=== PATIENT | male | born 1935 | race Caucasian/White ===

== ENCOUNTER 2024-01-20 13:09 | Emergency (ER) | payer MEDICARE, SELFPAY ==
--- NOTE | ~2024-01-20 | XR_ITS ---
EXAMINATION: XR chest 2V DATE: 01/20/2024 13:52 INDICATION: Cold symptoms. Fatigue. TECHNIQUE: Frontal and lateral views of the chest were obtained. COMPARISON: None. FINDINGS: There is no pneumonia, pleural effusion, or pneumothorax. The heart size is normal. There a re changes of vertebroplasty in lower thoracic spine. IMPRESSION: 1. No acute cardiopulmonary disease. Reviewed, dictated and finalized at location B.
--- NOTE | 2024-01-20 13:21 | ED_ITS ---
HPI - URI/Sore Throat General Chief Complaint: Upper Respiratory Infection Stated Complaint: Cold Symptoms Time Seen by Provider: 01/20/24 13:21 Source: patient, RN notes reviewed and old records reviewed Mode of arrival: ambulatory Limitations: no limitations History of Present Illness HPI Narrative: 88-year-old male to [facility] with complaint runny nose for several days followed by nonproductive started yesterday. Patient reports taking NyQuil before bed last night which allowed him to rest well. However, patient reports that it symptoms persist today. Patient denies shortness of breath, difficulty swallowing, chest pain, pertinent medical history. Patient resting comfortably in exam room in no acute distress. Respirations even and nonlabored. Related Data Allergies Allergy/AdvReac Type Severity Reaction Status Date / Time No Known Allergies Allergy Verified 01/20/24 13:40 Review of Systems Review of Systems: All systems reviewed & are unremarkable except as noted in HPI and below Constitutional: Constitutional: Reports no additional constitutional complaints Eyes: Eyes: Reports no additional eye complaints ENT: Reports as per HPI and Reports nasal discharge Cardiovascular: Cardiovascular: Reports no additional cardiovascular complaints, Denies chest pain and Denies dyspnea Respiratory: Respiratory: Reports no additional respiratory complaints, Reports cough and Denies dyspnea Musculoskeletal: Musculoskeletal: Reports no additional musculoskeletal complaints Neurologic: Reports system reviewed and no additional complaints, except as documented Psychiatric: Psychiatric: Reports no additional psychiatric complaints PMFSH Comments At the time of my signature, I reviewed and agree with the nursing past medical, surgical, social, and family history. There is no relevant family history pertinent to the patient complaint. Exam Const: General: cooperative, no acute distress, well developed, alert, tired appearing, well groomed and well nourished Nutritional Appearance: well nourished Orientation/consciousness: patient oriented x3 Limitations: no limitations HENMT: Head: normal to inspection Ears: external ears normal Face/Nose/Sinus: Normal external nose present, Normal nares present, normal facial exam, No erythema and No edema Face and sinus: normal facial exam, no erythema and no edema Mouth: Yes Normal oral and palatal mucosa present Eyes: General: appearance normal, both eyes and all related structures Neck: Neck: normal visual inspection, full ROM and no meningeal signs Lymphatic: no lymphadenopathy noted and no lymphedema noted Chest: Chest palpation & inspection: normal inspection of the chest Resp: Effort & Inspection: normal respiratory effort and able to speak in complete sentences Auscultation: crackles on the right in the mid lung wiley and on the left throughout and diminished lung sounds on the right throughout Cardio: Jugular venous distension: no JVD Rate: regular rate Rhythm: regular rhythm Back/Spine/Pelvis: Cervical Spine: cervical ROM normal Skin: General skin exam: normal color, no rashes or lesions noted and turgor normal Neuro: General: patient oriented x3, gait normal, moves all extremities and no meningeal signs Speech: normal speech Gait exam (Neuro): Normal gait present Extrem: General: normal to inspection, full ROM and capillary refill normal Psych: Appearance: grossly normal and well kempt Course Course Emergency Course: Some parts of this dictation were generated by voice recognition software and may contain typographical and/or grammatical inaccuracies. Level of Care: Express Care Visit Vital Signs Vital signs: Vital Signs Temperature 36.6 C 01/20/24 13:43 Pulse Rate 80 01/20/24 13:43 Respiratory Rate 16 01/20/24 13:43 Blood Pressure 136/56 L 01/20/24 13:43 Pulse Oximetry 96 01/20/24 13:43 Temperature 36.6 C 01/20/24 13:43 Pulse Rate 80 01/20/24 13:43 Respiratory Rate 16 01/20/24 13:43 Blood Pressure 136/56 L 01/20/24 13:43 Pulse Oximetry 96 01/20/24 13:43 reviewed MDM - URI/Sore Throat MDM Narrative Medical decision making narrative: 88-year-old male to [facility] with complaint runny nose for several days followed by nonproductive started yesterday. Patient reports taking NyQuil before bed last night which allowed him to rest well. However, patient reports that it symptoms persist today. Patient denies shortness of breath, difficulty swallowing, chest pain, pertinent medical history. Patient resting comfortably in exam room in no acute distress. Respirations even and nonlabored. On auscultation, crackles heard throughout left lung wiley; crackles heard in right mid lung; diminished right lower lung sounds. Patient appears tired. Respirations shallow. cough present during exam. Radiology report negative in clinic. Patient negative for COVID in clinic. Patient is sitting in exam room nontoxic in appearance. Patient appropriate for outpatient treatment and follow-up. Discharge instructions reviewed with patient, as well as provided in writing per nursing staff. The instructions also include specific and strict return/GO TO THE ER as well as f/u information. All questions have been answered, and the patient deny any further questions with discharge and discharge plan. Some parts of this dictation were generated by voice recognition software and may contain typographical and/or grammatical inaccuracies. Differential Diagnosis Differential diagnosis: Likely upper respiratory infection, croup, otitis media, sinusitis, viral infection, bronchitis, influenza and pharyngitis Lab Data Labs: Lab Results 01/20/24 Range/Units 13:58 POC SARS CoV-2 Ag Negative (Negative) Imaging Data Radiologist's impression: EXAMINATION: XR chest 2V DATE: 01/20/2024 13:52 INDICATION: Cold symptoms. Fatigue. TECHNIQUE: Frontal and lateral views of the chest were obtained. COMPARISON: None. FINDINGS: There is no pneumonia, pleural effusion, or pneumothorax. The heart size is normal. 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 IMPRESSION: 1. No acute cardiopulmonary disease. Discharge Plan Discharge Clinical Impression: Pneumonia Patient Disposition: Home, Self-Care Condition: Stable Instructions: Cold Symptoms (ED) Additional Instructions: Your rapid strep swab was negative today at [facility]. A throat culture will be sent to the laboratory for further testing. If the test is positive, you will receive a phone call within 48 hours and an appropriate antibiotic will be i nitiated at that time. Your Covid test is also pending can take up to 72 hours. Your symptoms are likely due to a viral illness, which is not treated with antibiotics. Viral symptoms can be present for up to a few weeks. -Alternate Tylenol and Motrin per package directions for fever or pain. -Antihistamine medication such as Benadryl at night and Zyrtec/Claritin/Namrata during the day can help improve symptoms. -Use Flonase twice a day for 5 days then daily to help reduce the inflammation and dry up your sinuses. -You can also use Sudafed or Mucinex. Be sure to drink plenty of water with these medications at least 8 ounces with every dose and it is important to drink 8 to 10 glasses of water per day. Water is a natural decongestant -Eat and drink things that are easy to swallow, like tea or soup, or popsicles. -Oral rinses such as: Salt water gargles and/or may use topical anesthetic (eg. Chloraseptic spray) or lozenges to relieve dryness or throat pain). -Frequent hand washing or hand vitreo retinal surgeon is one of the best ways to prevent spread of infection. -Using a vaporizer or humidifier at night will also help thin secretions and help with coughing up phlegm. -Follow up with primary care provider in 2-3 days if condition is not improving; or seek ER visit if you have trouble breathing, cannot drink enough fluids, have muffled voice, difficulty opening your mouth, or severe swelling. Prescriptions: New azithromycin 250 mg tablet 250 mg PO DAILY Qty: 6 0RF Rx Instructions: 250 mg orally. Take TWO tablets today, then one tablet daily for 4 days. prednisone 20 mg tablet 40 mg PO DAILY Qty: 5 0RF Rx Instructions: take in morning Follow-up/Referrals: Krishna Conti MD [Primary Care Provider] -
[2024-01-20 13:43] VITALS: BP 136/56; PULSE 80; RESP 16; TEMP 36.6; O2SAT 96
[2024-01-20 14:00] LABS: EDCOVIDSCREEN Negative (Negative)
== END 2024-01-20 14:29 | disposition home or self-care (01) ==
PROVIDERS: Emergency Provider Nurse Practitioner Family; PCP Emergency Medicine
DX: J18.9 Pneumonia, unspecified organism (principal); Z20.822 Contact with and (suspected) exposure to COVID-19; Z95.828 Presence of other vascular implants and grafts
CPT/HCPCS: 71046; 87426; 99203; G0463

== ENCOUNTER 2024-01-24 08:56 | Inpatient (IN) | payer MEDICARE, SELFPAY ==
[2024-01-24] VITALS (15 sets, daily range): BP systolic 138–182; BP diastolic 63–97; PULSE 88–110; RESP 17–24; TEMP 36.4–37; O2SAT 88–99; BMI 29.2
--- NOTE | ~2024-01-24 | XR_ITS ---
EXAMINATION: XR chest 2V DATE: 01/24/2024 10:13 INDICATION: Shortness of breath and cough. TECHNIQUE: Frontal and lateral views of the chest were obtained. COMPARISON: Chest 2 views 01/20/2024 FINDINGS: There is mild atelectasis at the lung bases. No pleural effusion or pneumothorax. The heart size is normal. There are changes of vertebroplasty at one level. IMPRESSION: 1. Mild atelectasis at the lung bases. Reviewed, dictated and finalized at location A. ERCIAL PORTFOLIO MANAGER
--- NOTE | ~2024-01-24 | US_ITS ---
EXAM: RENAL ULTRASOUND HISTORY: EUGENE COMPARISON: None FINDINGS: RIGHT KIDNEY: 9.5 x 4.9 x 5.1 cm. The parenchyma of the right kidney is increased in echogenicity. No hydronephrosis or bulky renal calculi. LEFT KIDNEY: 8.4 x 4.8 x 5.0 cm No hydronephrosis or renal calculi. The parenchyma of the left kidney is increased in echogenicity. BLADDER: Sonographically unremarkable. IMPRESSION: No hydronephrosis or renal calculi. Findings suggesting medical renal disease. Reviewed, dictated and finalized at location A. ERMAN HELPER
--- NOTE | ~2024-01-24 | CT_ITS ---
EXAMINATION: CTA chest PE protocol DATE: 01/24/2024 11:32 INDICATION: Shortness of breath. TECHNIQUE: Computed tomography angiography (CTA) of the chest was performed with 100 mL Omnipaque-350 intravenous contrast timed to evaluate the pulmonary arteries. Coronal maximum intensity projection 3D-reconstructions were created by the technologist. Automated exposure control and iterative reconst ruction technique were employed. The dose-length product was 512.24 mGy-cm. COMPARISON: None. FINDINGS: Motion artifact is noted. There is mild scarring at the lung apices. There is mild atelecta sis bilaterally. Calcified left lung nodules and calcified left hilar and mediastinal lymph nodes are consistent with old granulomatous disease. There are trace right and small left pleural effusions. T here is left atrial enlargement of the heart. 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 No pericardial effusion. The central pulmonary arteries are enlarged, consistent with pulmonary art erial hypertension. There is no pulmonary embolus. Calcifications in the spleen are consistent with o ld granulomatous disease. There are gallstones in the gallbladder, which is normal in size. There is severe cervical spondylosis and mild thoracic spondylosis. There is chronic height loss of T2, T3, T4 , T8, T11, and T12 vertebral bodies with changes of vertebroplasty at T11. IMPRESSION: 1. No pulmonary embolus. Sensitivity is mildly decreased by motion artifact. 2. Trace right and small left pleural effusions. Reviewed, dictated and finalized at location A. MASTER ASSISTANT
--- NOTE | 2024-01-24 09:04 | ECG_ITS ---
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
--- NOTE | 2024-01-24 09:05 | ED.SOB ---
HPI - SOB/Dyspnea General Chief Complaint: Shortness of Breath/Dyspnea <CARLOS Fraga Last Filed: 01/24/24 14:28> Stated Complaint: SOB <CARLOS Fraga Last Filed: 01/24/24 14:28> Time Seen by Provider: 01/24/24 09:00 <CARLOS Fraga Last Filed: 01/24/24 14:28> Source: patient <CARLOS Fraga Last Filed: 01/24/24 14:28> Mode of arrival: EMS <CARLOS Fraga Last Filed: 01/24/24 14:28> Limitations: no limitations <CARLOS Fraga Last Filed: 01/24/24 14:28> History of Present Illness HPI Narrative: Patient is an 88 y/o male who presents to the ED via EMS with report of SOB. Patient reports having increased shortness breath over the last few days. Worse with exertion. Also reports having a dry persistent cough over the last couple of days. Patient was seen at an urgent care on 01/19 and tested negative for COVID, had a negative CXR, was Rx'd zithromax and steroid pack. Denies improvement of symptoms. Denies previous lung issues. Denies fevers, chest pain, swelling in his lower extremities. <CARLOS Fraga Last Filed: 01/24/24 14:28> Related Data Home Medications: Home Medications Medication Instructions Recorded Confirmed No Home Medications 01/24/24 01/24/24 <CARLOS Fraga Last Filed: 01/24/24 14:28> Allergies/Adverse Reactions: Allergies Allergy/AdvReac Type Severity Reaction Status Date / Time Penicillins Allergy Hives Verified 01/24/24 09:07 <CARLOS Fraga Last Filed: 01/24/24 14:28> Review of Systems Review of Systems: All systems reviewed & are unremarkable except as noted in HPI. <CARLOS Fraga Last Filed: 01/24/24 14:28> All systems reviewed & are unremarkable except as noted in HPI and below <Renate Garcia PA-C - Last Filed: 01/24/24 14:28> PENDING SALE TO [facility] Social History Social History: Social History Smoking packs per day: 1.5 Smoking cigarettes per day: 30.0 Years smoked: 60 Smoking pack-years: 90.00 Smoking status: Former smoker Tobacco type: cigarettes Additional smoking assessment comments: quit 2021 Alcohol intake: never Substance use: never Do You Feel Safe in your Home?: Yes Lack of Transportation: No Lack of Food: Never True Current Housing: I Have Housing Concerned About Future Housing: No Difficulty Paying Gas/Electric Bills: No Difficulty Paying for Meds: No Currently Unemployed: No Education: Master's Degree or Higher Difficulty w/ Childcare or Family Care: No Spiritual care concerns: No <Renate Garcia PA-C - Last Filed: 01/24/24 14:28> Exam Narrative: GENERAL: Ill-appearing, elderly, obese with BMI of 30.1, non-toxic, in mild acute respiratory distress. HEAD: Normocephalic, atraumatic. RESPIRATORY: Airway patent, respirations labored with accessory muscle use. Diminished lung sounds in bases bilaterally, diffuse rhonchi, scattered expiatory wheezing - worse throughout right lung wiley. Conversational dyspnea. CARDIOVASCULAR: Tachycardic with regular rhythm without murmurs, rubs, or gallops. MUSCULOSKELETAL: Moves all extremities. No gross deformities. No peripheral edema. SKIN: Warm, dry, normal color. NEURO: A&O X3. Speech clear. PSYCHIATRIC: Appropriate mood and affect. Normal interaction. <Renate Garcia PA-C - Last Filed: 01/24/24 14:28> Course ELECTRIC BATH ATTENDANT/PA Physician Supervision Physician life enrichment assistant discussed with patient with known that he would be admitted for NSTEMI, concern possible new onset heart failure, and mildly doing 2 L nasal cannula. I was available for consultation in the Emergency Department but did not personally evaluate this patient and was otherwise not involved in their care. <Xuan Mayers MD - Last Filed: 01/25/24 11:38> Vital Signs Vital signs: Vital Signs Pulse Rate 110 H 01/24/24 08:59 Respiratory Rate 24 H 01/24/24 08:59 Blood Pressure 182/97 H 01/24/24 08:59 Pulse Oximetry 88 L 01/24/24 08:59 Oxygen Delivery Room Air 01/24/24 08:59 Temperature 98.2 F 01/25/24 08:00 Pulse Rate 97 01/25/24 10:00 Respiratory Rate 16 01/25/24 08:00 Blood Pressure 127/61 01/25/24 08:00 Pulse Oximetry 93 01/25/24 08:00 Oxygen Delivery Room Air 01/25/24 08:00 Oxygen Flow Rate 2 01/24/24 16:00 <Renate Garcia PA-C - Last Filed: 01/24/24 14:28> Vital Signs Pulse Rate 110 H 01/24/24 08:59 Respiratory Rate 24 H 01/24/24 08:59 Blood Pressure 182/97 H 01/24/24 08:59 Pulse Oximetry 88 L 01/24/24 08:59 Oxygen Delivery Room Air 01/24/24 08:59 Temperature 98.2 F 01/25/24 08:00 Pulse Rate 97 01/25/24 10:00 Respiratory Rate 16 01/25/24 08:00 Blood Pressure 127/61 01/25/24 08:00 Pulse Oximetry 93 01/25/24 08:00 Oxygen Delivery Room Air 01/25/24 08:00 Oxygen Flow Rate 2 01/24/24 16:00 <Xuan Mayers MD - Last Filed: 01/25/24 11:38> MDM - SOB/Dyspnea MDM Narrative Medical decision making narrative: Patient presented to ED with several day history of increased shortness of breath, cough. Patient hypoxic upon arrival to ED down to 88% on room air, tachycardic, tachypneic, accessory muscle use, some wheezing/rhonchi. Afebrile. Placed on 2L NC with stabilization of O2 sats. Continuous nebulizer Tx ordered. ABG fairly unremarkable. Normal pH. No CO2 retention. CBC with white blood cell count of 12.3. CMP with creatinine of 1.9. No records to compare to. Minimal lactic acidosis of 2.1. Otherwise stable electrolytes. Viral swabs are negative. EKG with sinus tachycardia, first-degree AV block, right bundle-branch block. Nonspecific ST changes. No acute ST elevation or depression. Baseline troponin resulted markedly elevated to 2.27. Patient denies any chest pain at this time or over the last couple of days. BNP is also moderately elevated to 12,000. patient denies previous congestive heart failure. No echo on file. He does not appear to have any peripheral edema on exam. Given 1 dose of lasix in the ED. CXR with atelectasis. No focal consolidation. D-dimer resulted elevated. CTA chest obtained and negative for PE, does show trace johanne pleural effusions. Patient will be admitted for further evaluation of hypoxia, possible new onset CHF, NSTEMI with continued trending of troponins, cardiology evaluation. Discussed case with Anna Triana, Cardiology ELECTRIC BATH ATTENDANT, will consult. Agrees w/ plan for heparin. Discussed case with Ivelisse midlevel hospitalist, accepted patient for admission. Patient and family in agreement with plan and need for admission. <Renate Garcia PA-C - Last Filed: 01/24/24 14:28> Medical Records Attestation: I reviewed the patient's medical records. <Renate Garcia PA-C - Last Filed: 01/24/24 14:28> Lab Data Attestation: I reviewed the patient's lab results. <Renate Garcia PA-C - Last Filed: 01/24/24 14:28> Result diagrams: 01/25/24 08:05 01/25/24 08:05 <Renate Garcia PA-C - Last Filed: 01/24/24 14:28> Labs: Lab Results 01/24/24 01/24/24 01/24/24 Range/Units 09:16 09:17 09:18 WBC 12.3 H (4.5-10.0) K/mm3 RBC 4.67 (4.6-6.20) M/mm3 Hgb 13.8 L (14.0-18.0) g/dL Hct 43.2 (42.0-52.0) % MCV 92.5 (80-100) fl MCH 29.6 (26-34) pg MCHC 31.9 L (32-36) g/dl RDW 13.3 (11.5-14.5) % Plt Count 204 (150-375) k/mm3 MPV 11.1 H (7.4-10.4) fl Immature Gran % (Auto) 0.6 H (0-0.5) % Neut % (Auto) 66.4 (45.5-73.1) % Lymph % (Auto) 25.3 (18.3-44.2) % Emmons % (Auto) 6.8 (2.6-8.5) % Eos % (Auto) 0.7 (0-4.4) % Baso % (Auto) 0.2 (0.2-1.2) % Lymph # (Auto) 3.11 (0.9-3.2) K/mm3 Emmons # (Auto) 0.8 H (0.1-0.6) K/mm3 Eos # (Auto) 0.1 (0-0.3) K/mm3 Baso # (Auto) 0.0 (0.0-0.1) K/mm3 Abs Immat Gran (auto) 0.07 H (0.00-0.031) K/mm3 Absolute Neuts (auto) 8.2 H (1.3-6.7) K/mm3 Absolute Nucleated RBC 0.000 (0.0-0.012) K/mm3 Nucleated RBC % 0.0 (0.0-0.2) % PT 14.5 (11.1-14.7) Seconds INR 1.1 APTT 25.6 (22.3-36.8) Seconds D-Dimer 1.64 H (<0.48) ug/mL Sodium 142 (137-145) mmol/L Potassium 4.2 (3.4-5.0) mmol/L Chloride 107 (98-107) mmol/L Carbon Dioxide 27 (22-30) mmol/L Anion Gap 8 (4-12) mmol/L BUN 38 H (9-20) mg/dL Creatinine 1.90 H (0.7-1.3) mg/dL Estim Creat Clear Calc 25 ml/min Estimated GFR 34 L (59 - ) Glucose 162 H (65-110) mg/dL Hemoglobin A1c 7.3 H (<5.7) % Lactic Acid 2.1 H (0.7-2.0) mmol/L Calcium 9.0 (8.4-10.2) mg/dL Total Bilirubin 1.1 (0.2-1.3) mg/dL AST 30 (17-59) U/L ALT 42 (6-50) U/L Alkaline Phosphatase 110 (38-126) U/L Troponin I 2.270 H* (0.000-0.034) ng/mL NT-Pro-B Natriuret Pep Cancelled 87937 H Total Protein 8.0 (6.3-8.2) g/dL Albumin 3.8 (3.5-5.1) g/dL Procalcitonin ng/mL Urine Color (Yellow) Urine Appearance (Clear) Urine pH (5.0-9.0) Ur Specific Pine Level (1.001-1.035) Urine Protein (Negative) mg/dL Urine Glucose (UA) (Negative) mg/dL Urine Ketones (Negative) mg/dL Ur Blood (Man) (Negative) Urine Nitrate (Negative) Urine Bilirubin (Negative) Urine Urobilinogen (<2.0) mg/dL Ur Leukocyte Esterase (Negative) WILLIAM/UL Leukocyte Esterase Rfl (Negative) WILLIAM/UL Urine RBC (0-2) /hpf Urine WBC (0-3) /hpf Ur Squamous Epith Cells (Few) /hpf Urine Bacteria /hpf Urine Casts Influenza A (RT-PCR) (Negative) Influenza B (RT-PCR) (Negative) RSV (RT-PCR) (Negative) SARS-CoV-2 RNA (RT-PCR) (Negative) 01/24/24 01/24/24 01/24/24 Range/Units 09:59 12:58 13:30 WBC (4.5-10.0) K/mm3 RBC (4.6-6.20) M/mm3 Hgb (14.0-18.0) g/dL Hct (42.0-52.0) % MCV (80-100) fl MCH (26-34) pg MCHC (32-36) g/dl RDW (11.5-14.5) % Plt Count (150-375) k/mm3 MPV (7.4-10.4) fl Immature Gran % (Auto) (0-0.5) % Neut % (Auto) (45.5-73.1) % Lymph % (Auto) (18.3-44.2) % Emmons % (Auto) (2.6-8.5) % Eos % (Auto) (0-4.4) % Baso % (Auto) (0.2-1.2) % Lymph # (Auto) (0.9-3.2) K/mm3 Emmons # (Auto) (0.1-0.6) K/mm3 Eos # (Auto) (0-0.3) K/mm3 Baso # (Auto) (0.0-0.1) K/mm3 Abs Immat Gran (auto) (0.00-0.031) K/mm3 Absolute Neuts (auto) (1.3-6.7) K/mm3 Absolute Nucleated RBC (0.0-0.012) K/mm3 Nucleated RBC % (0.0-0.2) % PT (11.1-14.7) Seconds INR APTT (22.3-36.8) Seconds D-Dimer (<0.48) ug/mL Sodium (137-145) mmol/L Potassium (3.4-5.0) mmol/L Chloride (98-107) mmol/L Carbon Dioxide (22-30) mmol/L Anion Gap (4-12) mmol/L BUN (9-20) mg/dL Creatinine (0.7-1.3) mg/dL Estim Creat Clear Calc ml/min Estimated GFR (59 - ) Glucose (65-110) mg/dL Hemoglobin A1c (<5.7) % Lactic Acid 3.1 H (0.7-2.0) mmol/L Calcium (8.4-10.2) mg/dL Total Bilirubin (0.2-1.3) mg/dL AST (17-59) U/L ALT (6-50) U/L Alkaline Phosphatase (38-126) U/L Troponin I 1.820 H* (0.000-0.034) ng/mL NT-Pro-B Natriuret Pep Total Protein (6.3-8.2) g/dL Albumin (3.5-5.1) g/dL Procalcitonin 2.0 ng/mL Urine Color Yellow (Yellow) Urine Appearance Clear (Clear) Urine pH 5.5 (5.0-9.0) Ur Specific [place] Level 1.021 (1.001-1.035) Urine Protein 1+ H (Negative) mg/dL Urine Glucose (UA) Trace H (Negative) mg/dL Urine Ketones Negative (Negative) mg/dL Ur Blood (Man) Negative (Negative) Urine Nitrate Negative (Negative) Urine Bilirubin Negative (Negative) Urine Urobilinogen 0.2 (<2.0) mg/dL Ur Leukocyte Esterase (Negative) WILLIAM/UL Leukocyte Esterase Rfl Negative (Negative) WILLIAM/UL Urine RBC 0-2 (0-2) /hpf Urine WBC 0-5 (0-3) /hpf Ur Squamous Epith Cells None seen (Few) /hpf Urine Bacteria None seen /hpf Urine Casts 0-2 Influenza A (RT-PCR) Negative (Negative) Influenza B (RT-PCR) Negative (Negative) RSV (RT-PCR) Negative (Negative) SARS-CoV-2 RNA (RT-PCR) Negative (Negative) 01/24/24 01/24/24 01/25/24 Range/Units 15:57 18:37 01:08 WBC (4.5-10.0) K/mm3 RBC (4.6-6.20) M/mm3 Hgb (14.0-18.0) g/dL Hct (42.0-52.0) % MCV (80-100) fl MCH (26-34) pg MCHC (32-36) g/dl RDW (11.5-14.5) % Plt Count (150-375) k/mm3 MPV (7.4-10.4) fl Immature Gran % (Auto) (0-0.5) % Neut % (Auto) (45.5-73.1) % Lymph % (Auto) (18.3-44.2) % Emmons % (Auto) (2.6-8.5) % Eos % (Auto) (0-4.4) % Baso % (Auto) (0.2-1.2) % Lymph # (Auto) (0.9-3.2) K/mm3 Emmons # (Auto) (0.1-0.6) K/mm3 Eos # (Auto) (0-0.3) K/mm3 Baso # (Auto) (0.0-0.1) K/mm3 Abs Immat Gran (auto) (0.00-0.031) K/mm3 Absolute Neuts (auto) (1.3-6.7) K/mm3 Absolute Nucleated RBC (0.0-0.012) K/mm3 Nucleated RBC % (0.0-0.2) % PT 14.4 (11.1-14.7) Seconds INR 1.1 APTT 37.5 H 54.8 H (22.3-36.8) Seconds D-Dimer (<0.48) ug/mL Sodium (137-145) mmol/L Potassium (3.4-5.0) mmol/L Chloride (98-107) mmol/L Carbon Dioxide (22-30) mmol/L Anion Gap (4-12) mmol/L BUN (9-20) mg/dL Creatinine (0.7-1.3) mg/dL Estim Creat Clear Calc ml/min Estimated GFR (59 - ) Glucose (65-110) mg/dL Hemoglobin A1c (<5.7) % Lactic Acid (0.7-2.0) mmol/L Calcium (8.4-10.2) mg/dL Total Bilirubin (0.2-1.3) mg/dL AST (17-59) U/L ALT (6-50) U/L Alkaline Phosphatase (38-126) U/L Troponin I 1.900 H* (0.000-0.034) ng/mL NT-Pro-B Natriuret Pep Total Protein (6.3-8.2) g/dL Albumin (3.5-5.1) g/dL Procalcitonin ng/mL Urine Color (Yellow) Urine Appearance (Clear) Urine pH (5.0-9.0) Ur Specific [place] Level (1.001-1.035) Urine Protein (Negative) mg/dL Urine Glucose (UA) (Negative) mg/dL Urine Ketones (Negative) mg/dL Ur Blood (Man) (Negative) Urine Nitrate (Negative) Urine Bilirubin (Negative) Urine Urobilinogen (<2.0) mg/dL Ur Leukocyte Esterase (Negative) WILLIAM/UL Leukocyte Esterase Rfl (Negative) WILLIAM/UL Urine RBC (0-2) /hpf Urine WBC (0-3) /hpf Ur Squamous Epith Cells (Few) /hpf Urine Bacteria /hpf Urine Casts Influenza A (RT-PCR) (Negative) Influenza B (RT-PCR) (Negative) RSV (RT-PCR) (Negative) SARS-CoV-2 RNA (RT-PCR) (Negative) 01/25/24 01/25/24 Range/Units 05:09 08:05 WBC 9.9 (4.5-10.0) K/mm3 RBC 5.00 (4.6-6.20) M/mm3 Hgb 15.0 (14.0-18.0) g/dL Hct 44.7 (42.0-52.0) % MCV 89.4 (80-100) fl MCH 30.0 (26-34) pg MCHC 33.6 (32-36) g/dl RDW 13.3 (11.5-14.5) % Plt Count 228 (150-375) k/mm3 MPV 10.6 H (7.4-10.4) fl Immature Gran % (Auto) 1.0 H (0-0.5) % Neut % (Auto) 70.7 (45.5-73.1) % Lymph % (Auto) 19.3 (18.3-44.2) % Emmons % (Auto) 7.4 (2.6-8.5) % Eos % (Auto) 1.4 (0-4.4) % Baso % (Auto) 0.2 (0.2-1.2) % Lymph # (Auto) 1.92 (0.9-3.2) K/mm3 Emmons # (Auto) 0.7 H (0.1-0.6) K/mm3 Eos # (Auto) 0.1 (0-0.3) K/mm3 Baso # (Auto) 0.0 (0.0-0.1) K/mm3 Abs Immat Gran (auto) 0.10 H (0.00-0.031) K/mm3 Absolute Neuts (auto) 7.0 H (1.3-6.7) K/mm3 Absolute Nucleated RBC 0.000 (0.0-0.012) K/mm3 Nucleated RBC % 0.0 (0.0-0.2) % PT (11.1-14.7) Seconds INR APTT 93.0 H (22.3-36.8) Seconds D-Dimer (<0.48) ug/mL Sodium 137 (137-145) mmol/L Potassium 3.9 (3.4-5.0) mmol/L Chloride 94 L (98-107) mmol/L Carbon Dioxide 32 H (22-30) mmol/L Anion Gap 11 (4-12) mmol/L BUN 41 H (9-20) mg/dL Creatinine 2.10 H (0.7-1.3) mg/dL Estim Creat Clear Calc 20 ml/min Estimated GFR 30 L (59 - ) Glucose 199 H (65-110) mg/dL Hemoglobin A1c (<5.7) % Lactic Acid (0.7-2.0) mmol/L Calcium 9.1 (8.4-10.2) mg/dL Total Bilirubin (0.2-1.3) mg/dL AST (17-59) U/L ALT (6-50) U/L Alkaline Phosphatase (38-126) U/L Troponin I (0.000-0.034) ng/mL NT-Pro-B Natriuret Pep Total Protein (6.3-8.2) g/dL Albumin (3.5-5.1) g/dL Procalcitonin ng/mL Urine Color Yellow (Yellow) Urine Appearance Clear (Clear) Urine pH 6.5 (5.0-9.0) Ur Specific [place] Level 1.010 (1.001-1.035) Urine Protein Negative (Negative) mg/dL Urine Glucose (UA) Negative (Negative) mg/dL Urine Ketones Negative (Negative) mg/dL Ur Blood (Man) Negative (Negative) Urine Nitrate Negative (Negative) Urine Bilirubin Negative (Negative) Urine Urobilinogen 0.2 (<2.0) mg/dL Ur Leukocyte Esterase Negative (Negative) WILLIAM/UL Leukocyte Esterase Rfl (Negative) WILLIAM/UL Urine RBC (0-2) /hpf Urine WBC (0-3) /hpf Ur Squamous Epith Cells (Few) /hpf Urine Bacteria /hpf Urine Casts Influenza A (RT-PCR) (Negative) Influenza B (RT-PCR) (Negative) RSV (RT-PCR) (Negative) SARS-CoV-2 RNA (RT-PCR) (Negative) <Renate Garcia PA-C - Last Filed: 01/24/24 14:28> Lab Results 01/24/24 01/24/24 01/24/24 Range/Units 09:16 09:17 09:18 WBC 12.3 H (4.5-10.0) K/mm3 RBC 4.67 (4.6-6.20) M/mm3 Hgb 13.8 L (14.0-18.0) g/dL Hct 43.2 (42.0-52.0) % MCV 92.5 (80-100) fl MCH 29.6 (26-34) pg MCHC 31.9 L (32-36) g/dl RDW 13.3 (11.5-14.5) % Plt Count 204 (150-375) k/mm3 MPV 11.1 H (7.4-10.4) fl Immature Gran % (Auto) 0.6 H (0-0.5) % Neut % (Auto) 66.4 (45.5-73.1) % Lymph % (Auto) 25.3 (18.3-44.2) % Emmons % (Auto) 6.8 (2.6-8.5) % Eos % (Auto) 0.7 (0-4.4) % Baso % (Auto) 0.2 (0.2-1.2) % Lymph # (Auto) 3.11 (0.9-3.2) K/mm3 Emmons # (Auto) 0.8 H (0.1-0.6) K/mm3 Eos # (Auto) 0.1 (0-0.3) K/mm3 Baso # (Auto) 0.0 (0.0-0.1) K/mm3 Abs Immat Gran (auto) 0.07 H (0.00-0.031) K/mm3 Absolute Neuts (auto) 8.2 H (1.3-6.7) K/mm3 Absolute Nucleated RBC 0.000 (0.0-0.012) K/mm3 Nucleated RBC % 0.0 (0.0-0.2) % PT 14.5 (11.1-14.7) Seconds INR 1.1 APTT 25.6 (22.3-36.8) Seconds D-Dimer 1.64 H (<0.48) ug/mL Sodium 142 (137-145) mmol/L Potassium 4.2 (3.4-5.0) mmol/L Chloride 107 (98-107) mmol/L Carbon Dioxide 27 (22-30) mmol/L Anion Gap 8 (4-12) mmol/L BUN 38 H (9-20) mg/dL Creatinine 1.90 H (0.7-1.3) mg/dL Estim Creat Clear Calc 25 ml/min Estimated GFR 34 L (59 - ) Glucose 162 H (65-110) mg/dL Hemoglobin A1c 7.3 H (<5.7) % Lactic Acid 2.1 H (0.7-2.0) mmol/L Calcium 9.0 (8.4-10.2) mg/dL Total Bilirubin 1.1 (0.2-1.3) mg/dL AST 30 (17-59) U/L ALT 42 (6-50) U/L Alkaline Phosphatase 110 (38-126) U/L Troponin I 2.270 H* (0.000-0.034) ng/mL NT-Pro-B Natriuret Pep Cancelled 26040 H Total Protein 8.0 (6.3-8.2) g/dL Albumin 3.8 (3.5-5.1) g/dL Procalcitonin ng/mL Urine Color (Yellow) Urine Appearance (Clear) Urine pH (5.0-9.0) Ur Specific [place] Level (1.001-1.035) Urine Protein (Negative) mg/dL Urine Glucose (UA) (Negative) mg/dL Urine Ketones (Negative) mg/dL Ur Blood (Man) (Negative) Urine Nitrate (Negative) Urine Bilirubin (Negative) Urine Urobilinogen (<2.0) mg/dL Ur Leukocyte Esterase (Negative) WILLIAM/UL Leukocyte Esterase Rfl (Negative) WILLIAM/UL Urine RBC (0-2) /hpf Urine WBC (0-3) /hpf Ur Squamous Epith Cells (Few) /hpf Urine Bacteria /hpf Urine Casts Influenza A (RT-PCR) (Negative) Influenza B (RT-PCR) (Negative) RSV (RT-PCR) (Negative) SARS-CoV-2 RNA (RT-PCR) (Negative) 01/24/24 01/24/24 01/24/24 Range/Units 09:59 12:58 13:30 WBC (4.5-10.0) K/mm3 RBC (4.6-6.20) M/mm3 Hgb (14.0-18.0) g/dL Hct (42.0-52.0) % MCV (80-100) fl MCH (26-34) pg MCHC (32-36) g/dl RDW (11.5-14.5) % Plt Count (150-375) k/mm3 MPV (7.4-10.4) fl Immature Gran % (Auto) (0-0.5) % Neut % (Auto) (45.5-73.1) % Lymph % (Auto) (18.3-44.2) % Emmons % (Auto) (2.6-8.5) % Eos % (Auto) (0-4.4) % Baso % (Auto) (0.2-1.2) % Lymph # (Auto) (0.9-3.2) K/mm3 Emmons # (Auto) (0.1-0.6) K/mm3 Eos # (Auto) (0-0.3) K/mm3 Baso # (Auto) (0.0-0.1) K/mm3 Abs Immat Gran (auto) (0.00-0.031) K/mm3 Absolute Neuts (auto) (1.3-6.7) K/mm3 Absolute Nucleated RBC (0.0-0.012) K/mm3 Nucleated RBC % (0.0-0.2) % PT (11.1-14.7) Seconds INR APTT (22.3-36.8) Seconds D-Dimer (<0.48) ug/mL Sodium (137-145) mmol/L Potassium (3.4-5.0) mmol/L Chloride (98-107) mmol/L Carbon Dioxide (22-30) mmol/L Anion Gap (4-12) mmol/L BUN (9-20) mg/dL Creatinine (0.7-1.3) mg/dL Estim Creat Clear Calc ml/min Estimated GFR (59 - ) Glucose (65-110) mg/dL Hemoglobin A1c (<5.7) % Lactic Acid 3.1 H (0.7-2.0) mmol/L Calcium (8.4-10.2) mg/dL Total Bilirubin (0.2-1.3) mg/dL AST (17-59) U/L ALT (6-50) U/L Alkaline Phosphatase (38-126) U/L Troponin I 1.820 H* (0.000-0.034) ng/mL NT-Pro-B Natriuret Pep Total Protein (6.3-8.2) g/dL Albumin (3.5-5.1) g/dL Procalcitonin 2.0 ng/mL Urine Color Yellow (Yellow) Urine Appearance Clear (Clear) Urine pH 5.5 (5.0-9.0) Ur Specific [place] Level 1.021 (1.001-1.035) Urine Protein 1+ H (Negative) mg/dL Urine Glucose (UA) Trace H (Negative) mg/dL Urine Ketones Negative (Negative) mg/dL Ur Blood (Man) Negative (Negative) Urine Nitrate Negative (Negative) Urine Bilirubin Negative (Negative) Urine Urobilinogen 0.2 (<2.0) mg/dL Ur Leukocyte Esterase (Negative) WILLIAM/UL Leukocyte Esterase Rfl Negative (Negative) WILLIAM/UL Urine RBC 0-2 (0-2) /hpf Urine WBC 0-5 (0-3) /hpf Ur Squamous Epith Cells None seen (Few) /hpf Urine Bacteria None seen /hpf Urine Casts 0-2 Influenza A (RT-PCR) Negative (Negative) Influenza B (RT-PCR) Negative (Negative) RSV (RT-PCR) Negative (Negative) SARS-CoV-2 RNA (RT-PCR) Negative (Negative) 01/24/24 01/24/24 01/25/24 Range/Units 15:57 18:37 01:08 WBC (4.5-10.0) K/mm3 RBC (4.6-6.20) M/mm3 Hgb (14.0-18.0) g/dL Hct (42.0-52.0) % MCV (80-100) fl MCH (26-34) pg MCHC (32-36) g/dl RDW (11.5-14.5) % Plt Count (150-375) k/mm3 MPV (7.4-10.4) fl Immature Gran % (Auto) (0-0.5) % Neut % (Auto) (45.5-73.1) % Lymph % (Auto) (18.3-44.2) % Emmons % (Auto) (2.6-8.5) % Eos % (Auto) (0-4.4) % Baso % (Auto) (0.2-1.2) % Lymph # (Auto) (0.9-3.2) K/mm3 Emmons # (Auto) (0.1-0.6) K/mm3 Eos # (Auto) (0-0.3) K/mm3 Baso # (Auto) (0.0-0.1) K/mm3 Abs Immat Gran (auto) (0.00-0.031) K/mm3 Absolute Neuts (auto) (1.3-6.7) K/mm3 Absolute Nucleated RBC (0.0-0.012) K/mm3 Nucleated RBC % (0.0-0.2) % PT 14.4 (11.1-14.7) Seconds INR 1.1 APTT 37.5 H 54.8 H (22.3-36.8) Seconds D-Dimer (<0.48) ug/mL Sodium (137-145) mmol/L Potassium (3.4-5.0) mmol/L Chloride (98-107) mmol/L Carbon Dioxide (22-30) mmol/L Anion Gap (4-12) mmol/L BUN (9-20) mg/dL Creatinine (0.7-1.3) mg/dL Estim Creat Clear Calc ml/min Estimated GFR (59 - ) Glucose (65-110) mg/dL Hemoglobin A1c (<5.7) % Lactic Acid (0.7-2.0) mmol/L Calcium (8.4-10.2) mg/dL Total Bilirubin (0.2-1.3) mg/dL AST (17-59) U/L ALT (6-50) U/L Alkaline Phosphatase (38-126) U/L Troponin I 1.900 H* (0.000-0.034) ng/mL NT-Pro-B Natriuret Pep Total Protein (6.3-8.2) g/dL Albumin (3.5-5.1) g/dL Procalcitonin ng/mL Urine Color (Yellow) Urine Appearance (Clear) Urine pH (5.0-9.0) Ur Specific [place] (1.001-1.035) Urine Protein (Negative) mg/dL Urine Glucose (UA) (Negative) mg/dL Urine Ketones (Negative) mg/dL Ur Blood (Man) (Negative) Urine Nitrate (Negative) Urine Bilirubin (Negative) Urine Urobilinogen (<2.0) mg/dL Ur Leukocyte Esterase (Negative) WILLIAM/UL Leukocyte Esterase Rfl (Negative) WILLIAM/UL Urine RBC (0-2) /hpf Urine WBC (0-3) /hpf Ur Squamous Epith Cells (Few) /hpf Urine Bacteria /hpf Urine Casts Influenza A (RT-PCR) (Negative) Influenza B (RT-PCR) (Negative) RSV (RT-PCR) (Negative) SARS-CoV-2 RNA (RT-PCR) (Negative) 01/25/24 01/25/24 Range/Units 05:09 08:05 WBC 9.9 (4.5-10.0) K/mm3 RBC 5.00 (4.6-6.20) M/mm3 Hgb 15.0 (14.0-18.0) g/dL Hct 44.7 (42.0-52.0) % MCV 89.4 (80-100) fl MCH 30.0 (26-34) pg MCHC 33.6 (32-36) g/dl RDW 13.3 (11.5-14.5) % Plt Count 228 (150-375) k/mm3 MPV 10.6 H (7.4-10.4) fl Immature Gran % (Auto) 1.0 H (0-0.5) % Neut % (Auto) 70.7 (45.5-73.1) % Lymph % (Auto) 19.3 (18.3-44.2) % Emmons % (Auto) 7.4 (2.6-8.5) % Eos % (Auto) 1.4 (0-4.4) % Baso % (Auto) 0.2 (0.2-1.2) % Lymph # (Auto) 1.92 (0.9-3.2) K/mm3 Emmons # (Auto) 0.7 H (0.1-0.6) K/mm3 Eos # (Auto) 0.1 (0-0.3) K/mm3 Baso # (Auto) 0.0 (0.0-0.1) K/mm3 Abs Immat Gran (auto) 0.10 H (0.00-0.031) K/mm3 Absolute Neuts (auto) 7.0 H (1.3-6.7) K/mm3 Absolute Nucleated RBC 0.000 (0.0-0.012) K/mm3 Nucleated RBC % 0.0 (0.0-0.2) % PT (11.1-14.7) Seconds INR APTT 93.0 H (22.3-36.8) Seconds D-Dimer (<0.48) ug/mL Sodium 137 (137-145) mmol/L Potassium 3.9 (3.4-5.0) mmol/L Chloride 94 L (98-107) mmol/L Carbon Dioxide 32 H (22-30) mmol/L Anion Gap 11 (4-12) mmol/L BUN 41 H (9-20) mg/dL Creatinine 2.10 H (0.7-1.3) mg/dL Estim Creat Clear Calc 20 ml/min Estimated GFR 30 L (59 - ) Glucose 199 H (65-110) mg/dL Hemoglobin A1c (<5.7) % Lactic Acid (0.7-2.0) mmol/L Calcium 9.1 (8.4-10.2) mg/dL Total Bilirubin (0.2-1.3) mg/dL AST (17-59) U/L ALT (6-50) U/L Alkaline Phosphatase (38-126) U/L Troponin I (0.000-0.034) ng/mL NT-Pro-B Natriuret Pep Total Protein (6.3-8.2) g/dL Albumin (3.5-5.1) g/dL Procalcitonin ng/mL Urine Color Yellow (Yellow) Urine Appearance Clear (Clear) Urine pH 6.5 (5.0-9.0) Ur Specific [place] 1.010 (1.001-1.035) Urine Protein Negative (Negative) mg/dL Urine Glucose (UA) Negative (Negative) mg/dL Urine Ketones Negative (Negative) mg/dL Ur Blood (Man) Negative (Negative) Urine Nitrate Negative (Negative) Urine Bilirubin Negative (Negative) Urine Urobilinogen 0.2 (<2.0) mg/dL Ur Leukocyte Esterase Negative (Negative) WILLIAM/UL Leukocyte Esterase Rfl (Negative) WILLIAM/UL Urine RBC (0-2) /hpf Urine WBC (0-3) /hpf Ur Squamous Epith Cells (Few) /hpf Urine Bacteria /hpf Urine Casts Influenza A (RT-PCR) (Negative) Influenza B (RT-PCR) (Negative) RSV (RT-PCR) (Negative) SARS-CoV-2 RNA (RT-PCR) (Negative) <Xuan Mayers MD - Last Filed: 01/25/24 11:38> ABG Data ABG results: 01/24/24 09:25 Puncture Site Right radial ABG pH 7.370 ABG pCO2 43.8 ABG pO2 74.5 L ABG PO2/FiO2 Ratio 2.66 ABG HCO3 24.8 ABG O2 Saturation 94.6 L ABG O2 Content 18.1 ABG Base Excess -0.7 A-a Gradient 73.5 Oxyhemoglobin 93.3 Total Hemoglobin 13.8 O2 Delivery Device Nasal cannula O2 Liters/Min 2.0 FiO2 28 <Renate Garcia PA-C - Last Filed: 01/24/24 14:28> 01/24/24 09:25 Puncture Site Right radial ABG pH 7.370 ABG pCO2 43.8 ABG pO2 74.5 L ABG PO2/FiO2 Ratio 2.66 ABG HCO3 24.8 ABG O2 Saturation 94.6 L ABG O2 Content 18.1 ABG Base Excess -0.7 A-a Gradient 73.5 Oxyhemoglobin 93.3 Total Hemoglobin 13.8 O2 Delivery Device Nasal cannula O2 Liters/Min 2.0 FiO2 28 <Xuan Mayers MD - Last Filed: 01/25/24 11:38> Attestation: I personally reviewed and interpreted this ABG as follows: <Renate Garcia PA-C - Last Filed: 01/24/24 14:28> Imaging Data Attestation: I personally reviewed and interpreted this imaging study as follows: <CARLOS Fraga Last Filed: 01/24/24 14:28> Radiologist's impression: ITS Impressions Chest X-Ray 01/24/24 10:23 IMPRESSION: 1. Mild atelectasis at the lung bases. Chest CTA 01/24/24 11:36 IMPRESSION: 1. No pulmonary embolus. Sensitivity is mildly decreased by motion artifact. 2. Trace right and small left pleural effusions. <Renate Garcia PA-C - Last Filed: 01/24/24 14:28> ECG Data EKG #1: Attestation: I personally reviewed and interpreted this ECG as follows: <CARLOS Fraga Last Filed: 01/24/24 14:28> ECG completion date: 01/24/24 <CARLOS Fraga Last Filed: 01/24/24 14:28> ECG completion time: 09:12 <CARLOS Fraga Last Filed: 01/24/24 14:28> EKG Interpretation: tachycardia (103), sinus rhythm (1st degree AV block), PVCs, non-specific ST changes and RBBB <CARLOS Fraga Last Filed: 01/24/24 14:28> Discharge Plan Discharge Clinical Impression: Non-ST elevation MA (NSTEMI), Acute hypoxic respiratory failure, CHF (congestive heart failure), Lactic acidosis <CARLOS Fraga Last Filed: 01/24/24 14:28> Patient Disposition: Still a Patient <CARLOS Fraga Last Filed: 01/24/24 14:28> Condition: Serious <CARLOS Fraga Last Filed: 01/24/24 14:28>
[2024-01-24 09:30] LABS: Basophils Percent Auto 0.2 % (0.2-1.2); Eosinophils Absolute Auto 0.1 K/mm3 (0-0.3); Eosinophils Percent Auto 0.7 % (0-4.4); Hematocrit 43.2 % (42.0-52.0); Hemoglobin 13.8 g/dL (14.0-18.0); Immature Granulocyte Absolute 0.07 K/mm3 (0.00-0.031); Immature Granulocyte Percent A 0.6 % (0-0.5); Lymphocytes Absolute Auto 3.11 K/mm3 (0.9-3.2); Lymphocytes Percent Auto 25.3 % (18.3-44.2); Mean Corpuscular HGB Conc 31.9 g/dl (32-36); Mean Corpuscular Hemoglobin 29.6 pg (26-34); Mean Corpuscular Volume 92.5 fl (80-100); Mean Platelet Volume 11.1 fl (7.4-10.4); Monocytes Absolute Auto 0.8 K/mm3 (0.1-0.6); Monocytes Percent Auto 6.8 % (2.6-8.5); Neutrophils Absolute Auto 8.2 K/mm3 (1.3-6.7); Neutrophils Percent Auto 66.4 % (45.5-73.1); Platelet Count Result 204 k/mm3 (150-375); Red Blood Count 4.67 M/mm3 (4.6-6.20); Red Cell Distribution Width 13.3 % (11.5-14.5); White Blood Count 12.3 K/mm3 (4.5-10.0)
[2024-01-24 09:33] LABS: Alveolar/Arterial O2 Gradient 73.5 mmHg; Base Excess ABG -0.7 mEq/l (+/-2.0); Device NASAL CANNULA; Fractional Inspired Oxygen 28 %; HCO3 ABG 24.8 mEq/l (22.0-26.0); Modified Allen's Test Pass; Oxygen Content ABG 18.1 %vol (16.0-22.0); Oxygen Saturation ABG 94.6 % (95.0-100.0); Oxyhemoglobin 93.3 % THb (90.0-100.0); PCO2 ABG 43.8 mmHg (35.0-45.0); PO2 ABG 74.5 mmHg (80.0-100.0); PO2 FiO2 Ratio Arterial Blood 2.66 %; Site Drawn RIGHT RADIAL; Total Hemoglobin 13.8 g/dL (12.0-18.0)
[2024-01-24] MEDS: LEVALBUTEROL NEB 1.25 MG/3 ML 2.5 MG INHALATION (09:36)
[2024-01-24] MEDS: IPRATROPIUM BR 0.02% INH SOLN 0.5 MG/2.5 ML VIAL 1.5 MG INHALATION (09:36)
[2024-01-24 09:40] LABS: Lactic Acid Reflex 2.1 mmol/L (0.7-2.0)
[2024-01-24 09:41] LABS: Alanine Aminotransferase 42 U/L (6-50); Albumin Level 3.8 g/dL (3.5-5.1); Alkaline Phosphatase 110 U/L (38-126); Anion Gap 8 mmol/L (4-12); Aspartate Amino Transferase 30 U/L (17-59); Bilirubin,Total 1.1 mg/dL (0.2-1.3); Blood Urea Nitrogen 38 mg/dL (9-20); Carbon Dioxide 27 mmol/L (22-30); Chloride 107 mmol/L (98-107); Estimated CRCL calculation 25 ml/min; Estimated Glomerular Filt Rate 34; Glucose 162 mg/dL (65-110); Potassium 4.2 mmol/L (3.4-5.0); Sodium 142 mmol/L (137-145)
[2024-01-24 09:55] LABS: NT Pro B Type Natriuretic Pept 12000 pg/mL (19.9-100)
[2024-01-24 10:02] LABS: INR 1.1; Prothrombin Time 14.5 Seconds (11.1-14.7)
[2024-01-24 10:03] LABS: Partial Thromboplastin Time 25.6 Seconds (22.3-36.8)
[2024-01-24 10:34] LABS: D Dimer 1.64 ug/mL (<0.48)
[2024-01-24 10:42] LABS: Influenza A QL RT-PCR Negative (Negative); Influenza B QL RT-PCR Negative (Negative); RSV RNA, RT-PCR Negative (Negative); SARS-CoV-2 RNA PCR Negative (Negative)
[2024-01-24] MEDS: FUROSEMIDE INJ 40 MG/4 ML VIAL IV PUSH ×2 (10:56→22:20)
[2024-01-24] MEDS: HEPARIN SODIUM 5,000 UNITS/ML VIAL 4000 UNITS IV PUSH ×2 (12:19→19:01)
[2024-01-24] MEDS: HEPARIN SOD/D5W 100 UNITS/ML 25,000 UNITS/250 ML BAG 8 UNITS IV CONT (12:19)
--- NOTE | 2024-01-24 12:20 | P.HP_ITS ---
H&P: HPI History of Present Illness Date/Time: 01/24/24 12:20 Chief Complaint: shortness of breath Narrative: 88-year-old male presents to the hospital for shortness of breath. He states that the shortness of breath has increased over the last couple days. Per the the patient does not go to the doctor however she brought him into the emergency room due to him being short of breath. Patient is hard of hearing and denies complaints. Patient denies history of chronic comorbidities. And takes no home medications. In ED is found have leukocytosis at 12.3, D-dimer of 1.64, ABG with P O2 of 74.5, creatinine of 1.9, lactic acid of 2.1, troponin baseline of 2.27, BNP of 12,000, respiratory panel is negative, CTA shows no pulmonary embolism, no pneumonia, and trace bilateral small pleural effusions. Patient was started on heparin drip and given IV Lasix, Cardiology was consulted and agreed with plan. Will admit to patient to IMU for close monitoring of respiratory status. Patient reassessed at 8:00 p.m. with severe rhonchi IV Lasix x1 given again Review of Systems Review of Systems: 12 systems were reviewed and are negativ e except for as per HPI. [facility] Social History Social History Smoking packs per day: 1.5 Smoking cigarettes per day: 30.0 Years smoked: 60 Smoking pack-years: 90.00 Smoking status: Former smoker Tobacco type: cigarettes Additional smoking assessment comments: quit 2021 Alcohol intake: never Substance use: never Do You Feel Safe in your Home?: Yes Lack of Transportation: No Lack of Food: Never True Current Housing: I Have Housing Concerned About Future Housing: No Difficulty Paying Gas/Electric Bills: No Difficulty Paying for Meds: No Currently Unemployed: No Education: Master's Degree or Higher Difficulty w/ Childcare or Family Care: No Spiritual care concerns: No Meds Home Medications and Allergies Home Medications Medication Instructions Recorded Confirmed Type No Home Medications 01/24/24 01/24/24 History Allergies Allergy/AdvReac Type Severity Reaction Status Date / Time Penicillins Allergy Hives Verified 01/24/24 09:07 Vital Signs Vital Signs - 24 hr 01/24/24 08:59 01/24/24 09:07 11/04/24 09:07 Temperature 98.5 F Pulse Rate 110 H Respiratory Rate 24 H Blood Pressure 182/97 H Pulse Oximetry 88 L 95 Oxygen Delivery Room Air Nasal Cannula Oxygen Flow Rate 2 01/24/24 09:36 01/24/24 10:39 01/24/24 10:55 Temperature Pulse Rate 95 105 H 108 H Respiratory Rate 20 20 24 H Blood Pressure 162/78 H 166/70 H Pulse Oximetry 98 98 Oxygen Delivery Oxygen Flow Rate Exam Narrative: General: well appearing, appears stated age. HEENT: normocephalic, atraumatic. Mucous membranes moist. EOMI, PERRLA, bilateral sclera anicteric, no conjunctival injection. Neck supple without JVD, lymphadenopathy, or bruit. Respiratory: clear to ascultation bilaterally. No rales/rhonic/wheezes. Cardiovascular: Regular rate and rhythm, normal S1-S2 upon ascultation. No murmurs, rubs, or clicks. PMI is nondisplaced, capillary refill less than 3 second. Abdomen: Soft, round, no pulsatile masses, nondistended and nontender. No rebound, no guarding. No CVA tenderness, no hepatosplenomegaly. Bowel sounds present to all four quadrants. No high pitch or tinkling sounds, resonant to percussion. Extremities: No cyanosis, clubbing, or edema present. Pulses are palpable 2/2. Active ROM to all four extremities. Neuro: Alert and orientated x 4. PERRLA. Cranial nerves 2-12 intact without focal deficit. Skin: Warm, dry, and intact, without rash, erythema, or lesion. Psych: pleasant, cooperative, normal speech, normal affect, no hallucinations, no dysarthia H&P: Results Labs Labs: Short CBC 01/24/24 Range/Units 09:17 WBC 12.3 H (4.5-10.0) K/mm3 Hgb 13.8 L (14.0-18.0) g/dL Hct 43.2 (42.0-52.0) % Plt Count 204 (150-375) k/mm3 [facility] 01/24/24 09:18 Sodium 142 Potassium 4.2 Chloride 107 Carbon Dioxide 27 BUN 38 H Creatinine 1.90 H Glucose 162 H Calcium 9.0 Cardiac Enzymes 01/24/24 Range/Units 09:18 Troponin I 2.270 H* (0.000-0.034) ng/mL Liver Function 01/24/24 Range/Units 09:18 Total Bilirubin 1.1 (0.2-1.3) mg/dL AST 30 (17-59) U/L ALT 42 (6-50) U/L Alkaline Phosphatase 110 (38-126) U/L Albumin 3.8 (3.5-5.1) g/dL Assessment and Plan Assessment and plan (1) Non-ST elevation NM (NSTEMI): Code(s): I21.4 - Non-ST elevation (NSTEMI) myocardial infarction Status: Acute Assessment and Plan: Cardiology consulted Heparin drip per protocol Trend troponin, troponins trending down NPO midnight for possible catheterization, likely demand ischemia (2) CHF (congestive heart failure): Code(s): I50.9 - Heart failure, unspecified Status: Acute Assessment and Plan: Echocardiogram pending Heart healthy diet IV Lasix x2 Daily IV Lasix scheduled, adjust as needed (3) Acute hypoxic respiratory failure: Code(s): J96.01 - Acute respiratory failure with hypoxia Status: Acute Assessment and Plan: Secondary to 1 and 2 Telemetry monitoring (4) Leukocytosis: Code(s): D72.829 - Elevated white blood cell count, unspecified Status: Acute Assessment and Plan: CT chest negative for pneumonia Blood cultures pending UA pending No infective source identified (5) Hyperglycemia: Code(s): R73.9 - Hyperglycemia, unspecified Status: Acute Assessment and Plan: Patient denies history of diabetes Hemoglobin A1c pending (6) Lactic acidosis: Code(s): E87.20 - Acidosis, unspecified Status: Acute Assessment and Plan: No fluid bolus given per sepsis protocol due to patient being fluid overloaded No pulmonary infective process seen on CT UA pending Blood cultures pending No known source of infection Quality VTE Prophylaxis VTE prophylaxis: mechanical ordered and pharmacologic ordered Hospitalist MIPS Advance Care Plan I have confirmed that the patient's Advanced Care Plan is present, code status is documented, or surrogate decision maker is listed in patient medical record.: Yes Medication Reconciliation I have utilized all available resources to obtain, update and review the patients current medications (includes all prescriptions, OTC, herbals, cannabis, and nutritional supplements).: Yes
[2024-01-24 12:23] LABS: Reflex Lactic Acid Yes or No Add Lactic
--- NOTE | 2024-01-24 12:26 | PC.NURSE ---
Pt c/o thirst. Provider made aware. CARLOS Dewitt states pt can drink water.
--- NOTE | 2024-01-24 12:46 | P.CONCA_ITS ---
Assessment and Plan Assessment and plan (1) CHF (congestive heart failure): Code(s): I50.9 - Heart failure, unspecified Status: Acute Assessment and Plan: This would be a new diagnosis for the patient. Agree with IV furosemide for now. * Check and echo * Accurate I&O * Daily weights * Wean O2 as tolerated (2) Non-ST elevation [place] (NSTEMI): Code(s): I21.4 - Non-ST elevation (NSTEMI) myocardial infarction Status: Acute Assessment and Plan: He denies any chest pain, however initial troponin is elevated at 2.270. Likely demand ischemia because of hypoxia and volume overload. However, cannot rule out underlying CAD. His EKG dose not show any acute ischemic changes. * Agree with heparin drip for now * Will review echo for LV dysfunction and/or wall motion abnormalities. * Trend troponin * NPO after midnight for possible coronary angiogram tomorrow depending on clinical course, troponin trend, and echo results (3) Acute hypoxic respiratory failure: Code(s): J96.01 - Acute respiratory failure with hypoxia Status: Acute Assessment and Plan: Secondary to CHF. History of Present Illness History of Present Illness Consult date/time: 01/24/24 12:46 Requesting physician: Renate Garcia PA-C Consult reason: congestive heart failure Reason For Visit: SOB Narrative: Vincent Wade is an 88 year old male with reportedly no cardiac history. He presents to the emergency department with complaints of cough and shortness of breath. He began feeling poorly around the middle of last week and went to urgent care where he was tested for influenza and COVID which were negative. According to the patient's he was prescribed a Z pack and prednisone but his symptoms persisted so she decided to bring him to the hospital for evaluation. He was hypoxic when he presented with SpO2 88%. He denies having any swelling, orthopnea, paroxysmal nocturnal dyspnea, chest pain, palpitations. He denies any history of chest pain. In the ED his workup has revealed leukocytosis with WBC 12.3, D-dimer of 1.64, ABG with P O2 of 7.45, creatinine of 1.9, lactic acid of 2.1, initial troponin 2.27, BNP of 12,000, respiratory panel is negative, CTA shows no pulmonary embolism, no pneumonia, and trace bilateral small pleural effusions. He has been started in a heparin drip and received IV furosemide. He is lying comfortably in bed at the time of my evaluation and does not have any active complaints. Review of Systems Review of Systems: All systems reviewed & are unremarkable except as noted in HPI and below Meds Home Medications and Allergies Home Medications Medication Instructions Recorded Confirmed Type azithromycin 250 mg tablet 250 mg PO DAILY #6 tabs 01/20/24 Rx prednisone 20 mg tablet 40 mg PO DAILY #5 tabs 01/20/24 Rx Allergies Allergy/AdvReac Type Severity Reaction Status Date / Time Penicillins Allergy Hives Verified 01/24/24 09:07 Vital Signs Vital Signs - 24 hr 01/24/24 08:59 01/24/24 09:07 01/24/24 09:07 Temperature 36.9 C Pulse Rate 110 H Respiratory Rate 24 H Blood Pressure 182/97 H Pulse Oximetry 88 L 95 Oxygen Delivery Room Air Nasal Cannula Oxygen Flow Rate 2 01/24/24 09:36 01/24/24 10:39 01/24/24 10:55 Temperature Pulse Rate 95 105 H 108 H Respiratory Rate 20 20 24 H Blood Pressure 162/78 H 166/70 H Pulse Oximetry 98 98 Oxygen Delivery Oxygen Flow Rate 01/24/24 12:22 Temperature Pulse Rate 104 H Respiratory Rate 17 Blood Pressure 149/74 H Pulse Oximetry 96 Oxygen Delivery Oxygen Flow Rate Results Labs and Meds 01/24/24 09:17 01/24/24 09:18 Lab results: Cardiac Enzymes 01/24/24 Range/Units 09:18 AST 30 (17-59) U/L Troponin I 2.270 H* (0.000-0.034) ng/mL Coagulation 01/24/24 Range/Units 09:17 PT 14.5 (11.1-14.7) Seconds APTT 25.6 (22.3-36.8) Seconds CBC 01/24/24 Range/Units 09:17 WBC 12.3 H (4.5-10.0) K/mm3 RBC 4.67 (4.6-6.20) M/mm3 Hgb 13.8 L (14.0-18.0) g/dL Hct 43.2 (42.0-52.0) % Plt Count 204 (150-375) k/mm3 Lymph # (Auto) 3.11 (0.9-3.2) K/mm3 [place] # (Auto) 0.8 H (0.1-0.6) K/mm3 Eos # (Auto) 0.1 (0-0.3) K/mm3 Baso # (Auto) 0.0 (0.0-0.1) K/mm3 Comprehensive Metabolic Panel 01/24/24 Range/Units 09:18 Sodium 142 (137-145) mmol/L Potassium 4.2 (3.4-5.0) mmol/L Chloride 107 (98-107) mmol/L Carbon Dioxide 27 (22-30) mmol/L BUN 38 H (9-20) mg/dL Creatinine 1.90 H (0.7-1.3) mg/dL Glucose 162 H (65-110) mg/dL Calcium 9.0 (8.4-10.2) mg/dL AST 30 (17-59) U/L ALT 42 (6-50) U/L Alkaline Phosphatase 110 (38-126) U/L Total Protein 8.0 (6.3-8.2) g/dL Albumin 3.8 (3.5-5.1) g/dL Patient Weight 01/24/24 23:59 Weight 82 kg
[2024-01-24 13:12] LABS: Lactic Acid 3.1 mmol/L (0.7-2.0)
[2024-01-24 13:44] LABS: Add Urine Microscopic? YES; Appearance Urine Clear (Clear); Bacteria Urine None Seen /hpf; Bilirubin Urine Negative (Negative); Blood Urine Negative (Negative); Color Urine Yellow (Yellow); Glucose Urine UA Trace mg/dL (Negative); Ketones Urine Negative (Negative); Leukocyte Esterase Ur Negative LEU/UL (Negative); Nitrate Urine Negative (Negative); Non Pathogenic Casts 0-2; Protein Urine 1+ mg/dL (Negative); RBC Urine 0-2 /hpf (0-2); Specific Grav Ur 1.021 (1.001-1.035); Squamous Epithelial Cell Urine None Seen /hpf (Few); Urobilinogen Urine 0.2 mg/dL (<2.0); WBC Urine 0-5 /hpf (0-3); pH Urine 5.5 (5.0-9.0)
--- NOTE | 2024-01-24 15:43 | ADMGEN ---
This patient, Vincent Wade Jr., was admitted to IMU Room 209-01. Patient/family oriented to hospital policies and general routines including ID bracelet, bed and alarms, visiting hours, pain management, procedures, bathroom and other care routines, personal items, smoking policy, room service/diet, and visiting hours. Information on how to activate the Rapid Response Team has been discussed. Patient/Family are encouraged to report perceived risks to care and to ask questions if they do not understand what they are told or what they should do. Report received from ESTELA Almazan @ [phone]
[2024-01-24 18:54] LABS: INR 1.1; Prothrombin Time 14.4 Seconds (11.1-14.7)
[2024-01-24 18:55] LABS: Partial Thromboplastin Time 37.5 Seconds (22.3-36.8)
[2024-01-25] VITALS (19 sets, daily range): BP systolic 99–140; BP diastolic 42–78; PULSE 63–97; RESP 16–24; TEMP 36.5–37; O2SAT 91–98
[2024-01-25 01:25] LABS: Partial Thromboplastin Time 54.8 Seconds (22.3-36.8)
[2024-01-25] MEDS: HEPARIN SODIUM 5,000 UNITS/ML VIAL 4000 UNITS IV PUSH (02:02)
[2024-01-25 05:18] LABS: Add Urine Microscopic? NO; Appearance Urine Clear (Clear); Bilirubin Urine Negative (Negative); Blood Urine Negative (Negative); Color Urine Yellow (Yellow); Glucose Urine UA Negative (Negative); Ketones Urine Negative (Negative); Leukocyte Esterase Ur Negative LEU/UL (Negative); Nitrate Urine Negative (Negative); Protein Urine Negative (Negative); Urobilinogen Urine 0.2 mg/dL (<2.0); pH Urine 6.5 (5.0-9.0)
[2024-01-25 07:32] LABS: Hemoglobin A1C 7.3 % (<5.7)
[2024-01-25] MEDS: FUROSEMIDE INJ 40 MG/4 ML VIAL IV PUSH (08:05)
[2024-01-25 08:12] LABS: Basophils Percent Auto 0.2 % (0.2-1.2); Eosinophils Absolute Auto 0.1 K/mm3 (0-0.3); Eosinophils Percent Auto 1.4 % (0-4.4); Hematocrit 44.7 % (42.0-52.0); Lymphocytes Absolute Auto 1.92 K/mm3 (0.9-3.2); Lymphocytes Percent Auto 19.3 % (18.3-44.2); Mean Corpuscular HGB Conc 33.6 g/dl (32-36); Mean Corpuscular Volume 89.4 fl (80-100); Mean Platelet Volume 10.6 fl (7.4-10.4); Monocytes Absolute Auto 0.7 K/mm3 (0.1-0.6); Monocytes Percent Auto 7.4 % (2.6-8.5); Neutrophils Percent Auto 70.7 % (45.5-73.1); Platelet Count Result 228 k/mm3 (150-375); Red Cell Distribution Width 13.3 % (11.5-14.5); White Blood Count 9.9 K/mm3 (4.5-10.0)
--- NOTE | 2024-01-25 10:12 | P.PNIM_ITS ---
Progress Note: A&P Assessment and Plan (1) Diabetes mellitus: Code(s): E11.9 - Type 2 diabetes mellitus without complications Status: Acute (2) EUGENE (acute kidney injury): Code(s): N17.9 - Acute kidney failure, unspecified Status: Acute (3) Hyperglycemia: Code(s): R73.9 - Hyperglycemia, unspecified Status: Acute (4) CHF (congestive heart failure): Code(s): I50.9 - Heart failure, unspecified Status: Acute (5) Non-ST elevation [place] (NSTEMI): Code(s): I21.4 - Non-ST elevation (NSTEMI) myocardial infarction Status: Acute (6) Acute hypoxic respiratory failure: Code(s): J96.01 - Acute respiratory failure with hypoxia Status: Acute Plan 88-year-old male presents to the hospital for shortness of breath. He states that the shortness of breath has increased over the last couple days. Per the the patient does not go to the doctor however she brought him into the emergency room due to him being short of breath. Non-ST elevation MT (NSTEMI): Code(s): I21.4 - Non-ST elevation (NSTEMI) myocardial infarction Status: Acute Assessment and Plan: Cardiology consulted Heparin drip per protocol Trend troponin, troponins trending down plan catheterization tomorrow CHF (congestive heart failure): Code(s): I50.9 - Heart failure, unspecified Status: Acute Assessment and Plan: Echocardiogram pending Heart healthy diet IV Lasix x2 Daily IV Lasix scheduled, adjust as needed Acute hypoxic respiratory failure: Code(s): J96.01 - Acute respiratory failure with hypoxia Status: Acute Assessment and Plan: Secondary to 1 and 2 Telemetry monitoring now on room air Acute bacterial bronchitis Leukocytosis: Code(s): D72.829 - Elevated white blood cell count, unspecified Status: Acute Assessment and Plan: CT chest negative for pneumonia Blood cultures pending UA unremarkable Patient has cough with scant phlegm, worsening in past few more days days Suspecting acute bacterial bronchitis Patient also has scattered wheezing bilaterally Start doxycycline 100 mg q.12 hours p.o., Start DuoNeb scheduled Q 8 hours EUGENE versus CKD Elevated BUN creatinine 38/1.9,unknown baseline Urinalysis unremarkable Follow-up renal ultrasound 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 Patient has mild cough with some phlegm. Labs reviewed, patient is afebrile, blood pressure stable, on the lower side Exam Narrative: GENERAL: Pleasant, in no acute distress. Well-nourished. - EYES: EOMI. Anicteric. - HENT: Moist mucous membranes. - LUNGS: Scattered wheezing bilaterally - CARDIOVASCULAR: Regular rate and rhyth m. No murmur. No JVD. - ABDOMEN: Soft, non-tender and non-dist ended. No palpable masses. - EXTREMITIES: No edema. Peripheral puls es 2+. Non-tender. - NEUROLOGIC: No focal neurological defi cits. CN II-XII grossly intact. - PSYCHIATRIC: Awake, Alert and oriented x 3. Appropriate mood and affect. - SKIN: No rashes or lesions. Warm. - LYMPH: No cervical lymphadenopathy. Objective Data Vital Signs Vital Signs: Vital Signs - 24 hr 01/24/24 10:39 01/24/24 10:55 01/24/24 12:22 Temperature Pulse Rate 105 H 108 H 104 H Respiratory Rate 20 24 H 17 Blood Pressure 166/70 H 149/74 H Pulse Oximetry 98 96 Oxygen Delivery Oxygen Flow Rate 01/24/24 14:14 01/24/24 15:13 01/24/24 16:04 Temperature 97.5 F L Pulse Rate 101 H 96 94 Respiratory Rate 21 H 20 20 Blood Pressure 156/72 H 138/74 144/71 H Pulse Oximetry 99 98 98 Oxygen Delivery Oxygen Flow Rate 01/24/24 16:00 01/24/24 16:00 01/24/24 18:00 Temperature Pulse Rate 94 92 Respiratory Rate Blood Pressure Pulse Oximetry 95 Oxygen Delivery Nasal Cannula Oxygen Flow Rate 2 01/24/24 19:58 01/24/24 20:00 01/24/24 20:33 Temperature 98.6 F Pulse Rate 92 88 89 Respiratory Rate 20 20 Blood Pressure 148/63 H Pulse Oximetry 98 96 Oxygen Delivery Room Air Oxygen Flow Rate 01/24/24 22:00 01/25/24 00:02 01/25/24 00:00 Temperature 97.7 F Pulse Rate 88 84 86 Respiratory Rate 20 Blood Pressure 140/78 Pulse Oximetry 98 Oxygen Delivery Oxygen Flow Rate 01/25/24 00:00 01/25/24 02:00 01/25/24 04:00 Temperature Pulse Rate 84 84 96 Respiratory Rate 18 Blood Pressure Pulse Oximetry 98 Oxygen Delivery Room Air Oxygen Flow Rate 01/25/24 04:00 01/25/24 04:00 01/25/24 06:00 Temperature 97.8 F Pulse Rate 96 82 79 Respiratory Rate 20 18 Blood Pressure 137/66 Pulse Oximetry 98 98 Oxygen Delivery Room Air Oxygen Flow Rate 01/25/24 08:00 01/25/24 08:00 Temperature 98.2 F Pulse Rate 83 Respiratory Rate 16 Blood Pressure 127/61 Pulse Oximetry 93 Oxygen Delivery Room Air Oxygen Flow Rate Intake/Output Intake/Output: Intake & Output 01/23/24 01/23/24 01/24/24 01/25/24 00:59 23:59 23:59 23:59 Intake Total 273.5 288.4 Output Total 1000 1450 Balance -726.5 -1161.6 Meds/Results Medications: Active Medications Generic Name Dose Route Start Last Admin Trade Name Freq PRN Reason Stop Dose Admin Dextrose 12.5 gm 01/24/24 12:21 Dextrose 50% 25 Gm/50 Ml Syringe IV PUSH PRN PRN Hypoglycemia Protocol Furosemide 40 mg 01/25/24 09:00 01/25/24 08:05 Furosemide Inj 40 Mg/4 Ml Vial IV PUSH 40 mg DAILY JUAN A Administration Glucagon 1 mg 01/24/24 12:21 Glucagon For Inj 1 Mg Vial IM PRN PRN Hypoglycemia Protocol Glucose 15 gm 01/24/24 12:21 Glucose Oral Gel 15 Gm Of Glucse In 37.5 Gm Tube PO PRN PRN Hypoglycemia Protocol Heparin Sodium (Porcine) 4,000 units 01/24/24 11:53 01/25/24 02:02 Heparin Sodium 5,000 Units/Ml Vial IV PUSH 4,000 units PRN PRN Administration aPTT less than 55 seconds Heparin Sodium (Porcine) 3,000 units 01/24/24 12:12 Heparin Sodium 5,000 Units/Ml Vial IV PUSH PRN PRN aPTT 55 - 70 seconds Heparin Sodium/Dextrose 25,000 units in 250 mls @ 14 mls/hr 01/24/24 11:55 01/25/24 08:32 Heparin Sodium/D5w 100 Units/Ml IV CONT 1,400 units/hr .[id number] JUAN A 14 mls/hr Titration Protocol 1,400 UNITS/HR Dextrose 1,000 mls @ 100 mls/hr 01/24/24 12:21 Dextrose 5% 1,000 Ml IVPB PRN PRN Hypoglycemia Protocol Perflutren Lipid Microsphere 0 ml 01/24/24 12:21 Perflutren Lipid Microspheres 1.5 Ml Vial Diluted To 10 Ml Total Volume IV PUSH 01/27/24 12:22 ONCE PRN adequate visualization Protocol Radiology Results: ITS Impressions Chest X-Ray 01/24/24 10:23 IMPRESSION: 1. Mild atelectasis at the lung bases. Chest CTA 01/24/24 11:36 IMPRESSION: 1. No pulmonary embolus. Sensitivity is mildly decreased by motion artifact. 2. Trace right and small left pleural effusions. Labs Labs: Laboratory Results - last 24 hr 01/24/24 01/24/24 01/24/24 09:16 09:17 09:59 WBC RBC Hgb Hct MCV MCH MCHC RDW Plt Count MPV Immature Gran % (Auto) Neut % (Auto) Lymph % (Auto) [place] % (Auto) Eos % (Auto) Baso % (Auto) Lymph # (Auto) [place] # (Auto) Eos # (Auto) Baso # (Auto) Abs Immat Gran (auto) Absolute Neuts (auto) Absolute Nucleated RBC Nucleated RBC % PT 14.5 INR 1.1 APTT 25.6 D-Dimer 1.64 H Hemoglobin A1c 7.3 H Lactic Acid Troponin I Procalcitonin Urine Color Urine Appearance Urine pH Ur Specific [place] Urine Protein Urine Glucose (UA) Urine Ketones Ur Blood (Man) Urine Nitrate Urine Bilirubin Urine Urobilinogen Ur Leukocyte Esterase Leukocyte Esterase Rfl Urine RBC Urine WBC Ur Squamous Epith Cells Urine Bacteria Urine Casts Influenza A (RT-PCR) Negative Influenza B (RT-PCR) Negative RSV (RT-PCR) Negative SARS-CoV-2 RNA (RT-PCR) Negative 01/24/24 01/24/24 01/24/24 12:58 13:30 15:57 WBC RBC Hgb Hct MCV MCH MCHC RDW Plt Count MPV Immature Gran % (Auto) Neut % (Auto) Lymph % (Auto) [place] % (Auto) Eos % (Auto) Baso % (Auto) Lymph # (Auto) [place] # (Auto) Eos # (Auto) Baso # (Auto) Abs Immat Gran (auto) Absolute Neuts (auto) Absolute Nucleated RBC Nucleated RBC % PT INR APTT D-Dimer Hemoglobin A1c Lactic Acid 3.1 H Troponin I 1.820 H* 1.900 H* Procalcitonin 2.0 Urine Color Yellow Urine Appearance Clear Urine pH 5.5 Ur Specific [place] 1.021 Urine Protein 1+ H Urine Glucose (UA) Trace H Urine Ketones Negative Ur Blood (Man) Negative Urine Nitrate Negative Urine Bilirubin Negative Urine Urobilinogen 0.2 Ur Leukocyte Esterase Leukocyte Esterase Rfl Negative Urine RBC 0-2 Urine WBC 0-5 Ur Squamous Epith Cells None seen Urine Bacteria None seen Urine Casts 0-2 Influenza A (RT-PCR) Influenza B (RT-PCR) RSV (RT-PCR) SARS-CoV-2 RNA (RT-PCR) 01/24/24 01/25/24 01/25/24 18:37 01:08 05:09 WBC RBC Hgb Hct MCV MCH MCHC RDW Plt Count MPV Immature Gran % (Auto) Neut % (Auto) Lymph % (Auto) [place] % (Auto) Eos % (Auto) Baso % (Auto) Lymph # (Auto) [place] # (Auto) Eos # (Auto) Baso # (Auto) Abs Immat Gran (auto) Absolute Neuts (auto) Absolute Nucleated RBC Nucleated RBC % PT 14.4 INR 1.1 APTT 37.5 H 54.8 H D-Dimer Hemoglobin A1c Lactic Acid Troponin I Procalcitonin Urine Color Yellow Urine Appearance Clear Urine pH 6.5 Ur Specific [place] 1.010 Urine Protein Negative Urine Glucose (UA) Negative Urine Ketones Negative Ur Blood (Man) Negative Urine Nitrate Negative Urine Bilirubin Negative Urine Urobilinogen 0.2 Ur Leukocyte Esterase Negative Leukocyte Esterase Rfl Urine RBC Urine WBC Ur Squamous Epith Cells Urine Bacteria Urine Casts Influenza A (RT-PCR) Influenza B (RT-PCR) RSV (RT-PCR) SARS-CoV-2 RNA (RT-PCR) 01/25/24 08:05 WBC 9.9 RBC 5.00 Hgb 15.0 Hct 44.7 MCV 89.4 MCH 30.0 MCHC 33.6 RDW 13.3 Plt Count 228 MPV 10.6 H Immature Gran % (Auto) 1.0 H Neut % (Auto) 70.7 Lymph % (Auto) 19.3 [place] % (Auto) 7.4 Eos % (Auto) 1.4 Baso % (Auto) 0.2 Lymph # (Auto) 1.92 [place] # (Auto) 0.7 H Eos # (Auto) 0.1 Baso # (Auto) 0.0 Abs Immat Gran (auto) 0.10 H Absolute Neuts (auto) 7.0 H Absolute Nucleated RBC 0.000 Nucleated RBC % 0.0 PT INR APTT 93.0 H D-Dimer Hemoglobin A1c Lactic Acid Troponin I Procalcitonin Urine Color Urine Appearance Urine pH Ur Specific [place] Urine Protein Urine Glucose (UA) Urine Ketones Ur Blood (Man) Urine Nitrate Urine Bilirubin Urine Urobilinogen Ur Leukocyte Esterase Leukocyte Esterase Rfl Urine RBC Urine WBC Ur Squamous Epith Cells Urine Bacteria Urine Casts Influenza A (RT-PCR) Influenza B (RT-PCR) RSV (RT-PCR) SARS-CoV-2 RNA (RT-PCR)
[2024-01-25] MEDS: HEPARIN SOD/D5W 100 UNITS/ML 25,000 UNITS/250 ML BAG 14 UNITS IV CONT (10:35)
[2024-01-25 10:42] LABS: Anion Gap 11 mmol/L (4-12); Blood Urea Nitrogen 41 mg/dL (9-20); Calcium 9.1 mg/dL (8.4-10.2); Carbon Dioxide 32 mmol/L (22-30); Chloride 94 mmol/L (98-107); Estimated CRCL calculation 20 ml/min; Estimated Glomerular Filt Rate 30; Glucose 199 mg/dL (65-110); Potassium 3.9 mmol/L (3.4-5.0); Sodium 137 mmol/L (137-145)
--- NOTE | 2024-01-25 12:08 | PM.CNNEP ---
Assessment and Plan Assessment and plan (1) EUGENE (acute kidney injury): Code(s): N17.9 - Acute kidney failure, unspecified Status: Acute (2) Acute hypoxic respiratory failure: Code(s): J96.01 - Acute respiratory failure with hypoxia Status: Acute (3) CHF (congestive heart failure): Code(s): I50.9 - Heart failure, unspecified Status: Acute History of Present Illness Reason for Consult Consult date: 01/25/24 Reason for consult: acute renal failure (versus CKD versus EUGENE on CKD?) Chief Complaint Chief complaint: Acute CHF, Hypoxia, NSTEMI Review of Systems Review of Systems: As per HPI. [facility] Social History Social History Smoking packs per day: 1.5 Smoking cigarettes per day: 30.0 Years smoked: 60 Smoking pack-years: 90.00 Smoking status: Former smoker Tobacco type: cigarettes Additional smoking assessment comments: quit 2021 Alcohol intake: never Substance use: never Do You Feel Safe in your Home?: Yes Lack of Transportation: No Lack of Food: Never True Current Housing: I Have Housing Concerned About Future Housing: No Difficulty Paying Gas/Electric Bills: No Difficulty Paying for Meds: No Currently Unemployed: No Education: Master's Degree or Higher Difficulty w/ Childcare or Family Care: No Spiritual care concerns: No Meds Home Medications and Allergies Home Medications Medication Instructions Recorded Confirmed Type No Home Medications 01/24/24 01/24/24 History Allergies Allergy/AdvReac Type Severity Reaction Status Date / Time Penicillins Allergy Hives Verified 01/24/24 09:07 Vital Signs Vital Signs Temp Pulse Resp BP Pulse Ox O2 Del Method 01/25/24 12:00 98.0 F 90 24 H 99/42 L 91 01/25/24 11:43 92 Room Air 01/25/24 10:00 97 01/25/24 08:00 Room Air 01/25/24 08:00 98.2 F 83 16 127/61 93 01/25/24 06:00 79 01/25/24 04:00 97.8 F 82 18 137/66 98 01/25/24 04:00 96 20 98 Room Air 01/25/24 04:00 96 01/25/24 02:00 84 01/25/24 00:00 84 18 98 Room Air 01/25/24 00:00 86 01/25/24 00:02 97.7 F 84 20 140/78 98 01/24/24 22:00 88 01/24/24 20:33 98.6 F 89 20 148/63 H 96 01/24/24 20:00 88 20 98 Room Air 01/24/24 19:58 92 01/24/24 18:00 92 Results Lab Results 01/25/24 08:05 01/25/24 08:05 Lab results: Most recent lab results ABG pH 7.370 (7.350-7.450) 01/24/24 09:25 ABG pCO2 43.8 mmHg (35.0-45.0) 01/24/24 09:25 ABG pO2 74.5 mmHg (80.0-100.0) L 01/24/24 09:25 ABG HCO3 24.8 mEq/l (22.0-26.0) 01/24/24 09:25 ABG O2 Saturation 94.6 % (95.0-100.0) L 01/24/24 09:25 Calcium 9.1 mg/dL (8.4-10.2) 01/25/24 08:05
--- NOTE | 2024-01-25 12:37 | P.PNCA_ITS ---
Progress Note: A&P Assessment and Plan (1) CHF (congestive heart failure): Code(s): I50.9 - Heart failure, unspecified Status: Acute Assessment and Plan: This would be a new diagnosis for the patient. Agree with IV Furosemide for now. * Check echo * Accurate I&O * Daily weights * Wean O2 as tolerated (2) Non-ST elevation ME (NSTEMI): Code(s): I21.4 - Non-ST elevation (NSTEMI) myocardial infarction Status: Acute Assessment and Plan: He denies any chest pain, however initial troponin elevated at 2.270, which then downtrended. Likely demand ischemia because of hypoxia and volume overload. However, cannot rule out underlying CAD. His EKG dose not show any acute ischemic changes. 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 * Agree with heparin drip for now * Will start ASA 81mg once daily, high intensity statin. Will check lipid panel. * Will review echo for LV dysfunction and/or wall motion abnormalities. * NPO after midnight for possible coronary angiogram tomorrow depending on clinical course and echo results (3) Acute hypoxic respiratory failure: Code(s): J96.01 - Acute respiratory failure with hypoxia Status: Acute Assessment and Plan: Secondary to CHF. (4) EUGENE (acute kidney injury): Code(s): N17.9 - Acute kidney failure, unspecified Status: Acute Assessment and Plan: SCr 1.9 on admission, increased to 2.10 now. Unclear what his baseline is. Will closely monitor renal function with IV diuresis. (5) Diabetes mellitus: Code(s): E11.9 - Type 2 diabetes mellitus without complications Status: Acute Assessment and Plan: Hgb A1c is 7.3, which is a new diagnosis for the patient. [facility] as [facility] team. Subjective Date/time seen: 01/25/24 12:37 Interval history: Reason for visit: CHF, elevated troponins HPI: Vincent Wade is an 88 year old male with reportedly no cardiac history. He presents to the emergency department with complaints of cough and shortness of breath. He began feeling poorly around the middle of last week and went to urgent care where he was tested for influenza and COVID which were negative. According to the patient's he was prescribed a Z pack and prednisone but his symptoms persisted so she decided to bring him to the hospital for evaluation. He was hypoxic when he presented with SpO2 88%. He denies having any swelling, orthopnea, paroxysmal nocturnal dyspnea, chest pain, palpitations. He denies any history of chest pain. In the ED his workup has revealed leukocytosis with WBC 12.3, D-dimer of 1.64, ABG with P O2 of 7.45, creatinine of 1.9, lactic acid of 2.1, initial troponin 2.27, BNP of 12,000, respiratory panel is negative, CTA shows no pulmonary embolism, no pneumonia, and trace bilateral small pleural effusions. He has been started in a heparin drip and received IV furosemide. He is lying comfortably in bed at the time of my evaluation and does not have any active complaints. Date of service 01/24: He states he is feeling better. No shortness of breath. He is hard of hearing. Review of Systems Review of Systems: All systems reviewed & are unremarkable except as noted in HPI and below (HPI) Exam Const: General: no acute distress HENMT: Mouth: Yes moist mucous membranes Eyes: General: appearance normal, both eyes and all related structures Sclera: sclerae normal Resp: Effort & Inspection: normal respiratory effort Cardio: Rate: regular rate Rhythm: regular rhythm Heart sounds: no murmurs Skin: General skin exam: normal color Neuro: Speech: normal speech Psych: Mental Status: mental status grossly normal Affect: normal affect Objective Data Vital Signs Vital Signs: Vital Signs - 24 hr 01/24/24 14:14 01/24/24 15:13 01/24/24 16:04 Temperature 36.4 C L Pulse Rate 101 H 96 94 Respiratory Rate 21 H 20 20 Blood Pressure 156/72 H 138/74 144/71 H Pulse Oximetry 99 98 98 Oxygen Delivery Oxygen Flow Rate 01/24/24 16:00 01/24/24 16:00 01/24/24 18:00 Temperature Pulse Rate 94 92 Respiratory Rate Blood Pressure Pulse Oximetry 95 Oxygen Delivery Nasal Cannula Oxygen Flow Rate 2 01/24/24 19:58 01/24/24 20:00 01/24/24 20:33 Temperature 37.0 C Pulse Rate 92 88 89 Respiratory Rate 20 20 Blood Pressure 148/63 H Pulse Oximetry 98 96 Oxygen Delivery Room Air Oxygen Flow Rate 01/24/24 22:00 01/25/24 00:02 01/25/24 00:00 Temperature 36.5 C Pulse Rate 88 84 86 Respiratory Rate 20 Blood Pressure 140/78 Pulse Oximetry 98 Oxygen Delivery Oxygen Flow Rate 01/25/24 00:00 01/25/24 02:00 01/25/24 04:00 Temperature Pulse Rate 84 84 96 Respiratory Rate 18 Blood Pressure Pulse Oximetry 98 Oxygen Delivery Room Air Oxygen Flow Rate 01/25/24 04:00 01/25/24 04:00 01/25/24 06:00 Temperature 36.6 C Pulse Rate 96 82 79 Respiratory Rate 20 18 Blood Pressure 137/66 Pulse Oximetry 98 98 Oxygen Delivery Room Air Oxygen Flow Rate 01/25/24 08:00 01/25/24 08:00 01/25/24 10:00 Temperature 36.8 C Pulse Rate 83 97 Respiratory Rate 16 Blood Pressure 127/61 Pulse Oximetry 93 Oxygen Delivery Room Air Oxygen Flow Rate 01/25/24 11:43 01/25/24 12:00 01/25/24 12:00 Temperature 36.7 C Pulse Rate 90 Respiratory Rate 24 H Blood Pressure 99/42 L Pulse Oximetry 92 91 Oxygen Delivery Room Air Room Air Oxygen Flow Rate 01/25/24 12:00 Temperature Pulse Rate 92 Respiratory Rate Blood Pressure Pulse Oximetry Oxygen Delivery Oxygen Flow Rate Intake/Output Intake/Output: Intake & Output 01/23/24 01/23/24 01/24/24 01/25/24 00:59 23:59 23:59 23:59 Intake Total 273.5 316.5 Output Total 1000 1450 Balance -726.5 -1133.5 Meds/Results Medications: Active Medications Generic Name Dose Route Start Last Admin Trade Name Freq PRN Reason Stop Dose Admin Dextrose 12.5 gm 01/24/24 12:21 Dextrose 50% 25 Gm/50 Ml Syringe IV PUSH PRN PRN Hypoglycemia Protocol Furosemide 40 mg 01/25/24 09:00 01/25/24 08:05 Furosemide Inj 40 Mg/4 Ml Vial IV PUSH 40 mg DAILY JUAN A Administration Glucagon 1 mg 01/24/24 12:21 Glucagon For Inj 1 Mg Vial IM PRN PRN Hypoglycemia Protocol Glucose 15 gm 01/24/24 12:21 Glucose Oral Gel 15 Gm Of Glucse In 37.5 Gm Tube PO PRN PRN Hypoglycemia Protocol Heparin Sodium (Porcine) 4,000 units 01/24/24 11:53 01/25/24 02:02 Heparin Sodium 5,000 Units/Ml Vial IV PUSH 4,000 units PRN PRN Administration aPTT less than 55 seconds Heparin Sodium (Porcine) 3,000 units 01/24/24 12:12 Heparin Sodium 5,000 Units/Ml Vial IV PUSH PRN PRN aPTT 55 - 70 seconds Heparin Sodium/Dextrose 25,000 units in 250 mls @ 14 mls/hr 01/24/24 11:55 01/25/24 10:35 Heparin Sodium/D5w 100 Units/Ml IV CONT 1,400 units/hr .[id number] JUAN A 14 mls/hr Administration Protocol 1,400 UNITS/HR Dextrose 1,000 mls @ 100 mls/hr 01/24/24 12:21 Dextrose 5% 1,000 Ml IVPB PRN PRN Hypoglycemia Protocol Perflutren Lipid Microsphere 0 ml 01/24/24 12:21 Perflutren Lipid Microspheres 1.5 Ml Vial Diluted To 10 Ml Total Volume IV PUSH 01/27/24 12:22 ONCE PRN adequate visualization Protocol Radiology Results: ITS Impressions Chest X-Ray 01/24/24 10:23 IMPRESSION: 1. Mild atelectasis at the lung bases. Chest CTA 01/24/24 11:36 IMPRESSION: 1. No pulmonary embolus. Sensitivity is mildly decreased by motion artifact. 2. Trace right and small left pleural effusions. Labs Labs: Laboratory Results - last 24 hr 01/24/24 01/24/24 01/24/24 09:16 12:58 13:30 WBC RBC Hgb Hct MCV MCH MCHC RDW Plt Count MPV Immature Gran % (Auto) Neut % (Auto) Lymph % (Auto) [place] % (Auto) Eos % (Auto) Baso % (Auto) Lymph # (Auto) [place] # (Auto) Eos # (Auto) Baso # (Auto) Abs Immat Gran (auto) Absolute Neuts (auto) Absolute Nucleated RBC Nucleated RBC % PT INR APTT Sodium Potassium Chloride Carbon Dioxide Anion Gap BUN Creatinine Estim Creat Clear Calc Estimated GFR Glucose Hemoglobin A1c 7.3 H Lactic Acid 3.1 H Calcium Troponin I 1.820 H* Procalcitonin 2.0 Urine Color Yellow Urine Appearance Clear Urine pH 5.5 Ur Specific [place] 1.021 Urine Protein 1+ H Urine Glucose (UA) Trace H Urine Ketones Negative Ur Blood (Man) Negative Urine Nitrate Negative Urine Bilirubin Negative Urine Urobilinogen 0.2 Ur Leukocyte Esterase Leukocyte Esterase Rfl Negative Urine RBC 0-2 Urine WBC 0-5 Ur Squamous Epith Cells None seen Urine Bacteria None seen Urine Casts 0-2 01/24/24 01/24/24 01/25/24 15:57 18:37 01:08 WBC RBC Hgb Hct MCV MCH MCHC RDW Plt Count MPV Immature Gran % (Auto) Neut % (Auto) Lymph % (Auto) [place] % (Auto) Eos % (Auto) Baso % (Auto) Lymph # (Auto) [place] # (Auto) Eos # (Auto) Baso # (Auto) Abs Immat Gran (auto) Absolute Neuts (auto) Absolute Nucleated RBC Nucleated RBC % PT 14.4 INR 1.1 APTT 37.5 H 54.8 H Sodium Potassium Chloride Carbon Dioxide Anion Gap BUN Creatinine Estim Creat Clear Calc Estimated GFR Glucose Hemoglobin A1c Lactic Acid Calcium Troponin I 1.900 H* Procalcitonin Urine Color Urine Appearance Urine pH Ur Specific [place] Urine Protein Urine Glucose (UA) Urine Ketones Ur Blood (Man) Urine Nitrate Urine Bilirubin Urine Urobilinogen Ur Leukocyte Esterase Leukocyte Esterase Rfl Urine RBC Urine WBC Ur Squamous Epith Cells Urine Bacteria Urine Casts 01/25/24 01/25/24 05:09 08:05 WBC 9.9 RBC 5.00 Hgb 15.0 Hct 44.7 MCV 89.4 MCH 30.0 MCHC 33.6 RDW 13.3 Plt Count 228 MPV 10.6 H Immature Gran % (Auto) 1.0 H Neut % (Auto) 70.7 Lymph % (Auto) 19.3 [place] % (Auto) 7.4 Eos % (Auto) 1.4 Baso % (Auto) 0.2 Lymph # (Auto) 1.92 [place] # (Auto) 0.7 H Eos # (Auto) 0.1 Baso # (Auto) 0.0 Abs Immat Gran (auto) 0.10 H Absolute Neuts (auto) 7.0 H Absolute Nucleated RBC 0.000 Nucleated RBC % 0.0 PT INR APTT 93.0 H Sodium 137 Potassium 3.9 Chloride 94 L Carbon Dioxide 32 H Anion Gap 11 BUN 41 H Creatinine 2.10 H Estim Creat Clear Calc 20 Estimated GFR 30 L Glucose 199 H Hemoglobin A1c Lactic Acid Calcium 9.1 Troponin I Procalcitonin Urine Color Yellow Urine Appearance Clear Urine pH 6.5 Ur Specific [place] 1.010 Urine Protein Negative Urine Glucose (UA) Negative Urine Ketones Negative Ur Blood (Man) Negative Urine Nitrate Negative Urine Bilirubin Negative Urine Urobilinogen 0.2 Ur Leukocyte Esterase Negative Leukocyte Esterase Rfl Urine RBC Urine WBC Ur Squamous Epith Cells Urine Bacteria Urine Casts
[2024-01-25 13:24] LABS: Cholesterol 177 mg/dL (0-200); HDL Direct 37 mg/dL; Triglycerides 122 mg/dL (<150)
[2024-01-25 13:35] LABS: LDL Cholesterol Direct 130 mg/dL
[2024-01-25] MEDS: ASPIRIN 81 MG ENTERIC TABLET PO (13:38)
[2024-01-25] MEDS: ATORVASTATIN 40 MG TABLET 80 MG PO (13:38)
--- NOTE | 2024-01-25 15:24 | ECHO_ITS ---
Patient Info Name: Vincent Wade Age: 88 years : 1935 Gender: Male Ht: 65 in Wt: 180 lbs BSA: 1.96 m2 HR: 82 bpm BP: 108 / 74 mmHg Heart Rhythm: Sinus Rhythm Technical Quality: Fair Exam Date: 01/25/2024 12:04 PM Exam Location: Echo Lab Patient Status: Inpatient Admit Date: 01/25/2024 Staff Ordering Physician: Renate Garcia PA-C Proof Reader: Janet Koehler RDCS Attending Provider: John Baig MD Referring Physician: Radha SHERMAN; Exam Type: CA echo dop color flow w con Study Info Indications - elevated BNP/ TROPs I50.20 - Unspecified systolic (congestive) heart failure Complete two-dimensional, color flow and Doppler transthoracic echocardiogram is performed. Summary 1. Technically difficult study with limited views. 2. Left ventricular chamber dimension is normal. 3. There is moderately increased left ventricular wall thickness. 4. Left ventricular systolic function is lower limits of normal, estimated at 50-55%. The septum appears hypokinetic. 5. Right ventricular systolic function is normal. 6. There is moderate aortic valve calcification. 7. There is moderate aortic valve stenosis with a peak velocity of 186.20 cm/s, mean gradient of 6 mmHg, and aortic valve area of 1.02 cm2. Left Ventricle Left ventricular chamber dimension is normal. Left ventricular systolic function is lower limits of normal, estimated at 50-55%. The septum appears hypokinetic. There is moderately increased left ventricular wall thickness. Right Ventricle Right ventricular chamber dimension is normal. Right ventricular systolic function is normal. Left Atria Left atrial chamber dimension is normal. Right Atria Right atrial chamber dimension is normal. Atrial Septum Intact interatrial septum visualized by color flow imaging. Aortic Valve The aortic valve is probable trileaflet. There is moderate aortic valve stenosis with a peak velocity of 186.20 cm/s, mean gradient of 6 mmHg, and aortic valve area of 1.02 cm2. There is trace aortic valve regurgitation. There is moderate aortic valve calcification. Pulmonic Valve The pulmonic valve is not well visualized. There is no pulmonic regurgitation. Mitral Valve There is trace mitral valve regurgitation. The mitral valve annulus is mildly calcified. Tricuspid Valve There is trace tricuspid valve regurgitation. Pericardium/Pleural There is no pericardial effusion. Inferior Vena Cava Normal inferior vena cava with >50% collapse upon inspiration consistent with normal right atrial pressure, 3 mmHg. Aorta The aortic root size at the sinus of Valsalva is normal. Left Ventricular Outflow Tract Name Value Normal LVOT 2D LVOT Diameter 2.00 cm LVOT Doppler LVOT Peak Gradient 2 mmHg LVOT Mean Gradient 1 mmHg LVOT VTI 10.85 cm LVOT VTI/AV VTI Ratio 0.33 LVOT Stroke Volume 33.93 ml LVOT CO 2.82 l/min LVOT CI 1.44 L/min/m2 Pulmonic Valve Name Value Normal PV Doppler PV Peak Gradient 8 mmHg Mitral Valve Name Value Normal MV Doppler MV Decel Nolan 767.47 cm/s2 MV PHT 0 s MV Area (PHT) 5.46 cm2 4.00-5.00 MV Diastolic Function MV E Peak Velocity 106.56 cm/s MV A Peak Velocity 0.78 cm/s MV E/A 135.99 MV Decel Time 0 s Tricuspid Valve Name Value Normal Estimated PAP/RSVP RA Pressure 3 mmHg <=5 Aorta Name Value Normal Ascending Aorta Ao Root Diameter (MM) 2.59 cm Ao Root Diam Index (MM) 1.32 cm/m2 Aortic Valve Name Value Normal AV Doppler AV Peak Velocity 186.20 cm/s AV Peak Gradient 14 mmHg AV Mean Gradient 6 mmHg AV VTI 33.35 cm AV Area (Cont Eq VTI) 1.02 cm2 >=3.00 AV Area (Cont Eq Nikolas) 1.21 cm2 AV Regurgitation 2D LVOT Area 3.13 cm2 Ventricles Name Value Normal LV Dimensions 2D/MM IVS Diastolic Thickness (2D) 1.17 cm 0.60-1.00 IVS Diastole Thickness (MM) 0.78 cm 0.60-1.00 LVID Diastole (2D) 4.74 cm 4.20-5.80 LVID Diastole (MM) 5.74 cm 4.20-5.80 LVIW Diastolic Thickness (2D) 0.99 cm 0.60-1.00 LVIW Diastolic Thickness (MM) 0.94 cm 0.60-1.00 LVID Systole (2D) 3.72 cm 2.50-4.00 LVID Systole (MM) 4.64 cm 2.50-4.00 LVOT Diameter 2.00 cm LV Mass (2D Cubed) 184.86 g 88.00-224.00 LV Mass Index (2D Cubed) 0.01 g/cm2 0.00-0.01 Relative Wall Thickness (2D) 0.42 LV Mass (MM Cubed) 188.55 g 88.00-224.00 LV Mass Index (MM Cubed) 0.01 g/cm2 0.00-0.01 Relative Wall Thickness (MM) 0.33 LV Fractional Shortening/Ejection Fraction 2D/MM LV Fractional Shortening (2D) 21 % 25-43 LV Fractional Shortening (MM) 19 % 25-43 LV EF (MM Teicholz) 39 % 52-72 LV EF (2D Teicholz) 44 % 52-72 LV Diastolic Volume (4C MOD) 59.51 ml LV EF (4C MOD) 48 % LV Diastolic Volume (2C MOD) 71.50 ml LV EF (2C MOD) 54 % LV Diastolic Volume (BP MOD) 68.00 ml 62.00-150.00 LV Diastolic Volume Index (BP MOD) 0.03 l/m2 0.03-0.07 LV Systolic Volume (BP MOD) 33.11 ml 21.00-61.00 LV Systolic Volume Index (BP MOD) 0.02 l/m2 0.01-0.03 LV EF (BP MOD) 51 % 52-72 LV Diastolic Length (4C) 7.36 cm LV Systolic Length (4C) 6.76 cm LV Stroke Volume (4C MOD) 28.52 ml Atria Name Value Normal LA Dimensions LA Dimension (MM) 4.35 cm 3.00-4.10 LA Volume (4C A-L) 34.27 ml LA Volume (BP A-L) 36.76 ml RA Dimensions RA Area (4C) 15.84 cm2 <=18.00 Report Signatures
[2024-01-25] MEDS: PERFLUTREN LIPID MICROSPHERES 1.5 ML VIAL DILUTED TO 10 ML TOTAL VOLUME IV PUSH (16:55)
--- NOTE | 2024-01-25 16:56 | IVDEFINITY ---
Prior to administration of IV Definity the patient was educated on the risks and benefits of the imaging enhancing agent including potential adverse side effects. The patient verbalized understanding. Allergies were verified. No exclusion criteria were identified and at least one of the following inclusion criteria were met: 1) physician request, 2) patient technically difficult to image (per the [place] [employer] guidelines of two or more segments not discernable within the apical view), or 3) questionable left ventricular function. ?
--- NOTE | 2024-01-25 17:22 | PC.NURSE ---
Patients significant other noted to be trying to pull patient up in bed on her own. Discussed with significant other that it is not safe for her or the patient and that I would get assistance to adjust patient.
[2024-01-25] MEDS: DOXYCYCLINE HYCLATE 100 MG TABLET PO (20:27)
[2024-01-25] MEDS: IPRATROPIUM 0.5 MG/ALBUTEROL SULFATE 2.5 MG AMPUL.NEB 3 ML INHALATION (23:06)
[2024-01-26] VITALS (21 sets, daily range): BP systolic 101–135; BP diastolic 50–66; PULSE 74–98; RESP 16–24; TEMP 36.4–36.9; O2SAT 90–98
[2024-01-26] MEDS: HEPARIN SOD/D5W 100 UNITS/ML 25,000 UNITS/250 ML BAG 14 UNITS IV CONT (04:40)
[2024-01-26 04:55] LABS: Partial Thromboplastin Time 90.8 Seconds (22.3-36.8)
[2024-01-26 06:39] LABS: Basophils Percent Auto 0.3 % (0.2-1.2); Eosinophils Absolute Auto 0.3 K/mm3 (0-0.3); Eosinophils Percent Auto 2.3 % (0-4.4); Hematocrit 46.1 % (42.0-52.0); Hemoglobin 15.1 g/dL (14.0-18.0); Immature Granulocyte Absolute 0.16 K/mm3 (0.00-0.031); Immature Granulocyte Percent A 1.5 % (0-0.5); Lymphocytes Absolute Auto 2.64 K/mm3 (0.9-3.2); Lymphocytes Percent Auto 24.1 % (18.3-44.2); Mean Corpuscular HGB Conc 32.8 g/dl (32-36); Mean Corpuscular Hemoglobin 29.7 pg (26-34); Mean Corpuscular Volume 90.7 fl (80-100); Mean Platelet Volume 11.3 fl (7.4-10.4); Monocytes Absolute Auto 0.6 K/mm3 (0.1-0.6); Monocytes Percent Auto 5.8 % (2.6-8.5); Neutrophils Absolute Auto 7.2 K/mm3 (1.3-6.7); Platelet Count Result 261 k/mm3 (150-375); Red Blood Count 5.08 M/mm3 (4.6-6.20); Red Cell Distribution Width 13.1 % (11.5-14.5); White Blood Count 10.9 K/mm3 (4.5-10.0)
[2024-01-26 06:48] LABS: Alanine Aminotransferase 30 U/L (6-50); Albumin Level 3.5 g/dL (3.5-5.1); Alkaline Phosphatase 109 U/L (38-126); Anion Gap 12 mmol/L (4-12); Aspartate Amino Transferase 26 U/L (17-59); Bilirubin,Total 1.1 mg/dL (0.2-1.3); Blood Urea Nitrogen 51 mg/dL (9-20); Calcium 8.8 mg/dL (8.4-10.2); Carbon Dioxide 32 mmol/L (22-30); Chloride 92 mmol/L (98-107); Creatine Kinase 91 U/L (55-170); Estimated CRCL calculation 17 ml/min; Estimated Glomerular Filt Rate 25; Glucose 210 mg/dL (65-110); Potassium 3.8 mmol/L (3.4-5.0); Sodium 136 mmol/L (137-145)
[2024-01-26] MEDS: IPRATROPIUM 0.5 MG/ALBUTEROL SULFATE 2.5 MG AMPUL.NEB 3 ML INHALATION ×3 (07:12→23:06)
[2024-01-26] MEDS: DOXYCYCLINE HYCLATE 100 MG TABLET PO ×2 (08:32→20:35)
[2024-01-26] MEDS: ASPIRIN 81 MG ENTERIC TABLET PO (08:32)
[2024-01-26] MEDS: ATORVASTATIN 40 MG TABLET 80 MG PO (08:32)
--- NOTE | 2024-01-26 09:50 | P.PNCA_ITS ---
Progress Note: A&P Assessment and Plan (1) CHF (congestive heart failure): Code(s): I50.9 - Heart failure, unspecified Status: Acute Assessment and Plan: This would be a new diagnosis for the patient. Echo with LVEF 50-55%. Will stop IV Lasix due to increasing SCr level. Clinically, he appears euvolemic now. (2) Non-ST elevation AK (NSTEMI): Code(s): I21.4 - Non-ST elevation (NSTEMI) myocardial infarction Status: Acute Assessment and Plan: He denies any chest pain, however initial troponin elevated at 2.270, which then downtrended. Possibly demand ischemia because of hypoxia and volume overload. However, cannot rule out underlying CAD. His EKG dose not show any acute ischemic changes. 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 * Had a discussion regarding cardiac catheterization with the patient and his w viral. Discussed indication for the catheterization, procedure details, risks vs benefits, alternative management options of medical therapy only. Discussed risk of contrast induced nephropathy given worsening renal function. After discussion with the patient and , they prefer not to undergo cardiac catheterization and opt for medical management, particularly since he is not having any chest pain or other anginal symptoms. * Completed Heparin therapy for 48 hours, will stop now. * Continue ASA and high intensity statin. (3) Acute hypoxic respiratory failure: Code(s): J96.01 - Acute respiratory failure with hypoxia Status: Acute Assessment and Plan: Secondary to CHF. Now resolved and on room air. (4) EUGENE (acute kidney injury): Code(s): N17.9 - Acute kidney failure, unspecified Status: Acute Assessment and Plan: SCr 1.9 on admission, increased to 2.50 now. Unclear what his baseline is. Stopping IV Lasix due to worsening renal function and clinically he appears euvolemic. Nephrology consulted. (5) Diabetes mellitus: Code(s): E11.9 - Type 2 diabetes mellitus without complications Status: Acute Assessment and Plan: Hgb A1c is 7.3, which is a new diagnosis for the patient. Management as per primary team. Subjective Date/time seen: 01/26/24 09:50 Interval history: Reason for visit: CHF, elevated troponins HPI: Vincent Wade is an 88 year old male with reportedly no cardiac history. He presents to the emergency department with complaints of cough and shortness of breath. He began feeling poorly around the middle of last week and went to urgent care where he was tested for influenza and COVID which were negative. According to the patient's he was prescribed a Z pack and prednisone but his symptoms persisted so she decided to bring him to the hospital for evaluation. He was hypoxic when he presented with SpO2 88%. He denies having any swelling, orthopnea, paroxysmal nocturnal dyspnea, chest pain, palpitations. He denies any history of chest pain. In the ED his workup has revealed leukocytosis with WBC 12.3, D-dimer of 1.64, ABG with P O2 of 7.45, creatinine of 1.9, lactic acid of 2.1, initial troponin 2.27, BNP of 12,000, respiratory panel is negative, CTA shows no pulmonary embolism, no pneumonia, and trace bilateral small pleural effusions. He has been started in a heparin drip and received IV furosemide. He is lying comfortably in bed at the time of my evaluation and does not have any active complaints. Date of service 01/24: He states he is feeling better. No shortness of breath. He is hard of hearing. Date of service 01/25: Feels well this morning. No chest pain, shortness of breath. Review of Systems Review of Systems: All systems reviewed & are unremarkable except as noted in HPI and below (HPI) Exam Const: General: no acute distress HENMT: Mouth: Yes moist mucous membranes Eyes: General: appearance normal, both eyes and all related structures Sc enrrique: sclerae normal Resp: Effort & Inspection: normal respiratory effort Cardio: Rate: regular rate Rhythm: regular rhythm Heart sounds: no murmurs Skin: General skin exam: normal color Neuro: Speech: normal speech Psych: Mental Status: mental status grossly normal Affect: normal affect Objective Data Vital Signs Vital Signs: Vital Signs - 24 hr 01/25/24 10:00 01/25/24 11:43 01/25/24 12:00 Temperature 36.7 C Pulse Rate 97 90 Respiratory Rate 24 H Blood Pressure 99/42 L Pulse Oximetry 92 91 Oxygen Delivery Room Air 01/25/24 12:00 01/25/24 12:00 01/25/24 16:00 Temperature 36.8 C Pulse Rate 92 85 Respiratory Rate 20 Blood Pressure 122/58 L Pulse Oximetry 91 Oxygen Delivery Room Air 01/25/24 14:00 01/25/24 16:00 01/25/24 16:00 Temperature Pulse Rate 91 88 Respiratory Rate Blood Pressure Pulse Oximetry Oxygen Delivery Room Air 01/25/24 18:00 01/25/24 20:00 01/25/24 20:09 Temperature 37.0 C Pulse Rate 95 95 95 Respiratory Rate 20 20 Blood Pressure 124/76 Pulse Oximetry 91 92 Oxygen Delivery Room Air 01/25/24 20:00 01/25/24 22:00 01/25/24 23:07 Temperature Pulse Rate 91 90 87 Respiratory Rate 20 Blood Pressure Pulse Oximetry Oxygen Delivery 01/25/24 23:00 01/25/24 23:14 01/25/24 23:48 Temperature 37.0 C Pulse Rate 89 63 Respiratory Rate 20 20 Blood Pressure 130/69 Pulse Oximetry 94 92 Oxygen Delivery Room Air 01/26/24 00:00 01/26/24 00:00 01/26/24 02:00 Temperature Pulse Rate 76 76 81 Respiratory Rate 20 Blood Pressure Pulse Oximetry 92 Oxygen Delivery Room Air 01/26/24 03:37 01/26/24 03:50 01/26/24 04:00 Temperature 36.7 C Pulse Rate 98 98 76 Respiratory Rate 20 20 Blood Pressure 119/65 Pulse Oximetry 90 90 Oxygen Delivery Room Air 01/26/24 06:00 01/26/24 07:12 01/26/24 07:12 Temperature Pulse Rate 80 82 Respiratory Rate 20 Blood Pressure Pulse Oximetry 90 Oxygen Delivery Room Air 01/26/24 07:20 01/26/24 07:54 01/26/24 08:00 Temperature 36.9 C Pulse Rate 74 83 Respiratory Rate 20 22 H Blood Pressure 135/64 Pulse Oximetry 98 Oxygen Delivery Room Air 01/26/24 08:00 Temperature Pulse Rate 86 Respiratory Rate Blood Pressure Pulse Oximetry Oxygen Delivery Intake/Output Intake/Output: Intake & Output 01/23/24 01/24/24 01/25/24 01/26/24 23:59 23:59 23:59 23:59 Intake Total 273.5 939.9 146.6 Output Total 1000 1800 200 Balance -726.5 -860.1 -53.4 Meds/Results Medications: Active Medications Generic Name Dose Route Start Last Admin Trade Name Freq PRN Reason Stop Dose Admin Albuterol/Ipratropium 3 ml 01/26/24 00:00 01/26/24 07:12 Ipratropium 0.5 Mg/Albuterol Sulfate 2.5 Mg Ampul.Neb 3 Ml INHALATION 3 ml Q8HRT JUAN A Administration Aspirin 81 mg 01/25/24 12:45 01/26/24 08:32 Aspirin 81 Mg Enteric Tablet PO 81 mg QAM JUAN A Administration Atorvastatin Calcium 80 mg 01/25/24 12:45 01/26/24 08:32 Atorvastatin 40 Mg Tablet PO 80 mg DAILY JUAN A Administration Dextrose 12.5 gm 01/24/24 12:21 Dextrose 50% 25 Gm/50 Ml Syringe IV PUSH PRN PRN Hypoglycemia Protocol Doxycycline Hyclate 100 mg 01/25/24 21:00 01/26/24 08:32 Doxycycline Hyclate 100 Mg Tablet PO 100 mg Q12HR JUAN A Administration Furosemide 40 mg 01/25/24 09:00 01/25/24 08:05 Furosemide Inj 40 Mg/4 Ml Vial IV PUSH 40 mg DAILY JUAN A Administration Glucagon 1 mg 01/24/24 12:21 Glucagon For Inj 1 Mg Vial IM PRN PRN Hypoglycemia Protocol Glucose 15 gm 01/24/24 12:21 Glucose Oral Gel 15 Gm Of Glucse In 37.5 Gm Tube PO PRN PRN Hypoglycemia Protocol Dextrose 1,000 mls @ 100 mls/hr 01/24/24 12:21 Dextrose 5% 1,000 Ml IVPB PRN PRN Hypoglycemia Protocol Radiology Results: ITS Impressions Chest X-Ray 01/24/24 10:23 IMPRESSION: 1. Mild atelectasis at the lung bases. Chest CTA 01/24/24 11:36 IMPRESSION: 1. No pulmonary embolus. Sensitivity is mildly decreased by motion artifact. 2. Trace right and small left pleural effusions. Renal Ultrasound 01/25/24 17:03 IMPRESSION: No hydronephrosis or renal calculi. Findings suggesting medical renal disease. Labs Labs: Laboratory Results - last 24 hr 01/25/24 01/25/24 01/26/24 08:05 13:55 04:07 WBC 10.9 H RBC 5.08 Hgb 15.1 Hct 46.1 MCV 90.7 MCH 29.7 MCHC 32.8 RDW 13.1 Plt Count 261 MPV 11.3 H Immature Gran % (Auto) 1.5 H Neut % (Auto) 66.0 Lymph % (Auto) 24.1 Mcpherson % (Auto) 5.8 Eos % (Auto) 2.3 Baso % (Auto) 0.3 Lymph # (Auto) 2.64 Mcpherson # (Auto) 0.6 Eos # (Auto) 0.3 Baso # (Auto) 0.0 Abs Immat Gran (auto) 0.16 H Absolute Neuts (auto) 7.2 H Absolute Nucleated RBC 0.000 Nucleated RBC % 0.0 APTT 72.0 H Sodium 137 136 L Potassium 3.9 3.8 Chloride 94 L 92 L Carbon Dioxide 32 H 32 H Anion Gap 11 12 BUN 41 H 51 H D Creatinine 2.10 H 2.50 H Estim Creat Clear Calc 20 17 Estimated GFR 30 L 25 L Glucose 199 H 210 H Calcium 9.1 8.8 Phosphorus 4.0 Magnesium 2.0 Total Bilirubin 1.1 AST 26 ALT 30 Alkaline Phosphatase 109 Total Creatine Kinase 91 Total Protein 7.0 Albumin 3.5 Triglycerides 122 Cholesterol 177 LDL Cholesterol Direct 130 HDL Direct 37 01/26/24 04:13 WBC RBC Hgb Hct MCV MCH MCHC RDW Plt Count MPV Immature Gran % (Auto) Neut % (Auto) Lymph % (Auto) Mcpherson % (Auto) Eos % (Auto) Baso % (Auto) Lymph # (Auto) Mcpherson # (Auto) Eos # (Auto) Baso # (Auto) Abs Immat Gran (auto) Absolute Neuts (auto) Absolute Nucleated RBC Nucleated RBC % APTT 90.8 H Sodium Potassium Chloride Carbon Dioxide Anion Gap BUN Creatinine Estim Creat Clear Calc Estimated GFR Glucose Calcium Phosphorus Magnesium Total Bilirubin AST ALT Alkaline Phosphatase Total Creatine Kinase Total Protein Albumin Triglycerides Cholesterol LDL Cholesterol Direct HDL Direct
--- NOTE | 2024-01-26 10:29 | P.PNIM_ITS ---
Progress Note: A&P Assessment and Plan (1) Diabetes mellitus: Code(s): E11.9 - Type 2 diabetes mellitus without complications Status: Acute (2) EUGENE (acute kidney injury): Code(s): N17.9 - Acute kidney failure, unspecified Status: Acute (3) Hyperglycemia: Code(s): R73.9 - Hyperglycemia, unspecified Status: Acute (4) CHF (congestive heart failure): Code(s): I50.9 - Heart failure, unspecified Status: Acute (5) Non-ST elevation AK (NSTEMI): Code(s): I21.4 - Non-ST elevation (NSTEMI) myocardial infarction Status: Acute (6) Acute hypoxic respiratory failure: Code(s): J96.01 - Acute respiratory failure with hypoxia Status: Acute Plan 88-year-old male presents to the hospital for shortness of breath. He states that the shortness of breath has increased over the last couple days. Per the the patient does not go to the doctor however she brought him into the emergency room due to him being short of breath. Non-ST elevation AK (NSTEMI): Code(s): I21.4 - Non-ST elevation (NSTEMI) myocardial infarction Status: Acute Assessment and Plan: Cardiology consulted Heparin drip per protocol Trend troponin, troponins trending down plan catheterization tomorrow CHF (congestive heart failure): Code(s): I50.9 - Heart failure, unspecified Status: Acute Assessment and Plan: Echocardiogram pending Heart healthy diet IV Lasix x2 Daily IV Lasix scheduled- but stopped due to EUGENE -nephrology consulted Acute hypoxic respiratory failure: Code(s): J96.01 - Acute respiratory failure with hypoxia Status: Acute Assessment and Plan: Secondary to 1 and 2 Telemetry monitoring now on room air Acute bacterial bronchitis Leukocytosis: Code(s): D72.829 - Elevated white blood cell count, unspecified Status: Acute Assessment and Plan: CT chest negative for pneumonia Blood cultures pending UA unremarkable Patient has cough with scant phlegm, worsening in past few more days days Suspecting acute bacterial bronchitis Patient also has scattered wheezing bilaterally Start doxycycline 100 mg q.12 hours p.o., Start DuoNeb scheduled Q 8 hours EUGENE versus CKD Elevated BUN creatinine 38/1.9,unknown baseline Urinalysis unremarkable Follow-up renal ultrasound Consult international affairs vice president Hyperglycemia: Code(s): R73.9 - Hyperglycemia, unspecified Status: Acute Assessment and Plan: Patient denies history of diabetes Hemoglobin A1c pending Lactic acidosis: Code(s): E87.20 - Acidosis, unspecified Status: Acute Assessment and Plan: No fluid bolus given per sepsis protocol due to patient being fluid overloaded No pulmonary infective process seen on CT UA pending Blood cultures pending No known source of infection Time Spent With Patient Time with patient: Greater than 35 minutes Subjective Date/time seen: 01/26/24 10:29 Interval history: Reason for visit: CHF, elevated troponins HPI: Vincent Wade is an 88 year old male with reportedly no cardiac history. He presents to the emergency department with complaints of cough and shortness of breath. He began feeling poorly around the middle of last week and went to urgent care where he was tested for influenza and COVID which were negative. According to the patient's he was prescribed a Z pack and prednisone but his symptoms persisted so she decided to bring him to the hospital for evaluation. He was hypoxic when he presented with SpO2 88%. He denies having any swelling, orthopnea, paroxysmal nocturnal dyspnea, chest pain, palpitations. He denies any history of chest pain. In the ED his workup has revealed leukocytosis with WBC 12.3, D-dimer of 1.64, ABG with P O2 of 7.45, creatinine of 1.9, lactic acid of 2.1, initial troponin 2.27, BNP of 12,000, respiratory panel is negative, CTA shows no pulmonary embolism, no pneumonia, and trace bilateral small pleural effusions. He has been started in a heparin drip and received IV furosemide. He is lying comfortably in bed at the time of my evalu ation and does not have any active complaints. 01/25- pt is seen and examined. Card is consulted and following. Pt really wants to go home but Cr/BUN still high. will move out of IMU and if Cr/BUN improves tomorrow- possible discharge Review of Systems Review of Systems: 12 systems were reviewed and are negativ e except for as per HPI. Exam Narrative: GENERAL: Pleasant, in no acute distress. Well-nourished. - EYES: EOMI. Anicteric. - HENT: Moist mucous membranes. - LUNGS: Scattered wheezing bilaterally - CARDIOVASCULAR: Regular rate and rhyth m. No murmur. No JVD. - ABDOMEN: Soft, non-tender and non-dist ended. No palpable masses. - EXTREMITIES: No edema. Peripheral puls es 2+. Non-tender. - NEUROLOGIC: No focal neurological defi cits. CN II-XII grossly intact. - PSYCHIATRIC: Awake, Alert and oriented x 3. Appropriate mood and affect. - SKIN: No rashes or lesions. Warm. - LYMPH: No cervical lymphadenopathy. Objective Data Vital Signs Vital Signs: Vital Signs - 24 hr 01/25/24 11:43 01/25/24 12:00 01/25/24 12:00 Temperature 98.0 F Pulse Rate 90 Respiratory Rate 24 H Blood Pressure 99/42 L Pulse Oximetry 92 91 Oxygen Delivery Room Air Room Air 01/25/24 12:00 01/25/24 16:00 01/25/24 14:00 Temperature 98.2 F Pulse Rate 92 85 91 Respiratory Rate 20 Blood Pressure 122/58 L Pulse Oximetry 91 Oxygen Delivery 01/25/24 16:00 01/25/24 16:00 01/25/24 18:00 Temperature Pulse Rate 88 95 Respiratory Rate Blood Pressure Pulse Oximetry Oxygen Delivery Room Air 01/25/24 20:00 01/25/24 20:09 01/25/24 20:00 Temperature 98.6 F Pulse Rate 95 95 91 Respiratory Rate 20 20 Blood Pressure 124/76 Pulse Oximetry 91 92 Oxygen Delivery Room Air 01/25/24 22:00 01/25/24 23:07 01/25/24 23:00 Temperature Pulse Rate 90 87 Respiratory Rate 20 Blood Pressure Pulse Oximetry 94 Oxygen Delivery Room Air 01/25/24 23:14 01/25/24 23:48 01/26/24 00:00 Temperature 98.6 F Pulse Rate 89 63 76 Respiratory Rate 20 20 Blood Pressure 130/69 Pulse Oximetry 92 Oxygen Delivery 01/26/24 00:00 01/26/24 02:00 01/26/24 03:37 Temperature 98.1 F Pulse Rate 76 81 98 Respiratory Rate 20 20 Blood Pressure 119/65 Pulse Oximetry 92 90 Oxygen Delivery Room Air 01/26/24 03:50 01/26/24 04:00 01/26/24 06:00 Temperature Pulse Rate 98 76 80 Respiratory Rate 20 Blood Pressure Pulse Oximetry 90 Oxygen Delivery Room Air 01/26/24 07:12 01/26/24 07:12 01/26/24 07:20 Temperature Pulse Rate 82 74 Respiratory Rate 20 20 Blood Pressure Pulse Oximetry 90 Oxygen Delivery Room Air 01/26/24 07:54 01/26/24 08:00 01/26/24 08:00 Temperature 98.5 F Pulse Rate 83 86 Respiratory Rate 22 H Blood Pressure 135/64 Pulse Oximetry 98 Oxygen Delivery Room Air Intake/Output Intake/Output: Intake & Output 01/23/24 01/24/24 01/25/24 01/26/24 23:59 23:59 23:59 23:59 Intake Total 273.5 939.9 146.6 Output Total 1000 1800 200 Balance -726.5 -860.1 -53.4 Meds/Results Medications: Active Medications Generic Name Dose Route Start Last Admin Trade Name Freq PRN Reason Stop Dose Admin Albuterol/Ipratropium 3 ml 01/26/24 00:00 01/26/24 07:12 Ipratropium 0.5 Mg/Albuterol Sulfate 2.5 Mg Ampul.Neb 3 Ml INHALATION 3 ml Q8HRT JUAN A Administration Aspirin 81 mg 01/25/24 12:45 01/26/24 08:32 Aspirin 81 Mg Enteric Tablet PO 81 mg QAM JUAN A Administration Atorvastatin Calcium 80 mg 01/25/24 12:45 01/26/24 08:32 Atorvastatin 40 Mg Tablet PO 80 mg DAILY JUAN A Administration Dextrose 12.5 gm 01/24/24 12:21 Dextrose 50% 25 Gm/50 Ml Syringe IV PUSH PRN PRN Hypoglycemia Protocol Doxycycline Hyclate 100 mg 01/25/24 21:00 01/26/24 08:32 Doxycycline Hyclate 100 Mg Tablet PO 100 mg Q12HR JUAN A Administration Glucagon 1 mg 01/24/24 12:21 Glucagon For Inj 1 Mg Vial IM PRN PRN Hypoglycemia Protocol Glucose 15 gm 01/24/24 12:21 Glucose Oral Gel 15 Gm Of Glucse In 37.5 Gm Tube PO PRN PRN Hypoglycemia Protocol Dextrose 1,000 mls @ 100 mls/hr 01/24/24 12:21 Dextrose 5% 1,000 Ml IVPB PRN PRN Hypoglycemia Protocol Radiology Results: ITS Impressions Chest X-Ray 01/24/24 10:23 IMPRESSION: 1. Mild atelectasis at the lung bases. Chest CTA 01/24/24 11:36 IMPRESSION: 1. No pulmonary embolus. Sensitivity is mildly decreased by motion artifact. 2. Trace right and small left pleural effusions. Renal Ultrasound 01/25/24 17:03 IMPRESSION: No hydronephrosis or renal calculi. Findings suggesting medical renal disease. Labs Labs: Laboratory Results - last 24 hr 01/25/24 01/25/24 01/26/24 08:05 13:55 04:07 WBC 10.9 H RBC 5.08 Hgb 15.1 Hct 46.1 MCV 90.7 MCH 29.7 MCHC 32.8 RDW 13.1 Plt Count 261 MPV 11.3 H Immature Gran % (Auto) 1.5 H Neut % (Auto) 66.0 Lymph % (Auto) 24.1 [place] % (Auto) 5.8 Eos % (Auto) 2.3 Baso % (Auto) 0.3 Lymph # (Auto) 2.64 [place] # (Auto) 0.6 Eos # (Auto) 0.3 Baso # (Auto) 0.0 Abs Immat Gran (auto) 0.16 H Absolute Neuts (auto) 7.2 H Absolute Nucleated RBC 0.000 Nucleated RBC % 0.0 APTT 72.0 H Sodium 137 136 L Potassium 3.9 3.8 Chloride 94 L 92 L Carbon Dioxide 32 H 32 H Anion Gap 11 12 BUN 41 H 51 H D Creatinine 2.10 H 2.50 H Estim Creat Clear Calc 20 17 Estimated GFR 30 L 25 L Glucose 199 H 210 H Calcium 9.1 8.8 Phosphorus 4.0 Magnesium 2.0 Total Bilirubin 1.1 AST 26 ALT 30 Alkaline Phosphatase 109 Total Creatine Kinase 91 Total Protein 7.0 Albumin 3.5 Triglycerides 122 Cholesterol 177 LDL Cholesterol Direct 130 HDL Direct 37 01/26/24 04:13 WBC RBC Hgb Hct MCV MCH MCHC RDW Plt Count MPV Immature Gran % (Auto) Neut % (Auto) Lymph % (Auto) [place] % (Auto) Eos % (Auto) Baso % (Auto) Lymph # (Auto) [place] # (Auto) Eos # (Auto) Baso # (Auto) Abs Immat Gran (auto) Absolute Neuts (auto) Absolute Nucleated RBC Nucleated RBC % APTT 90.8 H Sodium Potassium Chloride Carbon Dioxide Anion Gap BUN Creatinine Estim Creat Clear Calc Estimated GFR Glucose Calcium Phosphorus Magnesium Total Bilirubin AST ALT Alkaline Phosphatase Total Creatine Kinase Total Protein Albumin Triglycerides Cholesterol LDL Cholesterol Direct HDL Direct Quality VTE Prophylaxis VTE prophylaxis: mechanical ordered and pharmacologic ordered
[2024-01-26 10:42] LABS: Creatinine Urine 175.3 mg/dL; Total Protein Urine Random 43 mg/dL; Ur Ttl Prot Creatinine Ratio 0.25 mg/mg (0-0.20)
[2024-01-26 10:42] LABS: Total Protein Urine Random 43 mg/dL; Urea Random Urine 1030 MG/DL
[2024-01-26 10:43] LABS: Sodium Urine Random 42 meq/L
[2024-01-26 11:16] LABS: Eosinophil Urine None Seen % (None Seen); Urine Eos QC 2nd Tech Confirmed
--- NOTE | 2024-01-26 12:24 | P.PNNP_ITS ---
Progress Note: A&P Assessment and Plan (1) Chronic kidney disease, stage 3: Code(s): N18.30 - Chronic kidney disease, stage 3 unspecified Status: Chronic Assessment and Plan: * baseline creatinine was running ~ 1.3 - 1.6mg/dl since 2019 * last outpatient labs done in August 2022 = 1.44mg/dl * Subjective Date/time seen: 01/26/24 12:24 Interval history: Follow-up for elevated creatinine/renal insufficiency. Objective Data Vital Signs Vital Signs: Vital Signs Temp Pulse Resp BP Pulse Ox O2 Del Method 01/26/24 12:00 93 Room Air 01/26/24 11:48 97.7 F 91 24 H 101/50 L 92 01/26/24 10:00 91 01/26/24 08:00 86 01/26/24 08:00 Room Air 01/26/24 07:54 98.5 F 83 22 H 135/64 98 01/26/24 07:20 74 20 01/26/24 07:12 90 Room Air 01/26/24 07:12 82 20 01/26/24 06:00 80 01/26/24 04:00 76 01/26/24 03:50 98 20 90 Room Air 01/26/24 03:37 98.1 F 98 20 119/65 90 01/26/24 02:00 81 01/26/24 00:00 76 20 92 Room Air 01/26/24 00:00 76 01/25/24 23:48 98.6 F 63 20 130/69 92 01/25/24 23:14 89 20 01/25/24 23:00 94 Room Air 01/25/24 23:07 87 20 01/25/24 22:00 90 01/25/24 20:00 91 01/25/24 20:09 98.6 F 95 20 124/76 92 01/25/24 20:00 95 20 91 Room Air 01/25/24 18:00 95 01/25/24 16:00 Room Air 01/25/24 16:00 88 01/25/24 16:00 98.2 F 85 20 122/58 L 91 Intake/Output Intake/Output: Intake & Output 01/23/24 01/24/24 01/25/24 01/26/24 23:59 23:59 23:59 23:59 Intake Total 273.5 939.9 764.8 Output Total 1000 1800 400 Balance -726.5 -860.1 364.8 Meds/Results Medications: Active Medications Generic Name Dose Route Start Last Admin Trade Name Redq PRN Reason Stop Dose Admin Albuterol/Ipratropium 3 ml 01/26/24 00:00 01/26/24 07:12 Ipratropium 0.5 Mg/Albuterol Sulfate 2.5 Mg Ampul.Neb 3 Ml INHALATION 3 ml Q8HRT JUAN A Administration Aspirin 81 mg 01/25/24 12:45 01/26/24 08:32 Aspirin 81 Mg Enteric Tablet PO 81 mg QAM JUAN A Administration Atorvastatin Calcium 80 mg 01/25/24 12:45 01/26/24 08:32 Atorvastatin 40 Mg Tablet PO 80 mg DAILY JUAN A Administration Dextrose 12.5 gm 01/24/24 12:21 Dextrose 50% 25 Gm/50 Ml Syringe IV PUSH PRN PRN Hypoglycemia Protocol Doxycycline Hyclate 100 mg 01/25/24 21:00 01/26/24 08:32 Doxycycline Hyclate 100 Mg Tablet PO 100 mg Q12HR JUAN A Administration Glucagon 1 mg 01/24/24 12:21 Glucagon For Inj 1 Mg Vial IM PRN PRN Hypoglycemia Protocol Glucose 15 gm 01/24/24 12:21 Glucose Oral Gel 15 Gm Of Glucse In 37.5 Gm Tube PO PRN PRN Hypoglycemia Protocol Dextrose 1,000 mls @ 100 mls/hr 01/24/24 12:21 Dextrose 5% 1,000 Ml IVPB PRN PRN Hypoglycemia Protocol Radiology Results: ITS Impressions Chest X-Ray 01/24/24 10:23 IMPRESSION: 1. Mild atelectasis at the lung bases. Chest CTA 01/24/24 11:36 IMPRESSION: 1. No pulmonary embolus. Sensitivity is mildly decreased by motion artifact. 2. Trace right and small left pleural effusions. Renal Ultrasound 01/25/24 17:03 IMPRESSION: No hydronephrosis or renal calculi. Findings suggesting medical renal disease. Labs Labs: Laboratory Tests 01/26/24 04:07 01/26/24 04:07 Calcium 8.8 Phosphorus 4.0 Magnesium 2.0 Total Bilirubin 1.1 AST 26 ALT 30 Alkaline Phosphatase 109 Total Creatine Kinase 91 Total Protein 7.0 Albumin 3.5 Microbiology 01/24/24 09:56 Blood Blood Culture - Preliminary 01/24/24 09:17 Blood Blood Culture - Preliminary
--- NOTE | 2024-01-26 17:40 | PC.NURSE ---
Report given to Len PT transferred via bed to Med Surg room 319. PT saline locked, on room air. Updated [place] on patient status.
[2024-01-27] VITALS (7 sets, daily range): BP systolic 128–137; BP diastolic 52–64; PULSE 73–86; RESP 16–20; TEMP 36.2–36.4; O2SAT 93–100
[2024-01-27 06:48] LABS: Basophils Percent Auto 0.3 % (0.2-1.2); Eosinophils Absolute Auto 0.3 K/mm3 (0-0.3); Eosinophils Percent Auto 2.2 % (0-4.4); Hematocrit 46.9 % (42.0-52.0); Hemoglobin 15.5 g/dL (14.0-18.0); Immature Granulocyte Absolute 0.09 K/mm3 (0.00-0.031); Immature Granulocyte Percent A 0.8 % (0-0.5); Lymphocytes Absolute Auto 2.31 K/mm3 (0.9-3.2); Lymphocytes Percent Auto 19.8 % (18.3-44.2); Mean Corpuscular Volume 90.9 fl (80-100); Mean Platelet Volume 10.8 fl (7.4-10.4); Monocytes Absolute Auto 0.7 K/mm3 (0.1-0.6); Monocytes Percent Auto 5.7 % (2.6-8.5); Neutrophils Absolute Auto 8.3 K/mm3 (1.3-6.7); Neutrophils Percent Auto 71.2 % (45.5-73.1); Platelet Count Result 251 k/mm3 (150-375); Red Blood Count 5.16 M/mm3 (4.6-6.20); Red Cell Distribution Width 13.2 % (11.5-14.5); White Blood Count 11.7 K/mm3 (4.5-10.0)
[2024-01-27 07:00] LABS: Partial Thromboplastin Time 25.5 Seconds (22.3-36.8)
[2024-01-27 07:06] LABS: Alanine Aminotransferase 25 U/L (6-50); Albumin Level 3.9 g/dL (3.5-5.1); Alkaline Phosphatase 104 U/L (38-126); Anion Gap 10 mmol/L (4-12); Aspartate Amino Transferase 26 U/L (17-59); Blood Urea Nitrogen 55 mg/dL (9-20); Calcium 8.9 mg/dL (8.4-10.2); Carbon Dioxide 33 mmol/L (22-30); Chloride 93 mmol/L (98-107); Estimated CRCL calculation 16 ml/min; Estimated Glomerular Filt Rate 23; Glucose 180 mg/dL (65-110); Magnesium 2.1 mg/dL (1.6-2.3); Potassium 3.8 mmol/L (3.4-5.0); Sodium 136 mmol/L (137-145)
[2024-01-27] MEDS: IPRATROPIUM 0.5 MG/ALBUTEROL SULFATE 2.5 MG AMPUL.NEB 3 ML INHALATION (07:25)
[2024-01-27] MEDS: DOXYCYCLINE HYCLATE 100 MG TABLET PO (08:35)
[2024-01-27] MEDS: ATORVASTATIN 40 MG TABLET 80 MG PO (08:35)
[2024-01-27] MEDS: ASPIRIN 81 MG ENTERIC TABLET PO (08:35)
--- NOTE | 2024-01-27 14:58 | PM.DS ---
DS: Admitting Diagnosis Discharge Date 01/26 Admitting Diagnosis chest pain DS: Discharge Diagnosis Discharge Diagnosis (1) Diabetes mellitus: Code(s): E11.9 - Type 2 diabetes mellitus without complications Status: Acute (2) EUGENE (acute kidney injury): Code(s): N17.9 - Acute kidney failure, unspecified Status: Acute (3) Hyperglycemia: Code(s): R73.9 - Hyperglycemia, unspecified Status: Acute (4) CHF (congestive heart failure): Code(s): I50.9 - Heart failure, unspecified Status: Acute (5) Non-ST elevation AR (NSTEMI): Code(s): I21.4 - Non-ST elevation (NSTEMI) myocardial infarction Status: Acute (6) Acute hypoxic respiratory failure: Code(s): J96.01 - Acute respiratory failure with hypoxia Status: Acute DS: Summary Hospital Course Hospital Course: 88-year-old male presents to the hospital for shortness of breath. He states that the shortness of breath has increased over the last couple days. Per the the patient does not go to the doctor however she brought him into the emergency room due to him being short of breath. # Non-ST elevation AR (NSTEMI): Cardiology consulted He denies any chest pain, however initial troponin elevated at 2.270, which then downtrended. Possibly demand ischemia because of hypoxia and volume overload. However, cannot rule out underlying CAD. His EKG dose not show any acute ischemic changes. 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 -Completed Heparin therapy for 48 hours - Continue ASA and high intensity statin. # CHF (congestive heart failure): his would be a new diagnosis for the patient. Echo with LVEF 50-55%. Will stop IV Lasix due to increasing SCr level. Clinically, he appears euvolemic now. Echocardiogram - EF 50-55% IV Lasix x2 but stopped due to EUGENE -nephrology consulted and was following # Acute hypoxic respiratory failure: Secondary to 1 and 2 Telemetry monitoring now on room air resolved Acute bacterial bronchitis CT chest negative for pneumonia Blood cultures negative UA unremarkable Patient has cough with scant phlegm Suspecting acute bacterial bronchitis Patient also has scattered wheezing bilaterally on doxycycline 100 mg q.12 hours p.o- started on 01/24 9 pm- will need 10 more doses- 5 more full days Start DuoNeb scheduled Q 8 hours EUGENE versus CKD Elevated BUN creatinine 38/1.9,unknown baseline - suspect some CKD baseline Urinalysis unremarkable Follow-up renal ultrasound Consult government property inspector - will need a close f/u outpt Pt creatinine is still elevated. Diuretics were held. PLan was to keep him another day and repeat kidney function tomorrow to see if any improvement. PT absolutely doesnot want to stay and wants to go home. Discussed in great details that it is it is prudent to monitor for kidneys and ensure that kidney function IS indeed improving before sending pt home. He is aware taht if he goes home, he boo have to have a close lab repeat and if functions is not any better- it migth be recommended for him to come back to the hospital. He will need to establish and follow with both cardiology and nephrology to ensure optimal treatment is established for both as he is not on optiized treatment now due to his decreased kidney function. Pt and his both states understanding of risks of being discharged and ensure me that they will follwo up with labs repeat and nephrology alexnadra within a week, cardiology alexandra within Time Spent with Patient Time attestation: Total time spent providing and/or coordinating discharge services: Exam Narrative: GENERAL: Pleasant, in no acute distress. Well-nourished. - EYES: EOMI. Anicteric. - HENT: Moist mucous membranes. - LUNGS: Scattered wheezing bilaterally - CARDIOVASCULAR: Regular rate and rhythm. No murmur. No JVD. - ABDOMEN: Soft, non-tender and non-distended. No palpable masses. - EXTREMITIES: No edema. Peripheral pulses 2+. Non-tender. - NEUROLOGIC: No focal neurological deficits. CN II-XII grossly intact. - PSYCHIATRIC: Awake, Alert and oriented x 3. Appropriate mood and affect. - SKIN: No rashes or lesions. Warm. - LYMPH: No cervical lymphadenopathy. Const: General: comfortable DS: Data Data Completed and Pending Completed studies during hospitalization: renal ultrasound Labs on day of discharge: Labs from last 24 hours 01/27/24 06:25 WBC 11.7 H RBC 5.16 Hgb 15.5 Hct 46.9 MCV 90.9 MCH 30.0 MCHC 33.0 RDW 13.2 Plt Count 251 MPV 10.8 H Immature Gran % (Auto) 0.8 H Neut % (Auto) 71.2 Lymph % (Auto) 19.8 [place] % (Auto) 5.7 Eos % (Auto) 2.2 Baso % (Auto) 0.3 Lymph # (Auto) 2.31 [place] # (Auto) 0.7 H Eos # (Auto) 0.3 Baso # (Auto) 0.0 Abs Immat Gran (auto) 0.09 H Absolute Neuts (auto) 8.3 H Absolute Nucleated RBC 0.000 Nucleated RBC % 0.0 APTT 25.5 Sodium 136 L Potassium 3.8 Chloride 93 L Carbon Dioxide 33 H Anion Gap 10 BUN 55 H Creatinine 2.60 H Estim Creat Clear Calc 16 Estimated GFR 23 L Glucose 180 H Calcium 8.9 Phosphorus 5.0 H Magnesium 2.1 Total Bilirubin 1.0 AST 26 ALT 25 Alkaline Phosphatase 104 Total Protein 7.0 Albumin 3.9 Preliminary micro results at discharge 01/24/24 09:56 Blood Culture - Preliminary Blood 01/24/24 09:17 Blood Culture - Preliminary Blood Discharge Plan Discharge Consulting providers: Sal Irving; Denton Laureano Discharging Clinician: Dee Ellison Patient Disposition: Home, Self-Care Activity: july shower Diet: as tolerated and diabetic Discharge Instructions: you were admitted for chest pain. Cardiology saw you you were diagnosed with heart failure which is a new diagnoses for you. Due to your worsen kideny function, we coud nto start you on optimum theraoy for heart faily- oyu will have to follow up with cardiology within 1-2 weeks after discharge. We will provide clinic number- call right away and get an alexandra. Cardiology discussed cardiac cath with you. Had a discussion regarding cardiac catheterization with the patient and his . Discussed indication for the catheterization, procedure details, risks vs benefits, alternative management options of medical therapy only. Discussed risk of contrast induced nephropathy given worsening renal function. After discussion with the patient and , they prefer not to undergo cardiac catheterization and opt for medical management, particularly since he is not having any chest pain or other anginal symptoms. Cardiology recommend that you take Continue 81 mg of aspirin and high intensity statin (i will send you a script) as for your kidney, your creatinine was still elevated on 01/26. Diuretics were held. PLan was to keep you another day and repeat kidney function tomorrow, 01/27 to see if any improvement. We discussed in great details that it is prudent to monitor for kidneys and ensure that kidney function IS indeed improving before sending you home. Reminding you, that if you go home,you will have to repeat kidney function lab test and if functions is not any better- it might be recommended for you to come back to the hospital. You will need to establish and follow with both cardiology and nephrology to ensure optimal treatment is established for both as you are not on optimized treatment now due to his decreased kidney function. The discussion took place with pt and the and both aware of recommendations to stay in the hospital but pt chose to be discharge with a close lab f/u and nephrology alexandra. If you have chest pain and/or shortness of breath and/or any new symptoms, please return to er right away for further evaluation. You were given doxy for bronchitis- i will send 5 more days for you to complete the treatment. Patient Instructions: Antibiotic Form Stand Alone Forms: General Discharge Information Follow-up/Referrals: Denton Laureano MD [Physician] - 1 Week Gabriela Nance MD [Physician] - 2 Weeks Discharge Medications: New atorvastatin 40 mg Tablet 80 mg PO DAILY Qty: 90 0RF aspirin 81 mg Tablet,Delayed Release (Dr/Ec) 81 mg PO QAM Qty: 90 0RF doxycycline hyclate 100 mg Tablet 100 mg PO Q12HR Qty: 11 0RF guaifenesin [Mucinex] 600 mg tablet extended release 12hr 600 mg PO Q12H PRN (Reason: cough) Qty: 60 0RF Date of admission: 01/25/24 09:08 Primary Care Provider: Krishna Conti Admitting Provider: John Baig Attending physician on admission: John Baig Condition: Stable Quality VTE Prophylaxis VTE prophylaxis: mechanical ordered and pharmacologic ordered Hospitalist MIPS Heart Failure (Exclusion) Patient has history of Heart Transplant or Left Ventricular Assistive Device?: No IF YES, STOP HERE Heart Failure (Qualifier) Patient has current or prior documentation of LVEF less than or equal to 40%, or mod/servere depressed LVSF?: No IF NO, STOP HERE
== END 2024-01-27 16:18 | disposition home or self-care (01) | DRG 280 ==
LOC: ANHED 14:28 → ANHIMU 15:17 → ANH3MEDSUR 01-26 17:27
PROVIDERS: Hospitalist; Internal Medicine; Internal Medicine Nephrology; Nurse Practitioner Gerontology; Student in an Organized Health Care Education/Training Program; Admitting Provider Internal Medicine; Emergency Provider Physician Assistant; PCP Emergency Medicine; Visit Provider Nurse Practitioner
DX: I21.A1 Myocardial infarction type 2 (principal); J96.01 Acute respiratory failure with hypoxia; E87.20 Acidosis, unspecified; N17.9 Acute kidney failure, unspecified; I50.9 Heart failure, unspecified; D72.829 Elevated white blood cell count, unspecified; E11.65 Type 2 diabetes mellitus with hyperglycemia; H91.90 Unspecified hearing loss, unspecified ear; J20.9 Acute bronchitis, unspecified; N18.30 Chronic kidney disease, stage 3 unspecified; Z20.822 Contact with and (suspected) exposure to COVID-19; Z87.891 Personal history of nicotine dependence; Z88.0 Allergy status to penicillin
CPT/HCPCS: 36415; 36600; 71046; 71275; 76775; 80048; 80053; 80061; 81001; 81003; 81050; 82550; 82570; 82805; 83036; 83605; 83735; 83880; 84100; 84145; 84156; 84300; 84484; 84540; 85018; 85025; 85380; 85610; 85730; 85999; 87040; 87637; 93005; 93306; 94640; 96365; 96366; 96375; 96376; 99285; A9270; C8929; G0378; J1644; J1940; Q9957; Q9967

== ENCOUNTER 2024-01-29 09:51 | Outpatient (CLI) | payer MEDICARE, SELFPAY ==
[2024-01-29 10:22] LABS: Hematocrit 45.9 % (42.0-52.0); Hemoglobin 15.1 g/dL (14.0-18.0); Mean Corpuscular HGB Conc 32.9 g/dl (32-36); Mean Corpuscular Hemoglobin 29.7 pg (26-34); Mean Corpuscular Volume 90.4 fl (80-100); Mean Platelet Volume 10.5 fl (7.4-10.4); Platelet Count Result 279 k/mm3 (150-375); Red Blood Count 5.08 M/mm3 (4.6-6.20); Red Cell Distribution Width 13.2 % (11.5-14.5); White Blood Count 11.5 K/mm3 (4.5-10.0)
[2024-01-29 10:36] LABS: Alanine Aminotransferase 33 U/L (6-50); Albumin Level 3.8 g/dL (3.5-5.1); Alkaline Phosphatase 96 U/L (38-126); Anion Gap 8 mmol/L (4-12); Aspartate Amino Transferase 53 U/L (17-59); Bilirubin,Total 1.2 mg/dL (0.2-1.3); Blood Urea Nitrogen 50 mg/dL (9-20); Calcium 8.6 mg/dL (8.4-10.2); Carbon Dioxide 30 mmol/L (22-30); Chloride 97 mmol/L (98-107); Estimated Glomerular Filt Rate 25; Glucose 324 mg/dL (65-110); Potassium 4.2 mmol/L (3.4-5.0); Sodium 135 mmol/L (137-145)
== END 2024-01-29 09:52 | disposition home or self-care (01) ==
PROVIDERS: PCP Emergency Medicine; Visit Provider Nurse Practitioner
DX: J96.01 Acute respiratory failure with hypoxia (principal); I50.9 Heart failure, unspecified; N18.30 Chronic kidney disease, stage 3 unspecified; D72.829 Elevated white blood cell count, unspecified; M17.9 Osteoarthritis of knee, unspecified
CPT/HCPCS: 36415; 80053; 85027

== ENCOUNTER 2024-03-29 15:00 | Outpatient (CLI) | payer MEDICARE, SELFPAY ==
[2024-03-29 15:53] LABS: Albumin Level 3.7 g/dL (3.5-5.1); Anion Gap 3 mmol/L (4-12); Blood Urea Nitrogen 27 mg/dL (9-20); Calcium 8.8 mg/dL (8.4-10.2); Carbon Dioxide 30 mmol/L (22-30); Chloride 106 mmol/L (98-107); Estimated Glomerular Filt Rate 36; Glucose 214 mg/dL (65-110); Phosphorus 2.8 mg/dL (2.5-4.5); Potassium 3.9 mmol/L (3.4-5.0); Sodium 139 mmol/L (137-145)
== END 2024-03-29 15:01 | disposition home or self-care (01) ==
PROVIDERS: PCP Emergency Medicine; Visit Provider Internal Medicine Nephrology
DX: N18.4 Chronic kidney disease, stage 4 (severe) (principal)
CPT/HCPCS: 36415; 80069

== ENCOUNTER 2024-04-27 12:25 | Outpatient (RCR) | payer MEDICARE, SELFPAY | END 2024-07-17 09:26 | disposition home or self-care (01) | LOC: ANHDMC 12:25 | PROVIDERS: PCP Emergency Medicine; Visit Provider Emergency Medicine | DX: E13.649 Other specified diabetes mellitus with hypoglycemia without coma (principal); Z71.3 Dietary counseling and surveillance; Z71.89 Other specified counseling | CPT/HCPCS: G0108 ==

== ENCOUNTER 2024-05-02 13:27 | Inpatient (IN) | payer MEDICARE, SELFPAY ==
[2024-05-02] VITALS (17 sets, daily range): BP systolic 111–141; BP diastolic 52–87; PULSE 90–106; RESP 14–22; TEMP 36.4–36.6; O2SAT 88–100; BMI 29.0
--- NOTE | ~2024-05-02 | XR_ITS ---
EXAMINATION: XR chest 1V portable DATE: 05/05/2024 08:50 INDICATION: Hypoxia. TECHNIQUE: A single frontal view of the chest was obtained. COMPARISON: Chest 2 views 05/03/2024, chest CT 05/02/2024 FINDINGS: There are small pleural effusions. There is mild atelectasis in right midlung zone. No pneu monia or pneumothorax. The heart size is normal. There are changes of vertebroplasty at one level. IMPRESSION: 1. Small pleural effusions. Reviewed, dictated and finalized at location A. [employer] SALES IMPRESSION: 1. Small pleural effusions.
--- NOTE | ~2024-05-02 | CT_ITS ---
EXAMINATION: CTA chest PE protocol DATE: 05/02/2024 15:23 INDICATION: Hypoxia. TECHNIQUE: Computed tomography angiography (CTA) of the chest was performed with 100 mL Omnipaque-350 intravenous contrast timed to evaluate the pulmonary arteries. Coronal maximum intensity projection 3D-reconstructions were created by the technologist. Automated exposure control and iterative reconst ruction technique were employed. The dose-length product was 406.87 mGy-cm. COMPARISON: Chest CT 01/24/2024 FINDINGS: There is mild emphysema. A calcified right lung nodule and calcified mediastinal lymph node s are consistent with old granulomatous disease. There is smooth septal thickening in the lungs, cons istent with pulmonary edema. There are moderate-sized loculated pleural effusions. There is mild atel ectasis bilaterally. Cardiomegaly is noted. 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 There are coronary artery calcifications. No pericardial effusion . Aortic atherosclerosis is noted. There are gallstones in the gallbladder, which is normal in size. There is cortical thinning of the kidneys. Calcifications in the spleen are consistent with old granu lomatous disease. There is no pulmonary embolus. There is severe cervical spondylosis. There is chron ic height loss of multiple vertebral body. There are changes of vertebroplasty at T11. IMPRESSION: 1. No pulmonary embolus. Sensitivity is moderately decreased by motion artifact. 2. Mild pulmonary edema. 3. Mild emphysema. 4. Moderate-sized bilateral loculated pleural effusions. Reviewed, dictated and finalized at location A. LE [address] SQL DEVELOPER IMPRESSION: 1. No pulmonary embolus. Sensitivity is moderately decreased by motion artifact . 2. Mild pulmonary edema. 3. Mild emphysema. 4. Moderate-sized bilateral loculated pleural effusions.
--- NOTE | ~2024-05-02 | XR_ITS ---
EXAMINATION: XR chest 2V DATE: 05/03/2024 12:10 INDICATION: Pleural effusion TECHNIQUE: frontal and lateral views of the chest were obtained. COMPARISON: Chest radiograph and CT dated 05/02/2024 FINDINGS: Opacities in the bilateral with dependent lower lung zones with blunting at costophrenic angles and p osterior sulci consistent with persistent small bilateral pleural effusions with associated atelectas is and/or pneumonia. No pneumothorax. Cardiomegaly. Chronic T12 compression fracture with prior verte broplasty. IMPRESSION: 1. Persistent small bilateral pleural effusions with associated atelectasis and/or pneumonia in the d ependent lung zones. 2. Cardiomegaly. Reviewed, dictated and finalized at location A. CENTER ADMINISTRATOR IMPRESSION: 1. Persistent small bilateral pleural effusions with associated atelectasis and /or pneumonia in the dependent lung zones. 2. Cardiomegaly.
--- NOTE | ~2024-05-02 | XR_ITS ---
EXAMINATION: XR chest 1V portable DATE: 05/02/2024 14:02 INDICATION: Cough. Hypoxia. TECHNIQUE: A single frontal view of the chest was obtained on 2 radiographs. COMPARISON: Chest 2 views 01/24/2024, chest CT 01/24/2024 FINDINGS: There are interstitial opacities and lucencies in the lungs, consistent with emphysema. The re are airspace opacities in right mid and lower lung zones and left lower lung zone. There is a smal l right pleural effusion. No pneumothorax. Cardiomegaly is noted. There are changes of vertebroplasty at one level. IMPRESSION: 1. Worsened airspace opacities in right mid and lower lung zones and left lower lung zone, consistent with pneumonia. 2. Emphysema. 3. Worsened small right pleural effusion 4. Cardiomegaly. Reviewed, dictated and finalized at location A. ER HEAD
--- NOTE | ~2024-05-02 | US_ITS ---
EXAMINATION: US renal BI DATE: 05/05/2024 08:12 INDICATION: Acute on chronic kidney disease. TECHNIQUE: Multiple ultrasound grayscale images of the kidneys were obtained. COMPARISON: Ultrasound 01/25/2024, chest CT 05/02/2024 FINDINGS: The right kidney measures 10.4 x 5.9 x 4.8 cm. The left kidney measures 9.4 x 3.9 x 4.8 cm. The kidne ys demonstrate normal parenchymal echogenicity. There is cortical thinning of the kidneys. There is n o hydronephrosis. The bladder is normal. IMPRESSION: 1. Cortical thinning of the kidneys. No hydronephrosis. Reviewed, dictated and finalized at location A. ESS DEVELOPMENT ASSOCIATE
--- NOTE | 2024-05-02 13:28 | ECG_ITS ---
Test Date: 2024-05-02 13:34:00 Measurements Intervals [place] Rate: 104 P: 53 VT: 226 QRS: 83 QRSD: 138 T: -48 QT: 349 QTc: 461 Interpretive Statements SINUS TACHYCARDIA WITH FIRST DEGREE AV BLOCK WITH OCCASIONAL VENTRICULAR PREMATURE COMPLEXES POSSIBLE LEFT ATRIAL ENLARGEMENT RIGHT BUNDLE BRANCH BLOCK MINIMAL Q WAVES- INFERIOR LEADS ANTEROSEPTAL INFARCT, AGE INDETERMINATE BORDERLINE ST-T WAVE ABNORMALITY- INFERIOR LEADS BASELINE ARTIFACT- I, III, V1-V6 ABNORMAL ECG Compared to ECG 01/24/2024 09:12:53 NO SIGNIFICANT CHANGE Electronically Signed On 05-02-2024 13:58:36 RAIL ASSEMBLER by Abdias Ríos D.O.
[2024-05-02 14:09] LABS: Basophils Percent Auto 0.2 % (0.2-1.2); Eosinophils Percent Auto 0.2 % (0-4.4); Hematocrit 34.6 % (42.0-52.0); Hemoglobin 10.8 g/dL (14.0-18.0); Immature Granulocyte Absolute 0.03 K/mm3 (0.00-0.031); Immature Granulocyte Percent A 0.3 % (0-0.5); Lymphocytes Absolute Auto 1.13 K/mm3 (0.9-3.2); Lymphocytes Percent Auto 10.3 % (18.3-44.2); Mean Corpuscular HGB Conc 31.2 g/dl (32-36); Mean Corpuscular Hemoglobin 29.5 pg (26-34); Mean Corpuscular Volume 94.5 fl (80-100); Mean Platelet Volume 10.6 fl (7.4-10.4); Monocytes Absolute Auto 0.1 K/mm3 (0.1-0.6); Monocytes Percent Auto 1.3 % (2.6-8.5); Neutrophils Absolute Auto 9.6 K/mm3 (1.3-6.7); Neutrophils Percent Auto 87.7 % (45.5-73.1); Platelet Count Result 321 k/mm3 (150-375); Red Blood Count 3.66 M/mm3 (4.6-6.20); Red Cell Distribution Width 14.4 % (11.5-14.5); White Blood Count 10.9 K/mm3 (4.5-10.0)
--- NOTE | 2024-05-02 14:09 | ED_ITS ---
HPI - SOB/Dyspnea General Chief Complaint: Shortness of Breath/Dyspnea Stated Complaint: dyspnea Time Seen by Provider: 05/02/24 13:45 History of Present Illness HPI Narrative: Patient with several days of cough, shortness of breath, presents here due to difficulty breathing. Not on oxygen at home, no definitive diagnosis of COPD however he has had bronchitis and he did have about 70 year smoking history Related Data Allergies Allergy/AdvReac Type Severity Reaction Status Date / Time Penicillins Allergy Hives Verified 05/02/24 14:19 Review of Systems 2 Review of Systems: All systems reviewed & are unremarkable except as noted in HPI and below [facility] Past Medical History Medical History (Updated 05/02/24 @ 17:02 by Mellisa Chadwick MD) CAD (coronary artery disease) Diabetes mellitus CHF (congestive heart failure) Social History Social History Smoking packs per day: 1.5 Smoking cigarettes per day: 30.0 Years smoked: 60 Smoking pack-years: 90.00 Smoking status: Former smoker Tobacco type: cigarettes Additional smoking assessment comments: quit 2021 Alcohol intake: never Substance use: never Do You Feel Safe in your Home?: Yes Lack of Transportation: No Lack of Food: Never True Current Housing: I Have Housing Concerned About Future Housing: No Difficulty Paying Gas/Electric Bills: No Difficulty Paying for Meds: No Currently Unemployed: No Education: Master's Degree or Higher Difficulty w/ Childcare or Family Care: No Spiritual care concerns: No Exam 2 Narrative: EXAMINATION OF ORGAN SYSTEMS/BODY AREAS: Constitutional: Vital signs per nursing GENERAL:[No acute distress, non-toxic appearing.] HEAD: Normal with no signs of head trauma. EYES: EOMI, conjunctiva normal ENT: Hearing grossly intact LUNGS: Audible wheezing HEART: [Regular rate and rhythm] ABD: [Soft], [nontender to palpation] EXT: Normal range of motion SKIN: [No rashes or lesions.] NEURO: [Alert and oriented x 3. No gross focal sensory or strength deficits.] PSYCH: Normal affect Course Vital Signs Vital signs: Vital Signs Temperature 97.6 F 05/02/24 13:24 Pulse Rate 105 H 05/02/24 13:24 Respiratory Rate 18 05/02/24 13:24 Blood Pressure 141/63 H 05/02/24 13:24 Pulse Oximetry 98 05/02/24 13:24 Oxygen Delivery Room Air 05/02/24 13:24 Temperature 97.6 F 05/02/24 13:24 Pulse Rate 95 05/02/24 15:00 Respiratory Rate 20 05/02/24 15:00 Blood Pressure 141/63 H 05/02/24 13:33 Pulse Oximetry 100 05/02/24 14:45 Oxygen Delivery Nasal Cannula 05/02/24 13:39 Oxygen Flow Rate 2 05/02/24 13:39 MDM - SOB/Dyspnea MDM Narrative Medical decision making narrative: Patient presents with increased shortness of breath cough, smoking history. He is wheezing quite on early on exam, also hypoxic requiring oxygen, infectious workup initiated, started on nebs and antibiotics, and re-evaluation is feeling much better, though still hypoxic requiring oxygen. CT chest showing some pleural effusion potential mild pulmonary edema, he has no history of CHF, at this point he since he is still hypoxic I do feel he needs to be admitted, discussed with hospitalist for admission. Family agreeable to plan Lab Data 05/02/24 13:55 05/02/24 13:55 Labs: Lab Results 05/02/24 05/02/24 Range/Units 13:55 15:11 WBC 10.9 H (4.5-10.0) K/mm3 RBC 3.66 L (4.6-6.20) M/mm3 Hgb 10.8 L D (14.0-18.0) g/dL Hct 34.6 L (42.0-52.0) % MCV 94.5 (80-100) fl MCH 29.5 (26-34) pg MCHC 31.2 L (32-36) g/dl RDW 14.4 (11.5-14.5) % Plt Count 321 (150-375) k/mm3 MPV 10.6 H (7.4-10.4) fl Immature Gran % (Auto) 0.3 (0-0.5) % Neut % (Auto) 87.7 H (45.5-73.1) % Lymph % (Auto) 10.3 L (18.3-44.2) % Seminole % (Auto) 1.3 L (2.6-8.5) % Eos % (Auto) 0.2 (0-4.4) % Baso % (Auto) 0.2 (0.2-1.2) % Lymph # (Auto) 1.13 (0.9-3.2) K/mm3 [place]inole # (Auto) 0.1 (0.1-0.6) K/mm3 Eos # (Auto) 0.0 (0-0.3) K/mm3 Baso # (Auto) 0.0 (0.0-0.1) K/mm3 Abs Immat Gran (auto) 0.03 (0.00-0.031) K/mm3 Absolute Neuts (auto) 9.6 H (1.3-6.7) K/mm3 Absolute Nucleated RBC 0.000 (0.0-0.012) K/mm3 Nucleated RBC % 0.0 (0.0-0.2) % D-Dimer 1.47 H (<0.48) ug/mL Sodium 144 (137-145) mmol/L Potassium 4.6 (3.4-5.0) mmol/L Chloride 108 H (98-107) mmol/L Carbon Dioxide 22 (22-30) mmol/L Anion Gap 14 H (4-12) mmol/L BUN 34 H (9-20) mg/dL Creatinine 2.07 H (0.7-1.3) mg/dL Estim Creat Clear Calc 22 ml/min Estimated GFR 31 L (59 - ) Glucose 242 H (65-110) mg/dL POC Capillary Glucose 214 H (65-105) mg/dl Lactic Acid 2.9 H (0.7-2.0) mmol/L Calcium 9.1 (8.4-10.2) mg/dL Total Bilirubin 0.7 (0.2-1.3) mg/dL AST 25 (17-59) U/L ALT 24 (6-50) U/L Alkaline Phosphatase 122 (38-126) U/L Total Protein 7.0 (6.3-8.2) g/dL Albumin 3.8 (3.5-5.1) g/dL Influenza A (RT-PCR) Negative (Negative) Influenza B (RT-PCR) Negative (Negative) RSV (RT-PCR) Negative (Negative) SARS-CoV-2 RNA (RT-PCR) Negative (Negative) Critical Care Time Critical Care Time Critical Care Time: Yes Total Critical Care Time: 31 Discharge Plan Discharge Clinical Impression: Acute bronchitis with COPD Patient Disposition: Still a Patient Condition: Stable Patient Language: Belarusian Prescriptions: No Action aspirin 81 mg Tablet,Delayed Release (Dr/Ec) 81 mg PO QAM Qty: 90 0RF doxycycline hyclate 100 mg Tablet 100 mg PO Q12HR Qty: 11 0RF atorvastatin 40 mg tablet 40 mg PO DAILY Qty: 90 0RF Rx Instructions: please start taking 40 mg daily as your insurance denying 80 mg. You will need to take 80 mg daily as recommended per cardiology- please make sure you discuss it with cardiology when you follow up with them Follow-up/Referrals: Krishna Conti MD [Primary Care Provider] -
[2024-05-02] MEDS: ALBUTEROL SULFATE NEB 2.5 MG/3 ML INH 15 MG INHALATION (14:10)
[2024-05-02] MEDS: IPRATROPIUM BR 0.02% INH SOLN 0.5 MG/2.5 ML VIAL 1 MG INHALATION (14:10)
[2024-05-02] MEDS: methylPREDNISolone SOD SUCC 40 MG VIAL IV PUSH (14:17)
[2024-05-02 14:21] LABS: Lactic Acid Reflex 2.9 mmol/L (0.7-2.0)
[2024-05-02 14:22] LABS: Alanine Aminotransferase 24 U/L (6-50); Albumin Level 3.8 g/dL (3.5-5.1); Alkaline Phosphatase 122 U/L (38-126); Anion Gap 14 mmol/L (4-12); Aspartate Amino Transferase 25 U/L (17-59); Bilirubin,Total 0.7 mg/dL (0.2-1.3); Blood Urea Nitrogen 34 mg/dL (9-20); Calcium 9.1 mg/dL (8.4-10.2); Carbon Dioxide 22 mmol/L (22-30); Chloride 108 mmol/L (98-107); Estimated CRCL calculation 22 ml/min; Estimated Glomerular Filt Rate 31; Glucose 242 mg/dL (65-110); Potassium 4.6 mmol/L (3.4-5.0); Sodium 144 mmol/L (137-145)
[2024-05-02 14:27] LABS: D Dimer 1.47 ug/mL (<0.48)
[2024-05-02] MEDS: cefTRIAXone 2 GM/NS 100 ML 2 GM/100 ML BAG IVPB (14:29)
[2024-05-02 14:46] LABS: Influenza A QL RT-PCR Negative (Negative); Influenza B QL RT-PCR Negative (Negative); RSV RNA, RT-PCR Negative (Negative); SARS-CoV-2 RNA PCR Negative (Negative)
--- OUTSIDE RECORDS SUMMARY | 2024-05-02 15:01 | XMS_ITS | Clinical Summary ---
Author Organization [facility] Address [address] [place] [address] Care Team Providers Care Office Equipment Mechanic Name Role Phone Akash Saavedra MD Unavailable Feliciano Benitez MD Unavailable [phone] Krishna Conti MD Primary Care Provider Allergies Active Allergy Reactions Criticality Noted Date Comments Penicillins Hives,Urticaria High 01/25/2012 Medications aspirin 81 mg enteric coated tablet Take 1 tablet (81 mg total) by mouth every morning 01/27/2024 Active glimepiride (AMARYL) 1 mg tablet Take 1 tablet (1 mg total) by mouth daily 02/03/2024 Active lisinopriL (PRINIVIL,ZESTR IL) 5 mg tablet Take 1 tablet (5 mg total) by mouth daily 02/03/2024 Active atorvastatin (LIPITOR) 80 mg tablet Take 1 tablet (80 mg total) by mouth daily 90 tablet 3 03/16/2024 5 Active Active Problems Problem Noted Date Diagnosed Date Entropion of right eyelid 10/21/2022 Bladder stone 08/25/2021 Overview (08/25/2021): Added automatically from request for surgery [id number] Encounters Date Type Department Care Team Description 03/16/2024 Telephone [facility] Cardiology [address] [place] [address] Gabriela Nance MD 02/14/2024 10:00 AM PACU RN Office Visit [facility] Cardiology [address] [place] [address] Charo Dias NP NSTEMI (non-ST elevated myocardial infarction) (CMS/HCC) (HCC) (Primary Dx); Diastolic heart failure, unspecified HF chronicity (HCC); Nonrheumatic aortic valve stenosis; Hospital discharge follow-up 01/31/2024 Orders Only [facility] Cardiology [address] [place] [address] Gabriela Nance MD from Last 3 Months Surgical History Surgery Date Site/Laterality Comments CAROTID ENARTERECTOMYY Left Left Carotid Endarterectomy. 2000's EYE SURGERY 10/14/2012 Right eyelid sx ANGIOPLASTY CARDIAC CATHETERIZATION 03/22/2017 - 03/21/2018 2018 PERCUTANEOUS CYSTOLITHOLAPAXY 09/11/2021 BACK SURGERY 04/04/2013 Lumbar Medical History Medical History Date Comments Hx Other Medical Left Carotid Di sease Hx Other Medical Diabetes Type I I Hyperlipidemia Hyperlipidemia Hx Other Medical TIA Stroke (HCC) Arthritis History of skin cancer Glaucoma Family History Medical History Relation Name Comments Glaucoma Neg Hx Macular degeneration Neg Hx Social History Tobacco Use Types Packs/Day Years Used Date Smoking Tobacco: Former Cigarettes 1 72 0 [birth year]/20/1949 - 07/20/2021 Smokeless Tobacco: Never Tobacco Cessation:Counseling Given: Not Answered Comments:Smoking History Packs/day: 1 Packs Alcohol Use Standard Drinks/Week Comments Yes 0 (1 standard drink = 0.6 oz pur e alcohol) AUDIT-C Answer Date Recorded Q1: How often do you have a drink containing alcohol? Never 10/26/2022 Q2: How many drinks containi ng alcohol do you have on a typical day when you are drinking? Patient does not drink Q3: How often do you have si x or more drinks on one occasion? Never 10/26/2022 Personal Safety Answer Date Recorded Have you ever been in or are you currently in a harmful physical or emotional relationship or is someone making you feel afraid or unsafe? Denies 10/26/2022 Sex and Gender Information Value Date Recorded Sex Assigned at Not on file Legal Sex Male 5:10 PM PACU RN Gender Identity Not on file Sexual Orientation Not on file Obstetrics History Last Filed Vital Signs Vital Sign Reading Time Taken Comments Blood Pressure 110/74 02/14/2024 10:05 AM PACU RN Pulse 72 02/14/2024 10:05 AM PACU RN Temperature 35.8 C (96.4 F) 10/26/2022 2:20 PM CDT Respiratory Rate 22 10/26/2022 2:50 PM CDT Oxygen Saturation 99% 02/14/2024 10:05 AM PACU RN Inhaled Oxygen Concentration - - Weight 79.4 kg (175 lb) 02/14/2024 10:05 AM PACU RN Height 165.1 cm (5' 5 ) 02/14/2024 10:05 AM PACU RN Body Mass Index 29.12 02/14/2024 10:05 AM PACU RN Plan of Treatment Health Maintenance Due Date Last Done Comments Depression Screening 1936 DTaP/Tdap/Td Vaccine (1 - Tdap) 10/26/1947 Hepatitis B Screening 1954 Zoster Vaccine (1 of 2) 1986 Pneumococcal vaccine 65+ (1 of 1 - PCV) 2001 Well Visit 65+ 2001 Fall Risk Assessment 10/27/2023 10/26/2022 Covid-19 Vaccine (3 - season) 2023, 04/15/2020 Influenza Vaccine (#1) 2023 [place] [address] COUNTS INCLUDE 234 BEDS AT THE [facility] TRADITIONAL [facility] MEDICARE GOLD Care Teams Office Equipment Mechanic Relationship Specialty Start Date End Date Krishna Conti MD [address] [facility] [address] [facility] [address] [place] [address] PCP - General Family Medicine 02/14/24 Akash Saavedra MD [address] [place] [address] DEJUAN PERES [facility] [address] [place] [address] Consulting Physician Urology 09/11/21 Feliciano Benitez MD [address] DEPT OPHTHALMOLOGY, [facility] [address] [place] [address] Surgeon Ophthalmology 10/26/22
--- OUTSIDE RECORDS SUMMARY | 2024-05-02 15:01 | XMS_ITS | Continuity of Care Document ---
Author Organization [facility] Address [address] [place] [address] Phone Care Team Providers Care Metropolitan Editor Name Role Phone Krishna Conti MD Unavailable Unavailable Allergies, Adverse Reactions, Alerts Substance Reaction Status Criticality PENICILLIN Hives / Skin Rash Active No Informa tion Medications Medication Instructions Dosage Effective Dates (start - stop) Status Comments Zithromax Z-Shivam 250 mg tablet take 2 tablet by oral route every day for 1 day then 1 tablet (250 mg) by oral route once daily for 4 days 500 MG - Active prednisone 20 mg tablet take 3 Tablet by oral route every day 60 MG - Active albuterol sulfate HFA 90 mcg/actuation aerosol inhaler inhale 1 puff by inhalation route every 4 - 6 hours as needed as needed 1 puff - Active PRN for sob FreeStyle Curtis 3 Plus Sensor device apply to upper arm and change every 14 days - Active glimepiride 1 mg tablet take 1 tablet by oral route every day 1 MG - Active take before major meal lisinopril 5 mg tablet take 1 tablet by oral route every day 5 MG - Active FreeStyle Curtis 3 Killbuck use with freestyle curtis 3 plus sensor - Active Lipitor 80 mg tablet take 1 tablet by oral route every day 80 MG - Active aspirin 81 mg tablet,delayed release take 1 tablet by oral route every day 81 MG - Active Procedures Procedure Date OFFICE/OUTPATIENT VISIT, EST OFFICE/OUTPATIENT VISIT, EST OFFICE/OUTPATIENT VISIT, EST OFFICE/OUTPATIENT VISIT, EST PREV VISIT, NEW, 65 & OVER Advance Directives Directive Yes / No Effective Date File Name No Information Encounters Encounter Description Practice Location Reason(s) For Visit Diagnoses Date Provider Providers Copied on Encounter OFFICE/OUTPA TIENT VISIT, [facility], [address], [place], [place], [id number], [place] tel:[phone] [facility] DM (chief complaint) cough1 (chief complaint) Type 2 diabetes mellitus without complicationsAcute bronchitis 5 Gallito Keller. [address], [place], [place], [address] , [place]. tel:[phone] OFFICE/OUTPA TIENT VISIT, [facility], [address], [place], [place], [id number], [place] tel:[phone] [facility] DM (chief complaint) back pain1 (chief complaint) renal failure1 (chief complaint) Type 2 diabetes mellitus without complicationsChroni c pain syndromeNevus, non-neoplasticAcute kidney failure 5 Gallito Kessler [address], [place], [place], [address] , [place]. tel:[phone] OFFICE/OUTPA TIENT VISIT, [facility], [address], [place], [place], [address], [place] tel:[phone] [facility] DM (chief complaint) renal disease1 (chief complaint) HF (chief complaint) skin1 (chief complaint) Acute kidney failureCardiac failureEssential (primary) hypertensionType 2 diabetes mellitus without complicationsNevus, non-neoplastic 4 Gallito Kessler [address], [place], [place], [address] , [place]. tel:[phone] [facility], [address], [place], [place], [address], [place] tel:[phone] [facility] No Information 4 Gallito Kessler [address], [place], [place], [address] , [place]. tel:[phone] OFFICE/OUTPA TIENT VISIT, EST [facility], [address] [place], [place], [address], tel:[phone] [facility] Medicine CHF1 (chief complaint) Type 2 diabetes mellitus without complicationsAcute kidney failureCardiac failureEssential (primary) hypertension 4 Conti Krishna. [address], [place], [place], [address] , [place]. tel:[phone] PREV VISIT, NEW, 65 & OVER [facility], [address] [place], [place], [address], [place] tel:[phone] [facility] physical (chief complaint) Encounter for general adult medical examination without abnormal findings 4 Gallito Keller. [address] [facility] [place], [place], [place], [address] , [place]. tel:[phone] Family History Family Member Type Diagnosis Age At Onset Sister Problem 93, still alive, but very si ck due to old age Brother Problem of sinus cancer 85 Father Problem of alcohol related 72 Mother Problem 52 due to unknown [place] Payers Payer name Insurance type Covered alliance party ID Rhonda devries(s) [employer] Medicare CI [id number] Social History Type Description Quantity Date Captured Comments Alcohol Use Details 2 drinks yearly Caffeine Use Details Unknown Tobacco Use Status Ex-cigarette smoker 025 Smoking Status Former smoker Sex Male Vital Signs Date / Time: Height Weight BMI Pulse Rate Blood Pressure Temperature Respiratory Rate Body Surface Area Head Circumference BMI percentile Pulse Ox Inhaled Ox 3:24 PM 65.00 in 175.80 lbs 29.2 5 kg/m eter (2) 70 /min 120/68 mm[Hg] 97.9 F 16 /min 97 21 Chief Complaint And Reason For Visit From encounter dated '05/01/2024 15:17'. DM (chief complaint). Description: Pt has DM pt is on 0.5 mg amaryl in the morning and he no longerhas night time hypoglycemia. his glucose is around 150s during the day. cough1 (chief complaint). Description: Pt c/o acute dry cough, chest congestion, winded for 5 days Pt denies any fever, chill, sore throat Pt has mild sinus congestion as well Plan Of Treatment Date Type Action Status Referral Ordered: Endocrinology, Diabetes and Metabolism (related to Type 2 diabetes mellitus without complications) ordered Referral Ordered: Referrals: Endocrinology, Diabetes and Metabolism. Evaluate and treat ordered Referral Ordered: Dermatology (related to Nevus, non-neoplastic) ordered Referral Ordered: Referrals: Dermatology. Evaluate and treat ordered Appointment Vincent Wade (Bill) Appointment Vincent Wade) SUE Trammell History Of Present Illness Encounter Date Complaint History Of Prese nt Illness cough1 Pt c/o acute dry cough, chest congestion, winded for 5 days Pt denies any fever, chill, sore throat Pt has mild sinus congestion as well DM Pt has DM pt is on 0.5 mg amaryl in the morning and he no longer has night time hypoglycemia. his glucose is around 150s during the day. renal failure1 Pt has chronic s tage III renal disease Pt is seeing nephrology Pt had lab done earlier this month which showed improving renal function and creatine. 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 Pt has hard time walking more than 10 yards without any back pain DM Pt has DM pt yamilex es amaryl 1 mg in the morning and his glucose is around 120 during the day but his glucose drops frequently down to 50s at night which occasionally makes him dizzy. Pt even tried to eat something before bedtime but it still happens. skin1 Pt notices a sma ll recurrent scab left chin area for 6 weeks with bleeding whenever he shaves. HF Pt has recent HF . Pt denies any swelling Pt is on lipitor and lisinopril Pt saw stud setter recently and was told to continue meds and follow up in 3 months renal disease1 pt has stage III renal disease .Pt is on lisinopril Pt has normal UO .Pt saw temporary office assistant and he will do some lab work soon. he was told that his kidney is fine currently DM Pt has DM Pt is taking amaryl and his glucose is around 115s. pt denies any hypoglycemia. He had couple of episode of BG drop to 50s around 1 am but rest of time, his glucose is ok CHF1 Pt was recently admitted to hospital due to acute onset of CHF. his BNP was 12,000 Pt was initially started on diuretics but his renal function worsened so the diuretic was held. His creatine went from 2.5 to 2.6 and the most recent lab was 2.5 again. he denies any edema. Pt denies any sob. Pt had elevated troponin which trended down. He was evaluated by cardiology and cardiac echo showed moderately increased left ventricular wall thickness with borderline systolic function and also aortic valve stenosis. He did not get cardiac cath due to lack of chest pain and his age and the risks and he is opted for medical management with ASA and high intensity statin therapy. His LDL was 130. He also has newly diagnosed diabetes with A1c around 7.3. He denies any polyuria, polydipsia. Pt is on ASA and lipitor currently. Pt does have follow up alexandra with cardiology and nephrology next week. He currently denies any chest pain or sob or edema. physical Pt needs annual physical. pt is very healthy per his own standard. He does not take any medication Pt states that he feels fine for his age. Pt has history of carotid stenosis with bilateral stent. Pt does not have known CAD or PAD Pt does not take any ASA Pt does have chronic low back pain Pt sees pain management and he gets back injection regularly. pt denies any chest pain or any leg pain or any new complaints . Instructions Date Instruction Additional Infor mation No Information Assessments Type Assessment Date assessment Type 2 diabetes mellitus without complications assessment Acute bronchitis Mental Status Date Cognitive Assessment Orientation - Hibernia ed to time, place, person, situation.
--- OUTSIDE RECORDS SUMMARY | 2024-05-02 15:01 | XMS_ITS | Referral Summary ---
Author Organization [facility] Address [address] [place] [address] Care Team Providers Care Access Nurse Name Role Phone Akash Saavedra MD Unavailable Feliciano Benitez MD Unavailable [phone] Krishna Conti MD Primary Care Provider [phone] Encounters Date Type Department Care Team Description 03/16/2024 Telephone [facility] Cardiology [address] [place] [address] Gabriela Nance MD 02/14/2024 10:00 AM LPN OR MEDICAL ASSISTANT Office Visit [facility] Cardiology [address] [place] [address] Charo Dias NP NSTEMI (non-ST elevated myocardial infarction) (CMS/HCC) (HCC) (Primary Dx); Diastolic heart failure, unspecified HF chronicity (HCC); Nonrheumatic aortic valve stenosis; Hospital discharge follow-up 01/31/2024 Orders Only [facility] Cardiology [address] [place] [address] Gabriela Nance MD from Last 3 Months Allergies Active Allergy Reactions Criticality Noted Date [...] (08/25/2021): Added automatically from request for surgery [id number] Social History Tobacco Use Types Packs/Day Years [...] on file Legal Sex Male 5:10 PM LPN OR MEDICAL ASSISTANT Gender Identity Not on file Sexual Orientation Not on file Last Filed Vital Signs Vital Sign Reading Time Taken Comments Blood Pressure 110/74 02/14/2024 10:05 AM LPN OR MEDICAL ASSISTANT Pulse 72 02/14/2024 10:05 AM LPN OR MEDICAL ASSISTANT Temperature 35.8 C (96.4 F) 10/26/2022 2:20 PM CDT Respiratory Rate 22 10/26/2022 2:50 PM CDT Oxygen Saturation 99% 02/14/2024 10:05 AM LPN OR MEDICAL ASSISTANT Inhaled Oxygen Concentration - - Weight 79.4 kg (175 lb) 02/14/2024 10:05 AM LPN OR MEDICAL ASSISTANT Height 165.1 cm (5' 5 ) 02/14/2024 10:05 AM LPN OR MEDICAL ASSISTANT Body Mass Index 29.12 02/14/2024 10:05 AM LPN OR MEDICAL ASSISTANT Plan of Treatment Not on file Insurance MEDICARE [facility] TRADITIONAL [employer] MEDICARE GOLD Care Teams Access Nurse Relationship Specialty Start Date End Date Krishna Conti MD [address] [facility] [address] [place] [address] PCP - General Family Medicine 02/14/24 Akash Saavedra MD [address] [facility] [address] [place] [address] Consulting Physician Urology 09/11/21 Feliciano Benitez MD [address] DEPT OPHTHALMOLOGY, [facility] [address] [place] [address] Surgeon Ophthalmology 10/26/22
[2024-05-02] MEDS: DOXYCYCLINE HYCLATE 100 MG TABLET PO (15:12)
[2024-05-02 15:16] LABS: Glucose Point of Care 214 mg/dl (65-105)
[2024-05-02 17:05] LABS: Reflex Lactic Acid Yes or No Add Lactic
--- NOTE | 2024-05-02 17:38 | PC.NURSE ---
applied natividad nino for pt comfort. offered to shave area for removal and patient kindly declined.
[2024-05-02 17:39] LABS: Lactic Acid 3.3 mmol/L (0.7-2.0)
--- NOTE | 2024-05-02 20:56 | ADMGEN ---
This patient, Vincent Wade Jr., was admitted to 3 [facility] Surg Room 322-01. Patient/family oriented to hospital policies and general routines including ID bracelet, bed and alarms, visiting hours, pain management, procedures, bathroom and other care routines, personal items, smoking policy, room service/diet, and visiting hours. Information on how to activate the Rapid Response Team has been discussed. Patient/Family are encouraged to report perceived risks to care and to ask questions if they do not understand what they are told or what they should do.
[2024-05-03 02:18] LABS: Basophils Percent Auto 0.1 % (0.2-1.2); Hematocrit 30.8 % (42.0-52.0); Hemoglobin 9.2 g/dL (14.0-18.0); Immature Granulocyte Absolute 0.04 K/mm3 (0.00-0.031); Immature Granulocyte Percent A 0.4 % (0-0.5); Immature Platelet Fraction Pct 3.6 % (0.9-11.2); Lymphocytes Percent Auto 7.6 % (18.3-44.2); Mean Corpuscular HGB Conc 29.9 g/dl (32-36); Mean Corpuscular Hemoglobin 28.8 pg (26-34); Mean Corpuscular Volume 96.6 fl (80-100); Mean Platelet Volume 10.8 fl (7.4-10.4); Monocytes Absolute Auto 0.4 K/mm3 (0.1-0.6); Monocytes Percent Auto 3.6 % (2.6-8.5); Neutrophils Absolute Auto 9.2 K/mm3 (1.3-6.7); Neutrophils Percent Auto 88.3 % (45.5-73.1); Platelet Count Result 287 k/mm3 (150-375); Red Blood Count 3.19 M/mm3 (4.6-6.20); White Blood Count 10.5 K/mm3 (4.5-10.0)
[2024-05-03 02:30] LABS: Anion Gap 13 mmol/L (4-12); Blood Urea Nitrogen 37 mg/dL (9-20); Calcium 8.9 mg/dL (8.4-10.2); Carbon Dioxide 20 mmol/L (22-30); Chloride 107 mmol/L (98-107); Estimated CRCL calculation 21 ml/min; Estimated Glomerular Filt Rate 33; Glucose 208 mg/dL (65-110); Potassium 4.8 mmol/L (3.4-5.0); Sodium 140 mmol/L (137-145)
[2024-05-03 02:39] LABS: NT Pro B Type Natriuretic Pept 11900 pg/mL (19.9-100)
[2024-05-03 02:41] LABS: Burr Cells 1+; Ovalocytes 1+; Platelet Estimate Adequate (Adequate); Poikilocytosis 1+; Schistocytes None Seen
[2024-05-03 02:45] LABS: INR 1.2; Prothrombin Time 16.1 Seconds (11.1-14.7)
[2024-05-03 02:50] LABS: Lactic Acid Reflex 1.7 mmol/L (0.7-2.0)
--- NOTE | 2024-05-03 03:32 | PM.IMHP ---
H&P: HPI History of Present Illness Date/Time: 05/03/24 03:32 Chief Complaint: Shortness of breath Narrative: This is a pleasant 88-year-old male with a past medical history CKD stage 3, history of acute hypoxic respiratory failure due to pulmonary edema, history of NSTEMI patient opted for medical management, heart failure preserved ejection fraction hypertension, remote tobacco abuse, jew-[id number] diabetes mellitus. 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 He was ultimately discharged without diuretics due to his elevated serum creatinine. A few days prior to this admission he developed shortness of breath. Denies cough or fever or chest pain. Denies weight gain or leg swelling. He reports yesterday he was prescribed an inhaler by someone as he sought out evaluation. He presents today to [facility] on 05/02/2024 with worsening shortness of breath. ER course reveals normal temperature, respiratory of 22, 80% O2 saturation on room air, placed on 3 L nasal cannula. Blood pressure 117/56. WBC 10.9, hemoglobin 10.8, D-dimer 1.47, BUN 34, serum creatinine 2.07, glucose 242, lactic acid 2.9. A CTA chest was performed which demonstrated moderate-sized bilateral loculated pleural effusions, no PE, mild pulmonary edema, mild emphysema. He was given Solu-Medrol ceftriaxone doxycycline and DuoNeb treatment. Review of Systems Review of Systems: All systems reviewed & are unremarkable except as noted in HPI and below (HPI) [facility] Past Medical History Medical History (Updated 05/03/24 @ 03:37 by Arielle Carmona MD) CAD (coronary artery disease) Diabetes mellitus CHF (congestive heart failure) Social History Social History Smoking packs per day: 1 Smoking cigarettes per day: 20.0 Years smoked: 70 Smoking pack-years: 70.00 Smoking status: Former smoker Tobacco type: cigarettes Additional smoking assessment comments: quit 2021 Alcohol intake: never Substance use: never Do You Feel Safe in your Home?: Yes Lack of Transportation: No Lack of Food: Never True Current Housing: I Have Housing Concerned About Future Housing: No Difficulty Paying Gas/Electric Bills: No Difficulty Paying for Meds: No Currently Unemployed: No Education: Associate Degree Difficulty w/ Childcare or Family Care: No Spiritual care concerns: No Meds Home Medications and Allergies Home Medications ?Medication ?Instructions ?Recorded ?Confirmed ?Type aspirin 81 mg tablet,delayed 81 mg PO QAM #90 tabs 01/27/24 05/02/24 Rx release albuterol sulfate 90 mcg/actuation 1 puff inhalation Q4H PRN 05/02/24 05/02/24 History aerosol inhaler shortness of breath or wheezing atorvastatin 40 mg tablet 80 mg PO HS 05/02/24 05/02/24 History blood-glucose sensor (FreeStyle 05/02/24 05/02/24 History Curtis 3 Plus Sensor device) glimepiride 1 mg tablet 0.5 mg PO DAILY 05/02/24 05/02/24 History lisinopril 5 mg tablet 5 mg PO HS 05/02/24 05/02/24 History prednisone 20 mg tablet 60 mg PO DAILY 05/02/24 05/02/24 History Allergies Allergy/AdvReac Type Severity Reaction Status Date / Time Penicillins Allergy Hives Verified 05/02/24 14:19 Vital Signs Vital Signs - 24 hr 05/02/24 13:24 05/02/24 13:33 05/02/24 13:39 Temperature 97.6 F Pulse Rate 105 H 106 H Respiratory Rate 18 19 Blood Pressure 141/63 H 141/63 H Pulse Oximetry 88 L 94 95 Oxygen Delivery Room Air Nasal Cannula Oxygen Flow Rate 2 05/02/24 14:10 05/02/24 14:15 05/02/24 14:45 Temperature Pulse Rate 97 99 99 Respiratory Rate 20 20 19 Blood Pressure Pulse Oximetry 98 100 Oxygen Delivery Oxygen Flow Rate 05/02/24 15:00 05/02/24 16:02 05/02/24 17:00 Temperature Pulse Rate 95 99 97 Respiratory Rate 20 14 17 Blood Pressure 121/61 Pulse Oximetry 97 Oxygen Delivery Oxygen Flow Rate 05/02/24 17:31 05/02/24 18:00 05/02/24 18:31 Temperature Pulse Rate 102 H 96 101 H Respiratory Rate 19 19 19 Blood Pressure 116/87 126/61 127/67 Pulse Oximetry 95 97 94 Oxygen Delivery Oxygen Flow Rate 05/02/24 19:01 05/02/24 19:32 05/02/24 20:00 Temperature Pulse Rate 93 93 91 Respiratory Rate 20 22 H 17 Blood Pressure 111/52 L 119/59 L Pulse Oximetry 93 100 99 Oxygen Delivery Oxygen Flow Rate 05/02/24 22:00 05/02/24 22:20 Temperature 97.8 F Pulse Rate 90 Respiratory Rate 16 Blood Pressure 117/56 L Pulse Oximetry 100 Oxygen Delivery Room Air Oxygen Flow Rate Exam Const: General: comfortable and no acute distress Other: A&O x3 HENMT: Mouth: Yes moist mucous membranes Eyes: Pupils: Equal, round and reactive pupils present Neck: Neck: supple Resp: Effort & Inspection: normal respiratory effort Other: Crackles at the bases Cardio: Rate: regular rate Rhythm: regular rhythm GI: GI Palp: Yes Soft to palpation and No Tenderness to palpation present (GI) Extrem: General: edema (Trace pitting edema) H&P: Results Labs Labs: Short CBC 05/02/24 05/03/24 Range/Units 13:55 02:07 WBC 10.9 H 10.5 H (4.5-10.0) K/mm3 Hgb 10.8 L D 9.2 L (14.0-18.0) g/dL Hct 34.6 L 30.8 L (42.0-52.0) % Plt Count 321 287 (150-375) k/mm3 BMP 05/02/24 05/03/24 13:55 02:07 Sodium 144 140 Potassium 4.6 4.8 Chloride 108 H 107 Carbon Dioxide 22 20 L BUN 34 H 37 H Creatinine 2.07 H 1.94 H Glucose 242 H 208 H Calcium 9.1 8.9 Liver Function 05/02/24 Range/Units 13:55 Total Bilirubin 0.7 (0.2-1.3) mg/dL AST 25 (17-59) U/L ALT 24 (6-50) U/L Alkaline Phosphatase 122 (38-126) U/L Albumin 3.8 (3.5-5.1) g/dL Assessment and Plan Assessment and plan (1) Acute hypoxic respiratory failure: Code(s): J96.01 - Acute respiratory failure with hypoxia Status: Acute (2) Lactic acidosis: Code(s): E87.20 - Acidosis, unspecified Status: Acute (3) Pleural effusion: Code(s): J90 - Pleural effusion, not elsewhere classified Status: Acute Plan This is a pleasant 88-year-old male with a past medical history CKD stage 3, history of acute hypoxic respiratory failure due to pulmonary edema, history of NSTEMI patient opted for medical management, heart failure preserved ejection fraction hypertension, remote tobacco abuse, [id number] diabetes mellitus. 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 He was ultimately discharged without diuretics due to his elevated serum creatinine. A few days prior to this admission he developed shortness of breath. Denies cough or fever or chest pain. Denies weight gain or leg swelling. He reports yesterday he was prescribed an inhaler by someone as he sought out evaluation. He presents today to [facility] on 05/02/2024 with worsening shortness of breath. ER course reveals normal temperature, respiratory of 22, 80% O2 saturation on room air, placed on 3 L nasal cannula. Blood pressure 117/56. WBC 10.9, hemoglobin 10.8, D-dimer 1.47, BUN 34, serum creatinine 2.07, glucose 242, lactic acid 2.9. Quad viral screen negative. A CTA chest was performed which demonstrated moderate-sized bilateral loculated pleural effusions, no PE, mild pulmonary edema, mild emphysema. He was given Solu-Medrol ceftriaxone doxycycline and DuoNeb treatment. ----- Patient reports his shortness of breath has improved after he arrived to the medical floor. He remains on 3 L although there has been no attempt to titrate down. This admission was accepted early in the day prior to my arrival. However, the patient is resting comfortably and he is stable. He also reports he prefers not to be transferred at this time. He also wants to be DNR has he reported to myself and the nurse. He is not wheezing, will not continue Solu-Medrol. There is possibly underlying pneumonia, received ceftriaxone and doxycycline. Will add metronidazole considering. His serum creatinine on repeat is 1.94 which is far below his peak of 2.60 on last admission. BNP 26172. Will give 1 time dose of Lasix 40 mg IV. trend weight and I/Os. Repeat two view chest x-ray 9:00 a.m. at which point we can re-evaluate management. He was not sent home last admission on diuretic due to elevated serum creatinine. His GFR also precludes the use of MRA and SGLT2 inhibitor. Consulting Nephrology to help assist in finding a good relative balance. Lactic acidosis has resolved --- SCDs DNR Hospitalist MIPS Advance Care Plan I have confirmed that the patient's Advanced Care Plan is present, code status is documented, or surrogate decision maker is listed in patient medical record.: Yes Medication Reconciliation I have utilized all available resources to obtain, update and review the patients current medications (includes all prescriptions, OTC, herbals, cannabis, and nutritional supplements).: Yes
[2024-05-03] MEDS: metroNIDAZOLE 500 MG/ISO 100ML 500 MG/100 ML BAG 100 MG IVPB (03:45)
[2024-05-03] MEDS: FUROSEMIDE INJ 40 MG/4 ML VIAL IV PUSH ×2 (03:45→12:51)
[2024-05-03 05:15] VITALS: O2SAT 94
[2024-05-03 05:20] LABS: MRSA (PCR) NOT DETECTED (NOT DETECTE)
[2024-05-03 06:00] VITALS: BP 105/53; PULSE 88; RESP 16; TEMP 36.6; O2SAT 93
--- NOTE | 2024-05-03 06:00 | ECHO_ITS ---
Patient Info Name: Vincent Wade Age: 88 years : 1935 Gender: Male Ht: 66 in Wt: 174 lbs BSA: 1.94 m2 HR: 88 bpm BP: 105 / 53 mmHg Heart Rhythm: Sinus Rhythm Technical Quality: Poor Exam Date: 05/03/2024 3:09 PM Exam Location: Echo Lab Patient Status: Outpatient Admit Date: 05/02/2024 Staff Ordering Physician: Mellisa Chadwick MD Library Attendant: Ermelinda Cox RDCS Attending Provider: Jass Peter MD Exam Type: CA echo dop color flow w con Study Info Indications - pleural effusion, pulm edema Complete two-dimensional, color flow and Doppler transthoracic echocardiogram is performed with contrast to opacify the left ventricle and to improve the deliniation of the left ventricle endocardial borders. Contrast/Agitated Saline Contrast/Ag. Saline: Definity Amount: 2.00 ml Administered By: Ermelinda Cox RDCS Existing IV Access: Yes IV Access Condition: patent with no signs of infiltration Summary 1. This is a very technically difficult study and would recommend repeat imaging if clinically indicated. 2. The left ventricle is normal in size and systolic function. Overall the LVEF is preserved and visually estimated to be 50-55%. Cannot rule the mild hypokinesis of the apical chatman and distal inferior wall. Left Ventricle The left ventricle is normal in size and systolic function. Overall the LVEF is preserved and visually estimated to be 50-55%. Cannot rule the mild hypokinesis of the apical chatman and distal inferior wall. Right Ventricle The right ventricle is not well visualized. Left Atria The left atrium is normal size. Right Atria The right atrium is normal size. Aortic Valve The aortic valve is not well visualized however the gradients across the valve does not suggest any hemodynamically significant aortic stenosis. Pulmonic Valve The pulmonic valve was not visualized. Mitral Valve The mitral valve is sclerotic with annular calcification. There is mild mitral regurgitation. Tricuspid Valve The tricuspid valve is not well visualized. Pericardium/Pleural There is no pericardial effusion in the available views. Inferior Vena Cava Normal inferior vena cava with <50% collapse upon inspiration consistent with elevated right atrial pressure, 10 mmHg. Normal inferior vena cava with <50% collapse upon inspiration consistent with elevated right atrial pressure, 10 mmHg. Aorta The aortic root is not well visualized. Left Ventricular Outflow Tract Name Value Normal LVOT Doppler LVOT Peak Gradient 2 mmHg LVOT Mean Gradient 1 mmHg LVOT VTI 12.98 cm LVOT VTI/AV VTI Ratio 0.35 Mitral Valve Name Value Normal MV Doppler MV Decel [place] 534.59 cm/s2 MV PHT 0 s MV Area (PHT) 3.82 cm2 4.00-5.00 MV Diastolic Function MV E Peak Velocity 106.08 cm/s MV A Peak Velocity 87.32 cm/s MV E/A 1.21 MV Decel Time 0 s MV Annular TDI MV E/e' (Septal) 20.64 <=8.00 Tricuspid Valve Name Value Normal TV Regurgitation Doppler TR Peak Velocity 272.75 cm/s TR Peak Gradient 30 mmHg Estimated PAP/RSVP RA Pressure 10 mmHg <=5 PA Systolic Pressure 40 mmHg <36 RV Systolic Pressure 40 mmHg <36 Aortic Valve Name Value Normal AV Doppler AV Peak Velocity 199.98 cm/s AV Peak Gradient 16 mmHg AV Mean Gradient 10 mmHg AV VTI 36.77 cm Ventricles Name Value Normal LV Fractional Shortening/Ejection Fraction 2D/MM LV Diastolic Volume (4C MOD) 93.74 ml LV EF (4C MOD) 55 % LV Diastolic Volume (2C MOD) 79.36 ml LV EF (2C MOD) 42 % LV Diastolic Volume (BP MOD) 88.10 ml 62.00-150.00 LV Diastolic Volume Index (BP MOD) 0.05 l/m2 0.03-0.07 LV Systolic Volume (BP MOD) 44.27 ml 21.00-61.00 LV Systolic Volume Index (BP MOD) 0.02 l/m2 0.01-0.03 LV EF (BP MOD) 50 % 52-72 LV Diastolic Length (4C) 8.92 cm LV Systolic Length (4C) 7.80 cm LV Stroke Volume (4C MOD) 51.71 ml Atria Name Value Normal LA Dimensions LA Volume (4C A-L) 58.59 ml LA Volume (BP A-L) 56.26 ml RA Dimensions RA Area (4C) 21.50 cm2 <=18.00 Report Signatures
[2024-05-03 08:00] VITALS: O2SAT 91
[2024-05-03 08:32] LABS: Glucose Point of Care 155 mg/dl (65-105)
--- NOTE | 2024-05-03 11:32 | PM.IMPN ---
Progress Note: A&P Assessment and Plan (1) Acute hypoxic respiratory failure: Code(s): J96.01 - Acute respiratory failure with hypoxia Status: Acute (2) Lactic acidosis: Code(s): E87.20 - Acidosis, unspecified Status: Acute (3) Pleural effusion: Code(s): J90 - Pleural effusion, not elsewhere classified Status: Acute Plan This is a pleasant 88-year-old male with a past medical history CKD stage 3, history of acute hypoxic respiratory failure due to pulmonary edema, history of NSTEMI patient opted for medical management, heart failure preserved ejection fraction hypertension, remote tobacco abuse, [id number] diabetes mellitus. Present ED with a chief complaint of shortness breath Patient was discharged from [facility] on 01/27/2024 with acute hypoxic respiratory failure and AKA on CKD and NSTEMI. He was ultimately discharged without diuretics due to his elevated serum creatinine. Acute respiratory failure, community-acquired pneumonia, COPD exacerbation A few days prior to this admission he developed shortness of breath. Denies cough or fever or chest pain. Denies weight gain or leg swelling. ER course reveals normal temperature, respiratory of 22, 80% O2 saturation on room air, placed on 3 L nasal cannula. CTA chest was performed which demonstrated moderate-sized bilateral loculated pleural effusions, no PE, mild pulmonary edema, mild emphysema. Received Solu-Medrol X-ray shows Acute respiratory failure, Continue DuoNeb scheduled albuterol nebulizer p.r.n. Recent admission to the hospital, was switch from azithromycin and ceftriaxone to doxycycline and cefepime, CKD stage 4 Creatinine on the baseline Avoid nephrotoxic medications Follow-up BMP Consult sash finisher for evaluation treatment Exacerbation of diastolic heart failure BNP 41689. X-ray shows pulmonary congestion and moderate pleural effusion Received Lasix 40 mg IV. trend weight and I/Os. Start Lasix 40 mg IV push daily Follow-up input output Type 2 diabetes Lantus 12 unit daily Start insulin sliding scale a.c. and q.h.s. Chronic anemia No obvious bleeding Likely secondary to CKD Follow-up BMP --- SCDs DNR Subjective Date/time seen: 05/03/24 11:32 Interval history: I saw examined patient in presents of patient's significant. Patient feels dyspnea is improving, still has cough, shortness breast exertion. Patient denies chest pain abdomen pain nausea vomiting. Exam Narrative: GENERAL: Pleasant, in no acute distress. Well-nourished. - EYES: EOMI. Anicteric. - HENT: Moist mucous membranes. - LUNGS: Coarse breath sound bilaterally, no wheezing, rhonchi, or rales. - CARDIOVASCULAR: Regular rate and rhythm. No murmur. No JVD. - ABDOMEN: Soft, non-tender and non-distended. No palpable masses. - EXTREMITIES: No edema. Peripheral pulses 2+. Non-tender. - NEUROLOGIC: No focal neurological deficits. CN II-XII grossly intact. - PSYCHIATRIC: Awake, Alert and oriented x 3. Appropriate mood and affect. - SKIN: No rashes or lesions. Warm. - LYMPH: No cervical lymphadenopathy. Objective Data Vital Signs Vital Signs: Vital Signs - 24 hr 05/02/24 13:24 05/02/24 13:33 05/02/24 13:39 Temperature 97.6 F Pulse Rate 105 H 106 H Respiratory Rate 18 19 Blood Pressure 141/63 H 141/63 H Pulse Oximetry 88 L 94 95 Oxygen Delivery Room Air Nasal Cannula Oxygen Flow Rate 2 05/02/24 14:10 05/02/24 14:15 05/02/24 14:45 Temperature Pulse Rate 97 99 99 Respiratory Rate 20 20 19 Blood Pressure Pulse Oximetry 98 100 Oxygen Delivery Oxygen Flow Rate 05/02/24 15:00 05/02/24 16:02 05/02/24 17:00 Temperature Pulse Rate 95 99 97 Respiratory Rate 20 14 17 Blood Pressure 121/61 Pulse Oximetry 97 Oxygen Delivery Oxygen Flow Rate 05/02/24 17:31 05/02/24 18:00 05/02/24 18:31 Temperature Pulse Rate 102 H 96 101 H Respiratory Rate 19 19 19 Blood Pressure 116/87 126/61 127/67 Pulse Oximetry 95 97 94 Oxygen Delivery Oxygen Flow Rate 05/02/24 19:01 05/02/24 19:32 05/02/24 20:00 Temperature Pulse Rate 93 93 91 Respiratory Rate 20 22 H 17 Blood Pressure 111/52 L 119/59 L Pulse Oximetry 93 100 99 Oxygen Delivery Oxygen Flow Rate 05/02/24 22:00 05/02/24 22:20 05/03/24 05:15 Temperature 97.8 F Pulse Rate 90 Respiratory Rate 16 Blood Pressure 117/56 L Pulse Oximetry 100 100 94 Oxygen Delivery Nasal Cannula Nasal Cannula Oxygen Flow Rate 2 1 05/03/24 06:00 05/03/24 08:00 Temperature 97.8 F Pulse Rate 88 Respiratory Rate 16 Blood Pressure 105/53 L Pulse Oximetry 93 91 Oxygen Delivery Nasal Cannula Oxygen Flow Rate 1 Intake/Output Intake/Output: Intake & Output 04/30/24 05/01/24 05/02/24 05/03/24 23:59 23:59 23:59 23:59 Intake Total 100 150 Output Total 100 Balance 100 50 Meds/Results Medications: Active Medications Generic Name Dose Route Start Last Admin Trade Name Freq PRN Reason Stop Dose Admin Atorvastatin Calcium 80 mg 05/03/24 21:00 Atorvastatin 40 Mg Tablet PO [facility] Dextrose 12.5 gm 05/03/24 01:33 Dextrose 50% 25 Gm/50 Ml Syringe IV PUSH PRN PRN Hypoglycemia Protocol Glucose 15 gm 05/03/24 01:33 Glucose Oral Gel 15 Gm Of Glucse In 37.5 Gm Tube PO PRN PRN Hypoglycemia Protocol Dextrose 1,000 mls @ 100 mls/hr 05/03/24 01:33 Dextrose 5% 1,000 Ml IVPB PRN PRN Hypoglycemia Protocol Metronidazole 500 mg in 100 mls @ 100 mls/hr 05/03/24 04:00 05/03/24 04:45 Flagyl 500 Mg/Iso Soln 100 Ml IVPB Infused Q8H [facility] Infusion Insulin Aspart 2 - 5 units 05/03/24 08:00 05/03/24 08:41 Insulin Aspart (*Bkc) 100 Units/Ml SUB-Q Not Given TIDWM [facility] Protocol Insulin Aspart 1 - 2 units 05/03/24 21:00 Insulin Aspart (*Bkc) 100 Units/Ml SUB-Q [facility] Protocol Lisinopril 5 mg 05/03/24 21:00 Lisinopril 5 Mg Tablet PO [facility] Perflutren Lipid Microsphere 0 ml 05/02/24 16:41 Perflutren Lipid Microspheres 1.5 Ml Vial Diluted To 10 Ml Total Volume IV PUSH 05/05/24 16:45 ONCE PRN adequate visualization Protocol Radiology Results: ITS Impressions Chest X-Ray 05/02/24 14:04 IMPRESSION: 1. Worsened airspace opacities in right mid and lower lung zones and left lower lung zone, consistent with pneumonia. 2. Emphysema. 3. Worsened small right pleural effusion 4. Cardiomegaly. Chest CTA 05/02/24 15:28 IMPRESSION: 1. No pulmonary embolus. Sensitivity is moderately decreased by motion artifact. 2. Mild pulmonary edema. 3. Mild emphysema. 4. Moderate-sized bilateral loculated pleural effusions. Labs Labs: Laboratory Results - last 24 hr 05/02/24 05/02/24 05/02/24 13:55 15:11 17:25 WBC 10.9 H RBC 3.66 L Hgb 10.8 L D Hct 34.6 L MCV 94.5 MCH 29.5 MCHC 31.2 L RDW 14.4 Plt Count 321 MPV 10.6 H Immature Gran % (Auto) 0.3 Neut % (Auto) 87.7 H Lymph % (Auto) 10.3 L Stafford % (Auto) 1.3 L Eos % (Auto) 0.2 Baso % (Auto) 0.2 Lymph # (Auto) 1.13 Stafford # (Auto) 0.1 Eos # (Auto) 0.0 Baso # (Auto) 0.0 Abs Immat Gran (auto) 0.03 Absolute Neuts (auto) 9.6 H Absolute Nucleated RBC 0.000 Nucleated RBC % 0.0 Platelet Estimate % Immature Plt Fraction Poikilocytosis Ovalocytes Chacha Cells Schistocytes PT INR D-Dimer 1.47 H Sodium 144 Potassium 4.6 Chloride 108 H Carbon Dioxide 22 Anion Gap 14 H BUN 34 H Creatinine 2.07 H Estim Creat Clear Calc 22 Estimated GFR 31 L Glucose 242 H POC Capillary Glucose 214 H Lactic Acid 2.9 H 3.3 H Calcium 9.1 Total Bilirubin 0.7 AST 25 ALT 24 Alkaline Phosphatase 122 NT-Pro-B Natriuret Pep Total Protein 7.0 Albumin 3.8 Nasal MRSA (PCR) Influenza A (RT-PCR) Negative Influenza B (RT-PCR) Negative RSV (RT-PCR) Negative SARS-CoV-2 RNA (RT-PCR) Negative 05/03/24 05/03/24 05/03/24 02:07 02:35 04:04 WBC 10.5 H RBC 3.19 L Hgb 9.2 L Hct 30.8 L MCV 96.6 MCH 28.8 MCHC 29.9 L RDW 14.0 Plt Count 287 MPV 10.8 H Immature Gran % (Auto) 0.4 Neut % (Auto) 88.3 H Lymph % (Auto) 7.6 L Stafford % (Auto) 3.6 Eos % (Auto) 0.0 Baso % (Auto) 0.1 L Lymph # (Auto) 0.80 L Stafford # (Auto) 0.4 Eos # (Auto) 0.0 Baso # (Auto) 0.0 Abs Immat Gran (auto) 0.04 H Absolute Neuts (auto) 9.2 H Absolute Nucleated RBC 0.000 Nucleated RBC % 0.0 Platelet Estimate Adequate % Immature Plt Fraction 3.6 Poikilocytosis 1+ Ovalocytes 1+ Chacha Cells 1+ Schistocytes None seen PT 16.1 H INR 1.2 D-Dimer Sodium 140 Potassium 4.8 Chloride 107 Carbon Dioxide 20 L Anion Gap 13 H BUN 37 H Creatinine 1.94 H Estim Creat Clear Calc 21 Estimated GFR 33 L Glucose 208 H POC Capillary Glucose Lactic Acid 1.7 Calcium 8.9 Total Bilirubin AST ALT Alkaline Phosphatase NT-Pro-B Natriuret Pep 49778 H Total Protein Albumin Nasal MRSA (PCR) Not detected Influenza A (RT-PCR) Influenza B (RT-PCR) RSV (RT-PCR) SARS-CoV-2 RNA (RT-PCR) 05/03/24 08:16 WBC RBC Hgb Hct MCV MCH MCHC RDW Plt Count MPV Immature Gran % (Auto) Neut % (Auto) Lymph % (Auto) Stafford % (Auto) Eos % (Auto) Baso % (Auto) Lymph # (Auto) Stafford # (Auto) Eos # (Auto) Baso # (Auto) Abs Immat Gran (auto) Absolute Neuts (auto) Absolute Nucleated RBC Nucleated RBC % Platelet Estimate % Immature Plt Fraction Poikilocytosis Ovalocytes Chacha Cells Schistocytes PT INR D-Dimer Sodium Potassium Chloride Carbon Dioxide Anion Gap BUN Creatinine Estim Creat Clear Calc Estimated GFR Glucose POC Capillary Glucose 155 H Lactic Acid Calcium Total Bilirubin AST ALT Alkaline Phosphatase NT-Pro-B Natriuret Pep Total Protein Albumin Nasal MRSA (PCR) Influenza A (RT-PCR) Influenza B (RT-PCR) RSV (RT-PCR) SARS-CoV-2 RNA (RT-PCR)
[2024-05-03 11:55] LABS: Glucose Point of Care 149 mg/dl (65-105)
[2024-05-03] MEDS: methylPREDNISolone SOD SUCC 40 MG VIAL IV PUSH ×3 (12:51→23:54)
[2024-05-03] MEDS: DOXYCYCLINE 100 MG/NS 100 ML 100 MG/100 ML BAG IVPB (12:51)
[2024-05-03] MEDS: CEFEPIME 2 GM/NS 50 ML 2 GM/50 ML BAG IVPB (12:52)
--- NOTE | 2024-05-03 13:22 | P.CONNP_ITS ---
Assessment and Plan Assessment and plan (1) Chronic kidney disease, stage IV (severe): Code(s): N18.4 - Chronic kidney disease, stage 4 (severe) Status: Chronic Assessment and Plan: * based on last hospitalization, baseline creatinine runs around 1.8 - 2.5mg/dl * however, I wonder if the 1.8mg/dl reading (March 2024) was a dilutional value since he was not on diuretic therapy * his creatinine of 2.5mg/dl on last hospitalization was also when he achieved euvolemic (required diuresis on that hospital stay) * presumably due to diabetes, vascular disease, and age-related change * suspect need for diuretic therapy and possible CHF may be playing a role as well * check serologies to r/o other potential diseases (ordered as outpatient but not done) * concerning that he received contrast (CTA of chest) in the ER.... * follow repeat labs and UOP (2) Acute hypoxic respiratory failure: Code(s): J96.01 - Acute respiratory failure with hypoxia Status: Acute Assessment and Plan: * improving * due to volume overload/pleural effusion * on IV diuretics * follow respiratory status (3) CHF (congestive heart failure): Code(s): I50.9 - Heart failure, unspecified Status: Acute Assessment and Plan: * suspect exacerbation of diastolic heart failure * elevated BNP noted on admission * CXR and CT of chest with pulmonary vascular congestion and bilateral pleural effusions * on IV lasix * follow I/Os and daily weights * Echo results noted: * echnically difficult study and would recommend repeat imaging if clinically indicated * left ventricle is normal in size and systolic function. * LVEF is preserved and visually estimated to be 50-55% * cannot rule the mild hypokinesis of the apical chatman and distal inferior wall * continue current therapy (4) Pleural effusion: Code(s): J90 - Pleural effusion, not elsewhere classified Status: Acute Assessment and Plan: * as noted on admission imaging * follow with current interventions * consider thoracentesis if no improvement with diuresis (5) Anemia: Code(s): D64.9 - Anemia, unspecified Status: Chronic Assessment and Plan: * due to CKD and possibly exacerbated by acute illness * follow trend of H/H (6) Diabetes mellitus: Code(s): E11.9 - Type 2 diabetes mellitus without complications Status: Chronic Assessment and Plan: * follow accu-cheks * glycemic control per hospitalist I will continue to follow the patient with you while he remains hospitalized and make further recommendations as deemed necessary. Thank you for allowing me to participate in the care of this patient. L History of Present Illness Reason for Consult Consult date: 05/03/24 Reason for consult: chronic renal failure Chief Complaint Chief complaint: COPD exac; possible new CHF History of Present Illness Narrative: The patient is 88-year-old male with a past medical history as outlined below who presented to [facility] Emergency Room with complaints of shortness of breath. According to the patient, he started developing shortness of breath few days ago prior to his presentation to the ER. He denies any fevers, chills, productive cough, or chest pain or for that matter increasing weight gain or lower extremity edema. As his shortness of breath continued to worsen over this period time, he presented to the emergency room for further assessment. Workup and evaluation emergency room demonstrated the patient to be hemodynamically stable but did have evidence of hypoxia with oxygen saturations of 80% on room air which subsequently improved with application 3 L by nasal cannula. Routine blood work demonstrated white blood cell count 10.9, hemoglobin 10.8, normal platelet count, elevated creatinine of 2.07mg/dL, glucose 242, lactic acid 2.9 with a D-dimer 0.47. Subsequent CT scan of the chest with contrast demonstrated no evidence of a pulmonary embolism but did show moderate size bilateral loculated pleural effusions with mild pulmonary edema and mild emphysema. He was given IV steroids, nebulizer treatments, and antibiotics after appropriate cultures were done. He was subsequently admitted to the hospital for further evaluation therapy. Since his admission, he has been initiated on IV diuretic therapy given the concerns of fluid overload with his bilateral pleural effusions and pulmonary edema by imaging studies. He reports improvement in his symptoms at the current time. Renal consultation was requested due to his chronic kidney disease. the patient is somewhat familiar to me as I saw him during his January 2020 for hospitalization for renal insufficiency in the context of volume overload and NSTEMI. During that hospital stay, his creatinine was 1.9 mg/dL admission and with IV diuresis, increase to 2.5 mg/dL although he he was able to achieve euvolemia with these interventions. Given his non STEMI, cardiac catheterization is recommended by Cardiology but the patient opted for conservative/medical therapy given the risks further worsening of his renal function with possible contrast exposure with the intended cardiac intervention. I subsequently saw the patient in follow-up following that January 2024 hospital stay and he was clinically stable at that time although I did not have any repeat labs following his hospitalization. He did have repeat labs in early March which showed his creatinine down to 1.8 mg/dL. As far as I am aware, he was not discharged on diuretic therapy and was not on diuretics at the time my office visit either although his volume status was stable at that time Currently, at the time my evaluation, he appears to be in no acute distress but still feels mildly short of breath. Review of Systems 2 Review of Systems: As per HPI. [facility] Past Medical History Medical History (Updated 05/05/24 @ 07:47 by Denton Laureano MD) CKD (chronic kidney disease) Non-ST elevation [place] (NSTEMI) CAD (coronary artery disease) Diabetes mellitus CHF (congestive heart failure) Social History Social History Smoking packs per day: 1 Smoking cigarettes per day: 20.0 Years smoked: 70 Smoking pack-years: 70.00 Smoking status: Former smoker Tobacco type: cigarettes Additional smoking assessment comments: quit 2021 Alcohol intake: never Substance use: never Do You Feel Safe in your Home?: Yes Lack of Transportation: No Lack of Food: Never True Current Housing: I Have Housing Concerned About Future Housing: No Difficulty Paying Gas/Electric Bills: No Difficulty Paying for Meds: No Currently Unemployed: No Education: Associate Degree Difficulty w/ Childcare or Family Care: No Spiritual care concerns: No Meds Home Medications and Allergies Home Medications ?Medication ?Instructions ?Recorded ?Confirmed ?Type aspirin 81 mg tablet,delayed 81 mg PO QAM #90 tabs 01/27/24 05/02/24 Rx release albuterol sulfate 90 mcg/actuation 1 puff inhalation Q4H PRN 05/02/24 05/02/24 History aerosol inhaler shortness of breath or wheezing atorvastatin 40 mg tablet 80 mg PO HS 05/02/24 05/02/24 History blood-glucose sensor (FreeStyle 05/02/24 05/02/24 History Curtis 3 Plus Sensor device) glimepiride 1 mg tablet 0.5 mg PO DAILY 05/02/24 05/02/24 History lisinopril 5 mg tablet 5 mg PO HS 05/02/24 05/02/24 History albuterol sulfate 90 mcg/actuation 2 puff inhalation QID PRN 05/05/24 Rx aerosol inhaler (Ventolin HFA) shortness of breath or wheezing #8.5 grams budesonide-formoterol HFA 80 2 puff inhalation Q12H #10.2 grams 05/05/24 Rx mcg-4.5 mcg/actuation aerosol inhaler (Symbicort) cefdinir 300 mg capsule 300 mg PO Q12H #10 caps 05/05/24 Rx prednisone 10 mg tablet 10 mg PO DIRECTED #14 tabs 05/05/24 Rx Allergies Allergy/AdvReac Type Severity Reaction Status Date / Time Penicillins Allergy Hives Verified 05/02/24 14:19 Vital Signs Vital Signs Temp Pulse Resp BP Pulse Ox O2 Del Method O2 Flow Rate 05/03/24 13:00 98.3 F 95 20 114/59 L 91 05/03/24 08:00 91 Nasal Cannula 1 05/03/24 06:00 97.8 F 88 16 105/53 L 93 05/03/24 05:15 94 Nasal Cannula 1 05/02/24 22:20 100 Nasal Cannula 2 05/02/24 22:00 97.8 F 90 16 117/56 L 100 05/02/24 20:00 91 17 119/59 L 99 05/02/24 19:32 93 22 H 100 05/02/24 19:01 93 20 111/52 L 93 05/02/24 18:31 101 H 19 127/67 94 05/02/24 18:00 96 19 126/61 97 05/02/24 17:31 102 H 19 116/87 95 Exam 2 Narrative: GENERAL APPEARANCE: elderly but well developed well nourished male in no acute distress HEENT: normocephalic, atraumatic, normal conjunctiva and sclera, nares patient NECK: no lymphadenopathy, thyromegaly, or JVD MOUTH: normal lips, teeth, and gums CARDIOVASCULAR: RRR, normal S1 and S2, no rub RESPIRATORY: coarse breath sounds with bibasilar crackles ABDOMEN: soft, nontender, nondistended, positive bowel sounds present EXTREMITIES: no evidence of cyanosis, clubbing, trace edema NEUROLOGICAL: alert and oriented x 3; CN II - XII intact bilaterally; no focal deficits noted Results Lab Results 05/04/24 07:10 05/05/24 06:50 Lab results: Most recent lab results Calcium 8.9 mg/dL (8.4-10.2) 05/03/24 02:07
[2024-05-03 15:00] VITALS: BP 114/59; PULSE 95; RESP 20; TEMP 36.8; O2SAT 91
[2024-05-03] MEDS: PERFLUTREN LIPID MICROSPHERES 1.5 ML VIAL DILUTED TO 10 ML TOTAL VOLUME IV PUSH (15:33)
[2024-05-03 16:56] LABS: Glucose Point of Care 191 mg/dl (65-105)
--- NOTE | 2024-05-03 17:04 | IVDEFINITY ---
Prior to administration of IV Definity the patient was educated on the risks and benefits of the imaging enhancing agent including potential adverse side effects. The patient verbalized understanding. Allergies were verified. No exclusion criteria were identified and at least one of the following inclusion criteria were met: 1) physician request, 2) patient technically difficult to image (per the [place] [employer] guidelines of two or more segments not discernable within the apical view), or 3) questionable left ventricular function. ?
[2024-05-03 20:14] VITALS: BP 111/83; PULSE 102; RESP 16; TEMP 36.9; O2SAT 95
[2024-05-03] MEDS: lisinopriL 5 MG TABLET PO (20:42)
[2024-05-03] MEDS: DOXYCYCLINE HYCLATE 100 MG TABLET PO (20:42)
[2024-05-03] MEDS: ATORVASTATIN 40 MG TABLET 80 MG PO (20:42)
[2024-05-03] MEDS: INSULIN ASPART (*BKC) 100 UNITS/ML SUB-Q (20:43)
[2024-05-03 20:51] LABS: Glucose Point of Care 247 mg/dl (65-105)
[2024-05-04] MEDS: methylPREDNISolone SOD SUCC 40 MG VIAL IV PUSH ×4 (05:06→23:15)
[2024-05-04 06:40] VITALS: BP 109/54; PULSE 88; RESP 16; TEMP 36.4; O2SAT 91
[2024-05-04 07:17] LABS: Basophils Percent Auto 0.1 % (0.2-1.2); Hematocrit 30.6 % (42.0-52.0); Hemoglobin 9.7 g/dL (14.0-18.0); Immature Granulocyte Percent A 0.7 % (0-0.5); Lymphocytes Absolute Auto 1.05 K/mm3 (0.9-3.2); Mean Corpuscular HGB Conc 31.7 g/dl (32-36); Mean Corpuscular Hemoglobin 28.7 pg (26-34); Mean Corpuscular Volume 90.5 fl (80-100); Mean Platelet Volume 10.7 fl (7.4-10.4); Monocytes Absolute Auto 0.3 K/mm3 (0.1-0.6); Monocytes Percent Auto 2.2 % (2.6-8.5); Neutrophils Absolute Auto 13.5 K/mm3 (1.3-6.7); Platelet Count Result 294 k/mm3 (150-375); Red Blood Count 3.38 M/mm3 (4.6-6.20)
[2024-05-04 08:00] VITALS: O2SAT 90
[2024-05-04 08:20] LABS: Glucose Point of Care 200 mg/dl (65-105)
[2024-05-04 08:21] LABS: Alanine Aminotransferase 21 U/L (6-50); Albumin Level 3.5 g/dL (3.5-5.1); Alkaline Phosphatase 85 U/L (38-126); Anion Gap 7 mmol/L (4-12); Aspartate Amino Transferase 20 U/L (17-59); Bilirubin,Total 0.6 mg/dL (0.2-1.3); Blood Urea Nitrogen 50 mg/dL (9-20); Carbon Dioxide 27 mmol/L (22-30); Chloride 103 mmol/L (98-107); Estimated CRCL calculation 17 ml/min; Estimated Glomerular Filt Rate 25; Glucose 197 mg/dL (65-110); Potassium 4.9 mmol/L (3.4-5.0); Sodium 137 mmol/L (137-145)
[2024-05-04] MEDS: FUROSEMIDE INJ 40 MG/4 ML VIAL IV PUSH (08:33)
[2024-05-04] MEDS: DOXYCYCLINE HYCLATE 100 MG TABLET PO ×2 (08:33→20:43)
[2024-05-04] MEDS: INSULIN GLARGINE (*BKC) 100 UNITS/ML 12 UNITS SUB-Q (08:37)
--- NOTE | 2024-05-04 11:58 | PM.IMPN ---
Progress Note: A&P Assessment and Plan (1) Acute hypoxic respiratory failure: Code(s): J96.01 - Acute respiratory failure with hypoxia Status: Acute (2) Lactic acidosis: Code(s): E87.20 - Acidosis, unspecified Status: Acute (3) Pleural effusion: Code(s): J90 - Pleural effusion, not elsewhere classified Status: Acute Plan This is a pleasant 88-year-old male with a past medical history CKD stage 3, history of acute hypoxic respiratory failure due to pulmonary edema, history of NSTEMI patient opted for medical management, heart failure preserved ejection fraction hypertension, remote tobacco abuse, [id number] diabetes mellitus. 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 He was ultimately discharged without diuretics due to his elevated serum creatinine. Acute respiratory failure, community-acquired pneumonia, COPD exacerbation A few days prior to this admission he developed shortness of breath. Denies cough or fever or chest pain. Denies weight gain or leg swelling. ER course reveals normal temperature, respiratory of 22, 80% O2 saturation on room air, placed on 3 L nasal cannula. CTA chest was performed which demonstrated moderate-sized bilateral loculated pleural effusions, no PE, mild pulmonary edema, mild emphysema. Received Solu-Medrol Acute respiratory failure with hypoxemia, ABG showed hypoxemic respiratory failure without CO2 retention Continue DuoNeb scheduled albuterol nebulizer p.r.n. Recent admission to the hospital, switch from azithromycin and ceftriaxone to doxycycline and cefepime. pt feels better today. 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 2.49 today patient's Cr is fluntuating 1.9 to 2.6 in past 1 year, not consistent with acute renal failure. hold Lasix now Exacerbation of diastolic heart failure BNP 35267. X-ray shows pulmonary congestion and moderate pleural effusion Received Lasix 40 mg IV. trend weight and I/Os. Start Lasix 40 mg IV push daily Follow-up input output repeated echo showed 1. This is a very technically difficult study and would recommend repeat imaging if clinically indicated. 2. The left ventricle is normal in size and systolic function. Overall the LVEF is preserved and visually estimated to be 50-55%. Cannot rule the mild hypokinesis of the apical chatman and distal inferior wall. hold lasix now as elevated Cr Type 2 diabetes Lantus 12 unit daily Start insulin sliding scale a.c. and q.h.s. Chronic anemia No obvious bleeding Likely secondary to CKD Follow-up BMP --- SCDs was DNR pt wants to change to full code now Patient may be discharged home today if his condition continue to improve Subjective Date/time seen: 05/04/24 11:58 Interval history: I saw examined patient in presents of patient's significant. Patient feels dyspnea is improving, still has cough, shortness of breath with exertion. Patient denies chest pain abdomen pain nausea vomiting. Exam Narrative: GENERAL: Pleasant, in no acute distress. Well-nourished. - EYES: EOMI. Anicteric. - HENT: Moist mucous membranes. - LUNGS: Coarse breath sound bilaterally, no wheezing, rhonchi, or rales. - CARDIOVASCULAR: Regular rate and rhythm. No murmur. No JVD. - ABDOMEN: Soft, non-tender and non-distended. No palpable masses. - EXTREMITIES: No edema. Peripheral pulses 2+. Non-tender. - NEUROLOGIC: No focal neurological deficits. CN II-XII grossly intact. - PSYCHIATRIC: Awake, Alert and oriented x 3. Appropriate mood and affect. - SKIN: No rashes or lesions. Warm. - LYMPH: No cervical lymphadenopathy. Objective Data Vital Signs Vital Signs: Vital Signs - 24 hr 05/03/24 15:00 05/03/24 20:14 05/04/24 06:40 Temperature 98.3 F 98.5 F 97.5 F L Pulse Rate 95 102 H 88 Respiratory Rate 20 16 16 Blood Pressure 114/59 L 111/83 109/54 L Pulse Oximetry 91 95 91 Intake/Output Intake/Output: Intake & Output 05/01/24 05/02/24 05/03/24 05/04/24 23:59 23:59 23:59 23:59 Intake Total 100 680 550 Output Total 950 Balance 100 -270 550 Meds/Results Medications: Active Medications Generic Name Dose Route Start Last Admin Trade Name Freq PRN Reason Stop Dose Admin Atorvastatin Calcium 80 mg 05/03/24 21:00 05/03/24 20:42 Atorvastatin 40 Mg Tablet PO 80 mg HS JUAN A Administration Dextrose 12.5 gm 05/03/24 01:33 Dextrose 50% 25 Gm/50 Ml Syringe IV PUSH PRN PRN Hypoglycemia Protocol Doxycycline Hyclate 100 mg 05/03/24 21:00 05/04/24 08:33 Doxycycline Hyclate 100 Mg Tablet PO 100 mg Q12HR JUAN A Administration Furosemide 40 mg 05/03/24 12:05 05/04/24 08:33 Furosemide Inj 40 Mg/4 Ml Vial IV PUSH 40 mg DAILY JUAN A Administration Glucose 15 gm 05/03/24 01:33 Glucose Oral Gel 15 Gm Of Glucse In 37.5 Gm Tube PO PRN PRN Hypoglycemia Protocol Dextrose 1,000 mls @ 100 mls/hr 05/03/24 01:33 Dextrose 5% 1,000 Ml IVPB PRN PRN Hypoglycemia Protocol Cefepime HCl 2 gm in 50 mls @ 100 mls/hr 05/03/24 12:00 05/03/24 13:22 Maxipime 2 Gm/Ns 50 Ml IVPB Infused Q24H JUAN A Infusion Insulin Aspart 2 - 5 units 05/03/24 08:00 05/04/24 08:39 Insulin Aspart (*Bkc) 100 Units/Ml SUB-Q Not Given TIDWM [facility] Protocol Insulin Aspart 1 - 2 units 05/03/24 21:00 05/03/24 20:43 Insulin Aspart (*Bkc) 100 Units/Ml SUB-Q 1 units HS JUAN A Administration Protocol Insulin Glargine 12 units 05/03/24 12:00 05/04/24 08:37 Insulin Glargine (*Bkc) 100 Units/Ml 0.15 units/kg (12 units) 12 units SUB-Q Administration DAILY [facility] Lisinopril 5 mg 05/03/24 21:00 05/03/24 20:42 Lisinopril 5 Mg Tablet PO 5 mg HS JUAN A Administration Methylprednisolone Sodium Succinate 40 mg 05/03/24 12:00 05/04/24 05:06 Methylprednisolone Sod Succ 40 Mg Vial IV PUSH 40 mg Q6HR JUAN A Administration Radiology Results: ITS Impressions Chest CTA 05/02/24 15:28 IMPRESSION: 1. No pulmonary embolus. Sensitivity is moderately decreased by motion artifact. 2. Mild pulmonary edema. 3. Mild emphysema. 4. Moderate-sized bilateral loculated pleural effusions. Chest X-Ray 05/03/24 12:13 IMPRESSION: 1. Persistent small bilateral pleural effusions with associated atelectasis and/or pneumonia in the dependent lung zones. 2. Cardiomegaly. Labs Labs: Laboratory Results - last 24 hr 05/03/24 05/03/24 05/04/24 16:49 20:17 07:10 WBC 15.0 H RBC 3.38 L Hgb 9.7 L Hct 30.6 L MCV 90.5 D MCH 28.7 MCHC 31.7 L RDW 14.0 Plt Count 294 MPV 10.7 H Immature Gran % (Auto) 0.7 H Neut % (Auto) 90.0 H Lymph % (Auto) 7.0 L [place] % (Auto) 2.2 L Eos % (Auto) 0.0 Baso % (Auto) 0.1 L Lymph # (Auto) 1.05 [place] # (Auto) 0.3 Eos # (Auto) 0.0 Baso # (Auto) 0.0 Abs Immat Gran (auto) 0.10 H Absolute Neuts (auto) 13.5 H Absolute Nucleated RBC 0.000 Nucleated RBC % 0.0 Sodium 137 Potassium 4.9 Chloride 103 Carbon Dioxide 27 Anion Gap 7 BUN 50 H D Creatinine 2.49 H Estim Creat Clear Calc 17 Estimated GFR 25 L Glucose 197 H POC Capillary Glucose 191 H 247 H Calcium 9.0 Total Bilirubin 0.6 AST 20 ALT 21 Alkaline Phosphatase 85 Total Protein 6.0 L Albumin 3.5 05/04/24 08:03 WBC RBC Hgb Hct MCV MCH MCHC RDW Plt Count MPV Immature Gran % (Auto) Neut % (Auto) Lymph % (Auto) [place] % (Auto) Eos % (Auto) Baso % (Auto) Lymph # (Auto) [place] # (Auto) Eos # (Auto) Baso # (Auto) Abs Immat Gran (auto) Absolute Neuts (auto) Absolute Nucleated RBC Nucleated RBC % Sodium Potassium Chloride Carbon Dioxide Anion Gap BUN Creatinine Estim Creat Clear Calc Estimated GFR Glucose POC Capillary Glucose 200 H Calcium Total Bilirubin AST ALT Alkaline Phosphatase Total Protein Albumin
[2024-05-04 12:04] LABS: Glucose Point of Care 239 mg/dl (65-105)
[2024-05-04] MEDS: CEFEPIME 2 GM/NS 50 ML 2 GM/50 ML BAG IVPB (12:07)
[2024-05-04] MEDS: INSULIN ASPART (*BKC) 100 UNITS/ML SUB-Q (12:12)
--- NOTE | 2024-05-04 13:42 | P.PNNP_ITS ---
Progress Note: A&P Assessment and Plan (1) Chronic kidney disease, stage IV (severe): Code(s): N18.4 - Chronic kidney disease, stage 4 (severe) Status: Chronic Assessment and Plan: * recent creatinine has been running 1.8 - 2.5mg/dl * however, I wonder if the 1.8mg/dl reading was a dilutional value since he was not on diuretic therapy * his creatinine of 2.5mg/dl on last hospitalization was also when he was euvolemic (required diuresis on that hospital stay) * admission creatinine 1.94mg/dl -- now up to 2.49mg/dl * recheck renal ultrasound and serologies (ordered as outpatient but has not been done) * concerning that he did receive contrast with imaging in the ER * follow trend of repeat labs and UOP (2) Acute hypoxic respiratory failure: Code(s): J96.01 - Acute respiratory failure with hypoxia Status: Acute Assessment and Plan: * noted on admission * due to mild pulmonary edema + pleural effusion (and presumed CHF) * on diuretic therapy * wean supplemental oxygen * follow respiratory status (3) CHF (congestive heart failure): Code(s): I50.9 - Heart failure, unspecified Status: Acute Assessment and Plan: * suspect exacerbation of diastolic heart failure * elevated BNP noted on admission * CXR and CT of chest with pulmonary vascular congestion and bilateral pleural effusions * on IV lasix * follow I/Os and daily weights * Echo results noted: * echnically difficult study and would recommend repeat imaging if clinically indicated * left ventricle is normal in size and systolic function. * LVEF is preserved and visually estimated to be 50-55% * cannot rule the mildhypokinesis of the apical chatman and distal inferior wall * continue current therapy (4) Pleural effusion: Code(s): J90 - Pleural effusion, not elsewhere classified Status: Acute Assessment and Plan: * as noted on admission imaging * follow with current interventions * consider thoracentesis if no improvement with diuresis (5) Anemia: Code(s): D64.9 - Anemia, unspecified Status: Chronic Assessment and Plan: * due to CKD and possibly exacerbated by acute illness * follow trend of H/H (6) Diabetes mellitus: Code(s): E11.9 - Type 2 diabetes mellitus without complications Status: Chronic Assessment and Plan: * follow accu-cheks * glycemic control per hospitalist Will continue to follow. L Subjective Date/time seen: 05/04/24 13:42 Interval history: Follow-up for chronic kidney disease. Renal function/creatinine with abrupt decline noted in the last 24 hours although still making urine (albeit with IV diuretic therapy); reports feeling better in general but still requiring supplemental oxygen; no acute distress noted at the time of my visit Exam 2 Narrative: General: elderly but WD/WN male in NAD Heart: normal S1 and S2; no rub Lungs: coarse breath sounds; decreased at bases Abdomen: soft, nontender, nondistended, positive bowel sounds Extremities: no cyanosis or clubbing; trace edema Skin: warm and dry Objective Data Vital Signs Vital Signs: Vital Signs Temp Pulse Resp BP Pulse Ox O2 Del Method O2 Flow Rate 05/04/24 08:00 90 Nasal Cannula 2 05/04/24 06:40 97.5 F L 88 16 109/54 L 91 05/03/24 20:14 98.5 F 102 H 16 111/83 95 Intake/Output Intake/Output: Intake & Output 05/01/24 05/02/24 05/03/24 05/04/24 23:59 23:59 23:59 23:59 Intake Total 100 680 910 Output Total 950 Balance 100 -270 910 Meds/Results Medications: Active Medications Generic Name Dose Route Start Last Admin Trade Name Freq PRN Reason Stop Dose Admin Atorvastatin Calcium 80 mg 05/03/24 21:00 05/03/24 20:42 Atorvastatin 40 Mg Tablet PO 80 mg HS JUAN A Administration Dextrose 12.5 gm 05/03/24 01:33 Dextrose 50% 25 Gm/50 Ml Syringe IV PUSH PRN PRN Hypoglycemia Protocol Doxycycline Hyclate 100 mg 05/03/24 21:00 05/04/24 08:33 Doxycycline Hyclate 100 Mg Tablet PO 100 mg Q12HR JUAN A Administration Furosemide 40 mg 05/03/24 12:05 05/04/24 08:33 Furosemide Inj 40 Mg/4 Ml Vial IV PUSH 40 mg DAILY JUAN A Administration Glucose 15 gm 05/03/24 01:33 Glucose Oral Gel 15 Gm Of Glucse In 37.5 Gm Tube PO PRN PRN Hypoglycemia Protocol Dextrose 1,000 mls @ 100 mls/hr 05/03/24 01:33 Dextrose 5% 1,000 Ml IVPB PRN PRN Hypoglycemia Protocol Cefepime HCl 2 gm in 50 mls @ 100 mls/hr 05/03/24 12:00 05/04/24 12:07 Maxipime 2 Gm/Ns 50 Ml IVPB 100 mls/hr Q24H JUAN A Administration Insulin Aspart 2 - 5 units 05/03/24 08:00 05/04/24 12:12 Insulin Aspart (*Bkc) 100 Units/Ml SUB-Q 2 units TIDWM JUAN A Administration Protocol Insulin Aspart 1 - 2 units 05/03/24 21:00 05/03/24 20:43 Insulin Aspart (*Bkc) 100 Units/Ml SUB-Q 1 units HS JUAN A Administration Protocol Insulin Glargine 12 units 05/03/24 12:00 05/04/24 08:37 Insulin Glargine (*Bkc) 100 Units/Ml 0.15 units/kg (12 units) 12 units SUB-Q Administration DAILY [facility] Lisinopril 5 mg 05/03/24 21:00 05/03/24 20:42 Lisinopril 5 Mg Tablet PO 5 mg HS JUAN A Administration Methylprednisolone Sodium Succinate 40 mg 05/03/24 12:00 05/04/24 12:10 Methylprednisolone Sod Succ 40 Mg Vial IV PUSH 40 mg Q6HR JUAN A Administration Radiology Results: ITS Impressions Chest CTA 05/02/24 15:28 IMPRESSION: 1. No pulmonary embolus. Sensitivity is moderately decreased by motion artifact. 2. Mild pulmonary edema. 3. Mild emphysema. 4. Moderate-sized bilateral loculated pleural effusions. Chest X-Ray 05/03/24 12:13 IMPRESSION: 1. Persistent small bilateral pleural effusions with associated atelectasis and/or pneumonia in the dependent lung zones. 2. Cardiomegaly. Labs Labs: Laboratory Tests 05/04/24 07:10 05/04/24 07:10 Calcium 9.0 Total Bilirubin 0.6 AST 20 ALT 21 Alkaline Phosphatase 85 Total Protein 6.0 L Albumin 3.5 Microbiology 05/02/24 14:28 Blood Blood Culture - Preliminary
[2024-05-04 14:00] VITALS: BP 110/60; PULSE 90; RESP 20; TEMP 36.8; O2SAT 96
[2024-05-04 16:37] LABS: Glucose Point of Care 179 mg/dl (65-105)
[2024-05-04 20:00] VITALS: PULSE 90; RESP 20; O2SAT 96
[2024-05-04] MEDS: ATORVASTATIN 40 MG TABLET 80 MG PO (20:43)
[2024-05-04 23:09] VITALS: BP 108/58; PULSE 83; RESP 16; TEMP 36.4; O2SAT 94
[2024-05-04 23:19] LABS: Glucose Point of Care 192 mg/dl (65-105)
[2024-05-05] MEDS: methylPREDNISolone SOD SUCC 40 MG VIAL IV PUSH ×2 (04:47→12:00)
[2024-05-05 07:03] VITALS: BP 100/55; PULSE 76; RESP 14; TEMP 36.6; O2SAT 92
[2024-05-05 07:32] LABS: Albumin Level 3.2 g/dL (3.5-5.1); Anion Gap 10 mmol/L (4-12); Blood Urea Nitrogen 59 mg/dL (9-20); Calcium 8.8 mg/dL (8.4-10.2); Carbon Dioxide 26 mmol/L (22-30); Chloride 101 mmol/L (98-107); Creatine Kinase 62 U/L (55-170); Estimated CRCL calculation 16 ml/min; Estimated Glomerular Filt Rate 24; Glucose 174 mg/dL (65-110); Phosphorus 4.7 mg/dL (2.5-4.5); Potassium 4.8 mmol/L (3.4-5.0); Sodium 137 mmol/L (137-145)
[2024-05-05 07:47] LABS: Complement C3 123 mg/dL (88-165)
[2024-05-05 07:47] LABS: Rheumatoid Factor < 12.0 IU/ML (<12)
[2024-05-05 08:00] VITALS: O2SAT 93
[2024-05-05 08:37] LABS: Glucose Point of Care 185 mg/dl (65-105)
[2024-05-05] MEDS: DOXYCYCLINE HYCLATE 100 MG TABLET PO (08:53)
[2024-05-05] MEDS: INSULIN GLARGINE (*BKC) 100 UNITS/ML 12 UNITS SUB-Q (08:53)
[2024-05-05 09:08] LABS: Thyroid Stimulating Hormone Reflex 0.565 uIU/mL (0.465-4.68)
[2024-05-05 11:36] LABS: Glucose Point of Care 240 mg/dl (65-105)
[2024-05-05] MEDS: INSULIN ASPART (*BKC) 100 UNITS/ML SUB-Q (11:57)
[2024-05-05] MEDS: CEFEPIME 2 GM/NS 50 ML 2 GM/50 ML BAG IVPB (11:59)
--- NOTE | 2024-05-05 12:11 | P.PNNP_ITS ---
Progress Note: A&P Assessment and Plan (1) Chronic kidney disease, stage IV (severe): Code(s): N18.4 - Chronic kidney disease, stage 4 (severe) Status: Chronic Assessment and Plan: * based on last hospitalization, baseline creatinine runs around 1.8 - 2.5mg/dl * however, I wonder if the 1.8mg/dl reading (March 2024) was a dilutional value since he was not on diuretic therapy * his creatinine of 2.5mg/dl on last hospitalization was also when he achieved euvolemic (required diuresis on that hospital stay) * presumably due to diabetes, vascular disease, and age-related change * suspect need for diuretic therapy and possible CHF may be playing a role as well * check serologies to r/o other potential diseases (ordered as outpatient but not done) * concerning that he received contrast (CTA of chest) in the ER. * creatinine seems to be bouncing around within his usual range of 2-2.6. * Off oxygen * okay for discharge any time. He should make an appointment Dr. Vargas on goes office for follow-up (2) Acute hypoxic respiratory failure: Code(s): J96.01 - Acute respiratory failure with hypoxia Status: Acute Assessment and Plan: * improving * due to volume overload/pleural effusion * off IV diuretics * if discharge he should follow-up soon To determine if he needs oral diuretics. * follow respiratory status (3) CHF (congestive heart failure): Code(s): I50.9 - Heart failure, unspecified Status: Acute Assessment and Plan: * suspect exacerbation of diastolic heart failure * elevated BNP noted on admission * CXR and CT of chest with pulmonary vascular congestion and bilateral pleural effusions * off IV lasix * follow I/Os and daily weights * Echo results noted: * echnically difficult study and would recommend repeat imaging if clinically indicated * left ventricle is normal in size and systolic function. * LVEF is preserved and visually estimated to be 50-55% * cannot rule the mild hypokinesis of the apical chatman and distal inferior wall * continue current therapy (4) Pleural effusion: Code(s): J90 - Pleural effusion, not elsewhere classified Status: Acute Assessment and Plan: * as noted on admission imaging * follow with current interventions * consider thoracentesis if no improvement with diuresis (5) Anemia: Code(s): D64.9 - Anemia, unspecified Status: Chronic Assessment and Plan: * due to CKD and possibly exacerbated by acute illness * follow trend of H/H (6) Diabetes mellitus: Code(s): E11.9 - Type 2 diabetes mellitus without complications Status: Chronic Assessment and Plan: * follow accu-cheks * glycemic control per hospitalist . Subjective Date/time seen: 05/05/24 12:11 Interval history: is in the room Patient is feeling much better today. Exam Narrative: General: elderly but WD/WN male in NAD Heart: normal S1 and S2; no rub or gallop Lungs: coarse breath sounds; decreased at bases Abdomen: soft, nontender, nondistended, positive bowel sounds Extremities: no cyanosis or clubbing; trace edema Skin: no rash Objective Data Vital Signs Vital Signs: Vital Signs - 24 hr 05/04/24 14:00 05/04/24 20:00 05/04/24 23:09 Temperature 98.2 F 97.6 F Pulse Rate 90 90 83 Respiratory Rate 20 20 16 Blood Pressure 110/60 108/58 L Pulse Oximetry 96 96 94 Oxygen Delivery Nasal Cannula Oxygen Flow Rate 1.5 05/05/24 07:03 05/05/24 08:00 Temperature 97.8 F Pulse Rate 76 Respiratory Rate 14 Blood Pressure 100/55 L Pulse Oximetry 92 93 Oxygen Delivery Room Air Oxygen Flow Rate Intake/Output Intake/Output: Intake & Output 05/02/24 05/03/24 05/04/24 05/05/24 23:59 23:59 23:59 23:59 Intake Total 114 294 3429 440 Output Total 950 500 Balance 100 -270 950 440 Meds/Results Medications: Active Medications Generic Name Dose Route Start Last Admin Trade Name Freq PRN Reason Stop Dose Admin Atorvastatin Calcium 80 mg 05/03/24 21:00 05/04/24 20:43 Atorvastatin 40 Mg Tablet PO 80 mg HS JUAN A Administration Dextrose 12.5 gm 05/03/24 01:33 Dextrose 50% 25 Gm/50 Ml Syringe IV PUSH PRN PRN Hypoglycemia Protocol Doxycycline Hyclate 100 mg 05/03/24 21:00 05/05/24 08:53 Doxycycline Hyclate 100 Mg Tablet PO 100 mg Q12HR JUAN A Administration Glucose 15 gm 05/03/24 01:33 Glucose Oral Gel 15 Gm Of Glucse In 37.5 Gm Tube PO PRN PRN Hypoglycemia Protocol Dextrose 1,000 mls @ 100 mls/hr 05/03/24 01:33 Dextrose 5% 1,000 Ml IVPB PRN PRN Hypoglycemia Protocol Cefepime HCl 2 gm in 50 mls @ 100 mls/hr 05/03/24 12:00 05/05/24 11:59 Maxipime 2 Gm/Ns 50 Ml IVPB 100 mls/hr Q24H JUAN A Administration Insulin Aspart 2 - 5 units 05/03/24 08:00 05/05/24 11:57 Insulin Aspart (*Bkc) 100 Units/Ml SUB-Q 2 units TIDWM JUAN A Administration Protocol Insulin Aspart 1 - 2 units 05/03/24 21:00 05/04/24 23:16 Insulin Aspart (*Bkc) 100 Units/Ml SUB-Q Not Given HS REPLACED BY [facility] Protocol Insulin Glargine 12 units 05/03/24 12:00 05/05/24 08:53 Insulin Glargine (*Bkc) 100 Units/Ml 0.15 units/kg (12 units) 12 units SUB-Q Administration DAILY REPLACED BY [facility] Lisinopril 5 mg 05/03/24 21:00 05/03/24 20:42 Lisinopril 5 Mg Tablet PO 5 mg HS JUAN A Administration Methylprednisolone Sodium Succinate 40 mg 05/03/24 12:00 05/05/24 12:00 Methylprednisolone Sod Succ 40 Mg Vial IV PUSH 40 mg Q6HR JUAN A Administration Radiology Results: ITS Impressions Chest CTA 05/02/24 15:28 IMPRESSION: 1. No pulmonary embolus. Sensitivity is moderately decreased by motion artifact. 2. Mild pulmonary edema. 3. Mild emphysema. 4. Moderate-sized bilateral loculated pleural effusions. Renal Ultrasound 05/05/24 08:23 IMPRESSION: 1. Cortical thinning of the kidneys. No hydronephrosis. Chest X-Ray 05/05/24 08:52 IMPRESSION: 1. Small pleural effusions. Labs Labs: Laboratory Results - last 24 hr 0205/04/24 05/05/24 16:34 23:08 06:43 Sodium Potassium Chloride Carbon Dioxide Anion Gap BUN Creatinine Estim Creat Clear Calc Estimated GFR Glucose POC Capillary Glucose 179 H 192 H Calcium Phosphorus Total Creatine Kinase Albumin TSH (Reflex) Rheumatoid Factor < 12.0 Complement C3 Complement C4 05/05/24 05/05/24 05/05/24 06:50 08:26 11:31 Sodium 137 Potassium 4.8 Chloride 101 Carbon Dioxide 26 Anion Gap 10 BUN 59 H Creatinine 2.57 H Estim Creat Clear Calc 16 Estimated GFR 24 L Glucose 174 H POC Capillary Glucose 185 H 240 H Calcium 8.8 Phosphorus 4.7 H Total Creatine Kinase 62 Albumin 3.2 L TSH (Reflex) 0.565 Rheumatoid Factor Complement C3 123 Complement C4 31.2
[2024-05-05 14:00] VITALS: BP 120/62; PULSE 84; RESP 18; TEMP 36.6; O2SAT 97
--- NOTE | 2024-05-05 14:52 | PM.IMPN ---
Progress Note: A&P Assessment and Plan (1) Acute hypoxic respiratory failure: Code(s): J96.01 - Acute respiratory failure with hypoxia Status: Acute (2) Lactic acidosis: Code(s): E87.20 - Acidosis, unspecified Status: Acute (3) Pleural effusion: Code(s): J90 - Pleural effusion, not elsewhere classified Status: Acute Plan This is a pleasant 88-year-old male with a past medical history CKD stage 3, history of acute hypoxic respiratory failure due to pulmonary edema, history of NSTEMI patient opted for medical management, heart failure preserved ejection fraction hypertension, remote tobacco abuse, [id number] diabetes mellitus. 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 He was ultimately discharged without diuretics due to his elevated serum creatinine. Acute respiratory failure, community-acquired pneumonia, COPD exacerbation A few days prior to this admission he developed shortness of breath. Denies cough or fever or chest pain. Denies weight gain or leg swelling. ER course reveals normal temperature, respiratory of 22, 80% O2 saturation on room air, placed on 3 L nasal cannula. CTA chest was performed which demonstrated moderate-sized bilateral loculated pleural effusions, no PE, mild pulmonary edema, mild emphysema. Received Solu-Medrol Changed to Augmentin p.o. Acute respiratory failure with hypoxemia, ABG showed hypoxemic respiratory failure without CO2 retention Continue DuoNeb scheduled albuterol nebulizer p.r.n. Recent admission to the hospital, switch from azithromycin and ceftriaxone to doxycycline and cefepime. pt feels better today. Resolved, patient is on room air, CKD stage 4 Creatinine on the baseline Avoid nephrotoxic medications Follow-up BMP Consult licensed sales producer for evaluation treatment elevated Cr. 2.49 today patient's Cr is fluntuating 1.9 to 2.6 in past 1 year, not consistent with acute renal failure. hold Lasix now Creatinine 2.57 today stable Appreciate nephrology consultation Exacerbation of diastolic heart failure BNP 32210. X-ray shows pulmonary congestion and moderate pleural effusion Received Lasix 40 mg IV. trend weight and I/Os. Start Lasix 40 mg IV push daily Follow-up input output repeated echo showed 1. This is a very technically difficult study and would recommend repeat imaging if clinically indicated. 2. The left ventricle is normal in size and systolic function. Overall the LVEF is preserved and visually estimated to be 50-55%. Cannot rule the mild hypokinesis of the apical chatman and distal inferior wall. hold lasix now as elevated Cr Euvolemia Type 2 diabetes Lantus 12 unit daily Start insulin sliding scale a.c. and q.h.s. Resume home medication on discharge Chronic anemia No obvious bleeding Likely secondary to CKD Hemoglobin stable --- SCDs was DNR pt wants to change to full code now Patient family declines to be [facility] they insist to be discharged home, patient understand he has risk of fall that can results in catastrophic consequences Subjective Date/time seen: 05/05/24 14:52 Interval history: I saw and examined patient today, patient denies shortness of breath at rest, patient has good appetite, exercise tolerance increase, patient denies chest pain abdomen pain nausea vomiting diarrhea dysuria. Patient afebrile, blood pressure stable, patient is on room air. Labs reviewed Exam Narrative: GENERAL: Pleasant, in no acute distress. Well-nourished. - EYES: EOMI. Anicteric. - HENT: Moist mucous membranes. Heart hearing - LUNGS: Clear to auscultation bilaterally, no wheezing, rhonchi, or rales. - CARDIOVASCULAR: Regular rate and rhythm. No murmur. No JVD. - ABDOMEN: Soft, non-tender and non-distended. No palpable masses. - EXTREMITIES: No edema. Peripheral pulses 2+. Non-tender. - NEUROLOGIC: No focal neurological deficits. CN II-XII grossly intact. - PSYCHIATRIC: Awake, Alert and oriented x 3. Appropriate mood and affect. - SKIN: No rashes or lesions. Warm. - LYMPH: No cervical lymphadenopathy. Objective Data Vital Signs Vital Signs: Vital Signs - 24 hr 05/04/24 20:00 05/04/24 23:09 05/05/24 07:03 Temperature 97.6 F 97.8 F Pulse Rate 90 83 76 Respiratory Rate 20 16 14 Blood Pressure 108/58 L 100/55 L Pulse Oximetry 96 94 92 Oxygen Delivery Nasal Cannula Oxygen Flow Rate 1.5 05/05/24 08:00 Temperature Pulse Rate Respiratory Rate Blood Pressure Pulse Oximetry 93 Oxygen Delivery Room Air Oxygen Flow Rate Intake/Output Intake/Output: Intake & Output 05/02/24 05/03/24 05/04/24 05/05/24 23:59 23:59 23:59 23:59 Intake Total 749 459 3327 680 Output Total 950 500 Balance 100 -270 950 680 Meds/Results Medications: Active Medications Generic Name Dose Route Start Last Admin Trade Name Freq PRN Reason Stop Dose Admin Atorvastatin Calcium 80 mg 05/03/24 21:00 05/04/24 20:43 Atorvastatin 40 Mg Tablet PO 80 mg HS JUAN A Administration Dextrose 12.5 gm 05/03/24 01:33 Dextrose 50% 25 Gm/50 Ml Syringe IV PUSH PRN PRN Hypoglycemia Protocol Doxycycline Hyclate 100 mg 05/03/24 21:00 05/05/24 08:53 Doxycycline Hyclate 100 Mg Tablet PO 100 mg Q12HR JUAN A Administration Glucose 15 gm 05/03/24 01:33 Glucose Oral Gel 15 Gm Of Glucse In 37.5 Gm Tube PO PRN PRN Hypoglycemia Protocol Dextrose 1,000 mls @ 100 mls/hr 05/03/24 01:33 Dextrose 5% 1,000 Ml IVPB PRN PRN Hypoglycemia Protocol Cefepime HCl 2 gm in 50 mls @ 100 mls/hr 05/03/24 12:00 05/05/24 11:59 Maxipime 2 Gm/Ns 50 Ml IVPB 100 mls/hr Q24H JUAN A Administration Insulin Aspart 2 - 5 units 05/03/24 08:00 05/05/24 11:57 Insulin Aspart (*Bkc) 100 Units/Ml SUB-Q 2 units TIDWM JUAN A Administration Protocol Insulin Aspart 1 - 2 units 05/03/24 21:00 05/04/24 23:16 Insulin Aspart (*Bkc) 100 Units/Ml SUB-Q Not Given HS [facility] Protocol Insulin Glargine 12 units 05/03/24 12:00 05/05/24 08:53 Insulin Glargine (*Bkc) 100 Units/Ml 0.15 units/kg (12 units) 12 units SUB-Q Administration DAILY JUAN A Lisinopril 5 mg 05/03/24 21:00 05/03/24 20:42 Lisinopril 5 Mg Tablet PO 5 mg HS JUAN A Administration Methylprednisolone Sodium Succinate 40 mg 05/03/24 12:00 05/05/24 12:00 Methylprednisolone Sod Succ 40 Mg Vial IV PUSH 40 mg Q6HR JUAN A Administration Radiology Results: ITS Impressions Chest CTA 05/02/24 15:28 IMPRESSION: 1. No pulmonary embolus. Sensitivity is moderately decreased by motion artifact. 2. Mild pulmonary edema. 3. Mild emphysema. 4. Moderate-sized bilateral loculated pleural effusions. Renal Ultrasound 05/05/24 08:23 IMPRESSION: 1. Cortical thinning of the kidneys. No hydronephrosis. Chest X-Ray 05/05/24 08:52 IMPRESSION: 1. Small pleural effusions. Labs Labs: Laboratory Results - last 24 hr 05/04/24 05/04/24 05/05/24 16:34 23:08 06:43 Sodium Potassium Chloride Carbon Dioxide Anion Gap BUN Creatinine Estim Creat Clear Calc Estimated GFR Glucose POC Capillary Glucose 179 H 192 H Calcium Phosphorus Total Creatine Kinase Albumin TSH (Reflex) Rheumatoid Factor < 12.0 Complement C3 Complement C4 05/05/24 05/05/24 05/05/24 06:50 08:26 11:31 Sodium 137 Potassium 4.8 Chloride 101 Carbon Dioxide 26 Anion Gap 10 BUN 59 H Creatinine 2.57 H Estim Creat Clear Calc 16 Estimated GFR 24 L Glucose 174 H POC Capillary Glucose 185 H 240 H Calcium 8.8 Phosphorus 4.7 H Total Creatine Kinase 62 Albumin 3.2 L TSH (Reflex) 0.565 Rheumatoid Factor Complement C3 123 Complement C4 31.2
--- NOTE | 2024-05-05 14:54 | PM.DS ---
DS: Admitting Diagnosis Discharge Date 05/05/24 Admitting Diagnosis (1) Acute hypoxic respiratory failure: Code(s): J96.01 - Acute respiratory failure with hypoxia Status: Acute (2) Lactic acidosis: Code(s): E87.20 - Acidosis, unspecified Status: Acute (3) Pleural effusion: Code(s): J90 - Pleural effusion, not elsewhere classified Status: Acute DS: Discharge Diagnosis Discharge Diagnosis (1) Acute hypoxic respiratory failure: Code(s): J96.01 - Acute respiratory failure with hypoxia Status: Acute (2) Lactic acidosis: Code(s): E87.20 - Acidosis, unspecified Status: Acute (3) Pleural effusion: Code(s): J90 - Pleural effusion, not elsewhere classified Status: Acute DS: Summary Hospital Course Hospital Course: This is a pleasant 88-year-old male with a past medical history CKD stage 3, history of acute hypoxic respiratory failure due to pulmonary edema, history of NSTEMI patient opted for medical management, heart failure preserved ejection fraction hypertension, remote tobacco abuse, uca-wmlpkuw-aerxfemzf diabetes mellitus. 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 He was ultimately discharged without diuretics due to his elevated serum creatinine. The following med issues have been addressed during hospitalization Acute respiratory failure, community-acquired pneumonia, COPD exacerbation A few days prior to this admission he developed shortness of breath. Denies cough or fever or chest pain. Denies weight gain or leg swelling. ER course reveals normal temperature, respiratory of 22, 80% O2 saturation on room air, placed on 3 L nasal cannula. CTA chest was performed which demonstrated moderate-sized bilateral loculated pleural effusions, no PE, mild pulmonary edema, mild emphysema. Recent admission to the hospital, switch from azithromycin and ceftriaxone to doxycycline and cefepime. Received Solu-Medrol Chronic patient on room air, Continue prednisone on tapering dose Continue cefdinir p.o. Symbicort 2 puffs b.i.d., albuterol nebulizer Q 4 p.r.n. Acute respiratory failure with hypoxemia, ABG showed hypoxemic respiratory failure without CO2 retention Continue DuoNeb scheduled albuterol nebulizer p.r.n. Resolved, patient on room air CKD stage 4 Creatinine on the baseline Avoid nephrotoxic medications Follow-up BMP Consult mortgage protection specialist for evaluation treatment elevated Cr. 2.49 today patient's Cr is fluntuating 1.9 to 2.6 in past 1 year, not consistent with acute renal failure. hold Lasix now On the baseline Consultation Exacerbation of diastolic heart failure BNP 96193. X-ray shows pulmonary congestion and moderate pleural effusion Received Lasix 40 mg IV. trend weight and I/Os. Start Lasix 40 mg IV push daily Follow-up input output repeated echo showed 1. This is a very technically difficult study and would recommend repeat imaging if clinically indicated. 2. The left ventricle is normal in size and systolic function. Overall the LVEF is preserved and visually estimated to be 50-55%. Cannot rule the mild hypokinesis of the apical chatman and distal inferior wall. hold lasix now as elevated Cr now patient is euvolemic Type 2 diabetes Lantus 12 unit daily Start insulin sliding scale a.c. and q.h.s. Resume home medication on discharge Chronic anemia No obvious bleeding Likely secondary to CKD Stable Discharge patient home Time Spent with Patient Time attestation: Total time spent providing and/or coordinating discharge services: Exam Narrative: GENERAL: Pleasant, in no acute distress. Well-nourished. - EYES: EOMI. Anicteric. - HENT: Moist mucous membranes. - LUNGS: Clear to auscultation bilaterally, no wheezing, rhonchi, or rales. - CARDIOVASCULAR: Regular rate and rhythm. No murmur. No JVD. - ABDOMEN: Soft, non-tender and non-distended. No palpable masses. - EXTREMITIES: No edema. Peripheral pulses 2+. Non-tender. - NEUROLOGIC: No focal neurological deficits. CN II-XII grossly intact. - PSYCHIATRIC: Awake, Alert and oriented x 3. Appropriate mood and affect. - SKIN: No rashes or lesions. Warm. - LYMPH: No cervical lymphadenopathy. DS: Data Data Completed and Pending Labs on day of discharge: Labs from last 24 hours 05/05/24 05/05/24 05/05/24 11:31 08:26 06:50 Sodium Potassium Chloride Carbon Dioxide Anion Gap BUN Creatinine Estim Creat Clear Calc Estimated GFR Glucose POC Capillary Glucose 240 H 185 H Calcium Phosphorus Total Creatine Kinase Total Protein Albumin Pending Xpcxt-9-Trngqreor Pending Thlcr-0-Vazcemjsm Pending Mtrg-1-Jdqvggae Pending Hmhw-7-Ojikwmti Pending Gamma Globulins Pending Abnorm Protein Band 1 Pending Abnorm Protein Band 3 Pending PEP Interpretation Pending TSH (Reflex) 0.565 Rheumatoid Factor DUNCAN Screen Pending ANCA Screen Pending CHAPLAIN Antibody Pending Anti-DNA Antibody Pending Glomerular Base Memb Ab Pending Complement C3 123 Complement C4 31.2 [place]/Lambda Ratio Pending Free [place] Light Chains Pending Free Lambda Light Chain Pending 05/05/24 05/05/24 05/04/24 06:50 06:43 23:08 Sodium 137 Potassium 4.8 Chloride 101 Carbon Dioxide 26 Anion Gap 10 BUN 59 H Creatinine 2.57 H Estim Creat Clear Calc 16 Estimated GFR 24 L Glucose 174 H POC Capillary Glucose 192 H Calcium 8.8 Phosphorus 4.7 H Total Creatine Kinase 62 Total Protein Pending Albumin 3.2 L Alafq-8-Icoerrgtm Rmnkw-8-Sstpqigcl Tayy-3-Kpqorbek Kulo-2-Auxdegvz Gamma Globulins Abnorm Protein Band 1 Abnorm Protein Band 3 PEP Interpretation TSH (Reflex) Rheumatoid Factor < 12.0 DUNCAN Screen ANCA Screen CHAPLAIN Antibody Anti-DNA Antibody Glomerular Base Memb Ab Complement C3 Complement C4 [place]/Lambda Ratio Free [place] Light Chains Free Lambda Light Chain 05/04/24 16:34 Sodium Potassium Chloride Carbon Dioxide Anion Gap BUN Creatinine Estim Creat Clear Calc Estimated GFR Glucose POC Capillary Glucose 179 H Calcium Phosphorus Total Creatine Kinase Total Protein Albumin Cglcz-0-Llihizkgr Zqlsm-7-Mhiehdgbm Pwcm-6-Ypnmadvc Fuun-1-Emjgpeef Gamma Globulins Abnorm Protein Band 1 Abnorm Protein Band 3 PEP Interpretation TSH (Reflex) Rheumatoid Factor DUNCAN Screen ANCA Screen CHAPLAIN Antibody Anti-DNA Antibody Glomerular Base Memb Ab Complement C3 Complement C4 [place]/Lambda Ratio Free [place] Light Chains Free Lambda Light Chain Preliminary micro results at discharge 05/02/24 14:28 Blood Culture - Preliminary Blood Discharge Plan Discharge Attending physician on discharge: Jacky Gold Consulting providers: Denton Lauerano Discharging Clinician: Jacky Gold Anticipated Discharge Date/Time: 05/05/24 15:47 Patient Disposition: Home, Self-Care Activity: as tolerated Diet: as tolerated and heart healthy Patient Instructions: Antibiotic Form, Heart Failure (DC) Patient Language: Amharic Stand Alone Forms: General Discharge Information Follow-up/Referrals: Krishna Conti MD [Primary Care Provider] - (See primary care doctor in 1 week) Discharge Medications: New cefdinir 300 mg capsule 300 mg PO Q12H Qty: 10 0RF prednisone 10 mg tablet 10 mg PO DIRECTED Qty: 14 0RF Rx Instructions: see taper instructions 40 mg daily p.o. x2 day 20 mg daily p.o. x2 day 10 mg daily p.o. x2 day albuterol sulfate [Ventolin HFA] 90 mcg/actuation HFA aerosol inhaler 2 puff inhalation QID PRN (Reason: shortness of breath or wheezing) Qty: 8.5 1RF budesonide-formoterol [Symbicort] 80-4.5 mcg/actuation HFA aerosol inhaler 2 puff inhalation Q12H Qty: 10.2 1RF Continued aspirin 81 mg Tablet,Delayed Release (Dr/Ec) 81 mg PO QAM Qty: 90 0RF albuterol sulfate 90 mcg/actuation HFA aerosol inhaler 1 puff INHALATION Q4H PRN (Reason: shortness of breath or wheezing) lisinopril 5 mg tablet 5 mg PO HS glimepiride 1 mg tablet 0.5 mg PO DAILY atorvastatin 40 mg tablet 80 mg PO HS Rx Instructions: please start taking 40 mg daily as your insurance denying 80 mg. You will need to take 80 mg daily as recommended per cardiology- please make sure you discuss it with cardiology when you follow up with them (DME) FreeStyle Curtis 3 Plus Sensor Device MISCELLANEOUS Discontinued prednisone 20 mg tablet 60 mg PO DAILY Date of admission: 05/03/24 17:22 Primary Care Provider: Krishna Conti Admitting Provider: Jass Peter Attending physician on admission: Jass Peter Condition: Stable
[2024-05-05 15:34] LABS: Urea Random Urine 1361 MG/DL
[2024-05-05 15:35] LABS: Creatinine Urine 177.2 mg/dL; Total Protein Urine Random 23 mg/dL; Ur Ttl Prot Creatinine Ratio 0.13 mg/mg (0-0.20)
[2024-05-05 15:35] LABS: Sodium Urine Random 17 meq/L; Total Protein Urine Random 23 mg/dL
[2024-05-05 15:37] LABS: Creatinine Urine 169.1 mg/dL
[2024-05-05 16:04] LABS: Eosinophil Urine None Seen % (None Seen); Urine Eos QC 2nd Tech Confirmed
[2024-05-07 03:03] LABS: Protein, Total 5.6 g/dL (6.1-8.1)
[2024-05-07 07:34] LABS: Creatinine, Random Urine 164 mg/dL (20-320); Total Prot/Creat ratio mg/mg 0.323 (0.025-0.148); Total Protein/Creatinine Ratio 323 mg/g creat (25-148)
[2024-05-08 13:48] LABS: RNP Antibodies <1.0 NEG AI (<1.0 NEG)
[2024-05-08 15:03] LABS: Kappa\\Lambda Light Chains 0.95 (0.26-1.65); Lambda Light Chain 19.3 mg/L (5.7-26.3)
[2024-05-08 16:34] LABS: Anti Glomerular Basement Memb <1.0 AI
[2024-05-08 19:59] LABS: Albumin 3.1 g/dL (3.8-4.8); Alpha 1 Globulin 0.3 g/dL (0.2-0.3); Alpha 2 Globulin 0.8 g/dL (0.5-0.9); Beta 1 Globulin 0.4 g/dL (0.4-0.6); Gamma Globulin 0.6 g/dL (0.8-1.7)
[2024-05-09 13:04] LABS: ANCA Screen NEGATIVE (NEGATIVE)
== END 2024-05-05 16:49 | disposition home or self-care (01) | DRG 189 ==
LOC: ANHED 17:02 → ANH3MEDSUR 17:24
PROVIDERS: General Practice; Internal Medicine Nephrology; Student in an Organized Health Care Education/Training Program; Admitting Provider Internal Medicine; Emergency Provider Emergency Medicine; PCP Emergency Medicine; Visit Provider Hospitalist
DX: J96.01 Acute respiratory failure with hypoxia (principal); I50.31 Acute diastolic (congestive) heart failure; I13.0 Hypertensive heart and chronic kidney disease with heart failure and stage 1 through stage 4 chronic kidney disease, or unspecified chronic kidney disease; N18.4 Chronic kidney disease, stage 4 (severe); E11.22 Type 2 diabetes mellitus with diabetic chronic kidney disease; D63.1 Anemia in chronic kidney disease; I25.2 Old myocardial infarction; I25.10 Atherosclerotic heart disease of native coronary artery without angina pectoris; J43.9 Emphysema, unspecified; Z79.84 Long term (current) use of oral hypoglycemic drugs; Z87.891 Personal history of nicotine dependence; Z88.0 Allergy status to penicillin; Z20.822 Contact with and (suspected) exposure to COVID-19
CPT/HCPCS: 36415; 71045; 71046; 71275; 76775; 80048; 80053; 80069; 81050; 82550; 82570; 82948; 83520; 83605; 83880; 83883; 84155; 84156; 84165; 84166; 84300; 84443; 84540; 85025; 85055; 85380; 85610; 85999; 86036; 86038; 86039; 86160; 86225; 86235; 86430; 87040; 87637; 87641; 93005; 94640; 96365; 96367; 96375; 96376; 99285; A9270; C8929; G0378; J0692; J0696; J1815; J1836; J1940; J2919; Q9957; Q9967

== ENCOUNTER 2024-05-20 09:57 | Outpatient (CLI) | payer MEDICARE, SELFPAY ==
[2024-05-20 10:32] LABS: Anion Gap 10 mmol/L (4-12); Blood Urea Nitrogen 43 mg/dL (9-20); Calcium 8.9 mg/dL (8.4-10.2); Carbon Dioxide 28 mmol/L (22-30); Chloride 103 mmol/L (98-107); Estimated Glomerular Filt Rate 29; Glucose 116 mg/dL (65-110); Potassium 4.3 mmol/L (3.4-5.0); Sodium 141 mmol/L (137-145)
== END 2024-05-20 09:58 | disposition home or self-care (01) ==
LOC: ANHLAB 09:58
PROVIDERS: PCP Emergency Medicine; Visit Provider Internal Medicine
DX: I50.32 Chronic diastolic (congestive) heart failure (principal)
CPT/HCPCS: 36415; 80048

== ENCOUNTER 2024-05-30 12:14 | Outpatient (CLI) | payer MEDICARE, SELFPAY ==
[2024-05-30 12:59] LABS: Albumin Level 3.9 g/dL (3.5-5.1); Anion Gap 11 mmol/L (4-12); Blood Urea Nitrogen 49 mg/dL (9-20); Calcium 9.2 mg/dL (8.4-10.2); Carbon Dioxide 28 mmol/L (22-30); Chloride 105 mmol/L (98-107); Estimated Glomerular Filt Rate 26; Glucose 120 mg/dL (65-110); Phosphorus 3.8 mg/dL (2.5-4.5); Sodium 144 mmol/L (137-145)
[2024-05-30 13:01] LABS: Creatinine Urine 113.7 mg/dL; Total Protein Urine Random 21 mg/dL; Ur Ttl Prot Creatinine Ratio 0.18 mg/mg (0-0.20)
[2024-05-30 13:05] LABS: Complement C3 145 mg/dL (88-165)
[2024-05-30 13:10] LABS: Parathyroid Intact 119.9 pg/mL (14.5-75.2)
--- OUTSIDE RECORDS SUMMARY | 2024-05-30 13:35 | XMS_ITS | Continuity of Care Document ---
Author Organization [facility] Address [address] [place] [address] Phone Care Team Providers Care Evaluation Engineer Name Role Phone Krishna Conti MD Unavailable Unavailable Allergies, Adverse Reactions, Alerts Substance Reaction Status Criticality PENICILLIN Hives / Skin Rash Active No Informa tion Medications Medication Instructions Dosage Effective Dates (start - stop) Status Comments albuterol sulfate HFA 90 mcg/actuation aerosol inhaler inhale 1 puff by inhalation route every 4 - 6 hours as needed as needed 1 puff - Active PRN for sob lisinopril 5 mg tablet take 1 tablet by oral route every day 5 MG - Active glimepiride 1 mg tablet take 1 tablet by oral route every day 1 MG - Active take before major meal FreeStyle Curtis 3 Plus Sensor device apply to upper arm and change every 14 days - Active FreeStyle Curtis 3 [place] use with freestyle curtis 3 plus sensor [...] Providers Copied on Encounter OFFICE/OUTPA TIENT VISIT, [facility], [address], [place], [place], [address], [place] tel:[phone] [facility] respirator y1 (chief complaint) Acute respiratory failure with hypoxiaChronic kidney disease, stage 4 (severe) 5 Gall[address] Keller. [address], [place], [place], [address] , [place]. tel:[phone] OFFICE/OUTPA TIENT VISIT, [facility], [address], [place], [place], [id number], [place] tel:[phone] [facility] DM (chief complaint) cough1 (chief complaint) Type 2 diabetes mellitus without complicationsAcute bronchitis 5 Gallito Keller. [address], [place], [place], [address] , [place]. tel:[phone] OFFICE/OUTPA TIENT VISIT, [facility], [address], [place], [place], [address], [place] tel:[phone] [facility] DM (chief complaint) back pain1 (chief complaint) renal failure1 (chief complaint) Type 2 diabetes mellitus without complicationsChroni c pain syndromeNevus, non-neoplasticAcute kidney failure 5 Gallito Keller. [address], [place], [place], [address] , [place]. tel:[phone] OFFICE/OUTPA TIENT VISIT, [facility], [address], [place], [place], [address], [place] tel:[phone] [facility] DM (chief complaint) renal disease1 (chief complaint) HF (chief complaint) skin1 (chief complaint) Acute kidney failureCardiac failureEssential (primary) hypertensionType 2 diabetes mellitus without complicationsNevus, non-neoplastic 4 Gallito Keller. [address], [place], [place], [address] , [place]. tel:[phone] [facility], [address], [place], [place], [address], [place] tel:[phone] [facility] No Information 4 Gallito Keller. [address], [place], [place], [address] , [place]. tel:[phone] OFFICE/OUTPA TIENT VISIT, EST [facility], [address], [place], [place], [address], [place] tel:[phone] [facility] CHF1 (chief complaint) Type 2 diabetes mellitus without complicationsAcute kidney failureCardiac failureEssential (primary) hypertension 4 Gallito Keller. [address], [place], [place], [address] , [place]. tel:[phone] PREV VISIT, NEW, 65 & OVER [facility], [address], [place], [place], [address], [place] tel:[phone] [facility] physical (chief complaint) Encounter for general adult medical examination without abnormal findings 4 Gallito Keller. [address], [place], [place], [address] , [place]. tel:[phone] Family History Family Member Type Diagnosis Age At Onset Sister Problem 93, still alive, but very si ck due to old age Brother Problem of sinus cancer 85 Father Problem of alcohol related 72 Mother Problem 52 due to unknown [place] Payers Payer name Insurance type Covered constitution party ID Rhonda devries(s) [employer] Medicare CI [id number] Social History Type Description Quantity Date Captured Comments Alcohol Use Details 2 drinks yearly Caffeine Use Details Unknown Tobacco Use Status Ex-cigarette smoker 025 Smoking Status Former smoker Sex Male Vital Signs Date / Time: Height Weight BMI Pulse Rate Blood Pressure Temperature Respiratory Rate Body Surface Area Head Circumference BMI percentile Pulse Ox Inhaled Ox 4:43 PM 65.00 in 174.80 lbs 29.0 9 kg/m eter (2) 72 /min 120/72 mm[Hg] 97.3 F 16 /min 97 21 Chief Complaint And Reason For Visit From encounter dated '05/08/2024 16:31'. respiratory1 (chief complaint). Description: Pt was admitted to hospital 5 days ago due to acute respiratory failure with hypoxia due to fluid overload. Pt underwent diuresis, which stopped due to chronic renal disease. pt had cardiac echo done which showed preserved LVEF. Pt sees nephrology as outpatient. Pt also sees cardiology but he did not see the pst supervisor during inpatient stay. Pt currently denies any worsening sob. Pt denies any chest pain Plan Of Treatment Date Type Action Status Referral Ordered: Endocrinology, Diabetes and Metabolism (related to Type 2 diabetes mellitus without complications) ordered Referral Ordered: Referrals: Endocrinology, Diabetes and Metabolism. Evaluate and treat ordered Referral Ordered: Dermatology (related to Nevus, non-neoplastic) ordered Referral Ordered: Referrals: Dermatology. Evaluate and treat ordered Appointment Vincent Wade (Bill) History Of Present Illness Encounter Date Complaint History Of Prese nt Illness respiratory1 Pt was admitted to hospital 5 days ago due to acute respiratory failure with hypoxia due to fluid overload. Pt underwent diuresis, which stopped due to chronic renal disease. pt had cardiac echo done which showed preserved LVEF. Pt sees nephrology as outpatient. Pt also sees cardiology but he did not see the pst supervisor during inpatient stay. Pt currently denies any worsening sob. Pt denies any chest pain cough1 Pt c/o acute dry cough, chest congestion, winded for 5 days Pt denies any fever, chill, sore throat Pt has mild sinus congestion as well DM Pt has DM pt is on 0.5 mg amaryl in the morning and he no longer has night time hypoglycemia. his glucose is around 150s during the day. DM Pt has DM pt yamilex es amaryl 1 mg in the morning and his glucose is around 120 during the day but his glucose drops frequently down to 50s at night which occasionally makes him dizzy. Pt even tried to eat something before bedtime but it still happens. 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 Pt has hard time walking more than 10 yards without any back pain renal failure1 Pt has chronic s tage III renal disease Pt is seeing nephrology Pt had lab done earlier this month which showed improving renal function and creatine. Pt has normal UO skin1 Pt notices a sma ll recurrent scab left chin area for 6 weeks with bleeding whenever he shaves. HF Pt has recent HF . Pt denies any swelling Pt is on lipitor and lisinopril Pt saw pst supervisor recently and was told to continue meds and follow up in 3 months renal disease1 pt has stage III renal disease .Pt is on lisinopril Pt has normal UO .Pt saw transmission rebuilder and he will do some lab work [...] No Information Assessments Type Assessment Date assessment Acute respiratory failure with h ypoxia assessment Chronic kidney disease, stage 4 (severe) Mental Status Date Cognitive Assessment Orientation - [place] ed to time, place, person, situation.
--- OUTSIDE RECORDS SUMMARY | 2024-05-30 13:35 | XMS_ITS | Referral Summary ---
Author Organization [facility] Address [address] [place] [address] Care Team Providers Care Molding Line Operator Name Role Phone Akash Saavedra MD Unavailable Feliciano Benitez MD Unavailable [phone] Krishna Conti MD Primary Care Provider [phone] Encounters Date Type Department Care Team Description 05/22/2024 Telephone [facility] Cardiology [address] [place] [phone] Gabriela Nance MD 05/11/2024 9:00 AM WINDER CONTORT OPERATOR Office Visit [facility] Cardiology [address] [facility] [address] [place] [phone] Gabriela Nance MD Chronic heart failure with preserved ejection fraction (HCC) (Primary Dx); Coronary artery disease involving [place] coronary artery of [place] heart without angina pectoris; Essential hypertension; Mixed hyperlipidemia; Stenosis of carotid artery, unspecified laterality 03/16/2024 Telephone [facility] Cardiology [address] [place] [phone] Gabriela Nance MD from Last 3 Months Allergies Active Allergy Reactions Criticality Noted Date Comments Penicillins Hives,Urticaria High 01/25/2012 Medications aspirin 81 mg enteric coated tablet Take 1 tablet (81 mg total) by mouth every morning 01/27/2024 Active glimepiride (AMARYL) 1 mg tablet Take 0.5 tablets (0.5 mg total) by mouth daily 02/03/2024 Active lisinopriL (PRINIVIL,ZESTR IL) 5 mg tablet Take 1 tablet (5 mg total) by mouth daily 02/03/2024 Active atorvastatin (LIPITOR) 80 mg tablet Take 1 tablet (80 mg total) by mouth daily 90 tablet 3 03/16/2024 Active albuterol HFA (PROVENTIL HFA,VENTOLIN HFA,PROAIR HFA) 90 mcg/actuation inhaler Inhale 1 puff every 4 hours 05/01/2024 Active budesonide-form oteroL (SYMBICORT) 80-4.5 mcg/actuation inhaler INHALE 2 PUFFS EVERY 12 HOURS 05/05/2024 Active furosemide (LASIX) 40 mg tablet Take 1 tablet (40 mg total) by mouth daily 30 tablet 11 05/11/2024 Active Active Problems Problem Noted Date Diagnosed Date Chronic heart failure with preserved ejection fr action 05/11/2024 Coronary artery disease invo lving [place] coronary artery of [place] heart without angina pectoris 05/11/2024 Essential hypertension 05/11/2024 Mixed hyperlipidemia 05/11/2024 Stenosis of carotid artery 05/11/2024 Entropion of right eyelid 10/21/2022 Bladder stone 08/25/2021 Overview (08/25/2021): Added automatically from request for surgery [id number] Social History Tobacco Use Types Packs/Day Years [...] on file Legal Sex Male 5:10 PM WINDER CONTORT OPERATOR Gender Identity Not on file Sexual Orientation Not on file Last Filed Vital Signs Vital Sign Reading Time Taken Comments Blood Pressure 104/58 05/11/2024 9:00 AM WINDER CONTORT OPERATOR Pulse 77 05/11/2024 9:00 AM WINDER CONTORT OPERATOR Temperature 35.8 C (96.4 F) 10/26/2022 2:20 PM CDT Respiratory Rate 22 10/26/2022 2:50 PM CDT Oxygen Saturation 91% 05/11/2024 9:00 AM WINDER CONTORT OPERATOR Inhaled Oxygen Concentration - - Weight 76 kg (167 lb 8 oz) 05/11/2024 9:00 AM CS T Height 165.1 cm (5' 5 ) 05/11/2024 9:00 AM WINDER CONTORT OPERATOR Body Mass Index 27.87 05/11/2024 9:00 AM WINDER CONTORT OPERATOR Plan of Treatment Not on file Insurance MEDICARE [facility] TRADITIONAL AET[employer] MEDICARE GOLD Care Teams Molding Line Operator Relationship Specialty Start Date End Date Krishna Conti MD [address] [facility] 20 [place] [address] PCP - General Family Medicine 02/14/24 Aaksh Saavedra MD 112 [facility] 12 [place] [address] Consulting Physician Urology 09/11/21 Feliciano Benitez MD [address] DEPT OPHTHALMOLOGY, [facility] [address] [place] [address] Surgeon Ophthalmology 10/26/22
--- OUTSIDE RECORDS SUMMARY | 2024-05-30 13:35 | XMS_ITS | Clinical Summary ---
Author Organization [facility] Address [address] [place] [address] Care Team Providers Care Printed Circuit Board Assembler Name Role Phone Akash Saavedra MD Unavailable Feliciano Benitez MD Unavailable [phone] Krishna Conti MD Primary Care Provider Allergies [...] daily 90 tablet 3 03/16/2024 5 Active albuterol HFA (PROVENTIL HFA,VENTOLIN HFA,PROAIR HFA) 90 mcg/actuation inhaler Inhale 1 puff every 4 hours 05/01/2024 Active budesonide-form oteroL (SYMBICORT) 80-4.5 mcg/actuation inhaler INHALE 2 PUFFS EVERY 12 HOURS 05/05/2024 Active furosemide (LASIX) 40 mg tablet Take 1 tablet (40 mg total) by mouth daily 30 tablet 11 05/11/2024 6 Active Active Problems Problem Noted Date Diagnosed Date Chronic heart failure with preserved ejection fr action 05/11/2024 Coronary artery disease invo lving [place] coronary artery of [place] heart without angina pectoris 05/11/2024 Essential hypertension 05/11/2024 Mixed hyperlipidemia 05/11/2024 Stenosis of carotid artery 05/11/2024 Entropion of right eyelid 10/21/2022 Bladder stone 08/25/2021 Overview (08/25/2021): Added automatically from request for surgery [id number] Encounters Date Type Department Care Team Description 05/22/2024 Telephone [facility] Medical [facility] Cardiology [address] [place] [phone] Gabriela Nance MD 05/11/2024 9:00 AM FISHING VESSEL CAPTAIN Office Visit [facility] Medical [facility] Cardiology [address] [place] [phone] Gabriela Nance MD Chronic heart failure with preserved ejection fraction (HCC) (Primary Dx); Coronary artery disease involving [place] coronary artery of [place] heart without angina pectoris; Essential hypertension; Mixed hyperlipidemia; Stenosis of carotid artery, unspecified laterality 03/16/2024 Telephone [facility] Cardiology [address] [place] [phone] Gabriela Nance MD from Last 3 [...] on file Legal Sex Male 5:10 PM FISHING VESSEL CAPTAIN Gender Identity Not on file Sexual Orientation Not on file Obstetrics History Last Filed Vital Signs Vital Sign Reading Time Taken Comments Blood Pressure 104/58 05/11/2024 9:00 AM FISHING VESSEL CAPTAIN Pulse 77 05/11/2024 9:00 AM FISHING VESSEL CAPTAIN Temperature 35.8 C (96.4 F) 10/26/2022 2:20 PM CDT Respiratory Rate 22 10/26/2022 2:50 PM CDT Oxygen Saturation 91% 05/11/2024 9:00 AM FISHING VESSEL CAPTAIN Inhaled Oxygen Concentration - - Weight 76 kg (167 lb 8 oz) 05/11/2024 9:00 AM CS T Height 165.1 cm (5' 5 ) 05/11/2024 9:00 AM FISHING VESSEL CAPTAIN Body Mass Index 27.87 05/11/2024 9:00 AM FISHING VESSEL CAPTAIN Plan of Treatment Health Maintenance Due Date Last Done Comments Depression Screening 1936 DTaP/Tdap/Td Vaccine (1 - Tdap) 10/26/1947 Hepatitis B Screening 1953 Pneumococcal vaccine 65+ (1 of 2 - PCV) 10/26/1955 Zoster Vaccine (1 of 2) 1986 Well Visit 65+ 2001 Fall Risk Assessment 10/27/2023 10/26/2022 Covid-19 Vaccine (3 - season) 2023, 04/15/2020 Influenza Vaccine (#1) 2023 Insurance [facility]ICARE [facility] MEDICARE GOLD Care Teams Printed Circuit Board Assembler Relationship Specialty Start Date End Date Krishna Conti MD [address] [place] [address] PCP - General Family Medicine 02/14/24 Akash Saavedra MD 112 [facility] 12 [place] [address] Consulting Physician Urology 09/11/21 Feliciano Benitez MD [address] DEPT OPHTHALMOLOGY, [facility] [address] [place] [address] Surgeon Ophthalmology 10/26/22
[2024-05-30 14:13] LABS: Vitamin D 25 Hydroxy 23.9 ng/mL
[2024-05-31 11:38] LABS: Protein, Total 6.5 g/dL (6.1-8.1)
[2024-06-01 20:23] LABS: Albumin 3.4 g/dL (3.8-4.8); Alpha 1 Globulin 0.4 g/dL (0.2-0.3); Beta 1 Globulin 0.5 g/dL (0.4-0.6); Gamma Globulin 0.7 g/dL (0.8-1.7)
== END 2024-05-30 12:15 | disposition home or self-care (01) ==
PROVIDERS: PCP Emergency Medicine; Visit Provider Internal Medicine Nephrology
DX: N25.81 Secondary hyperparathyroidism of renal origin (principal); E55.9 Vitamin D deficiency, unspecified
CPT/HCPCS: 36415; 80069; 82306; 82570; 83520; 83970; 84155; 84156; 84165; 86036; 86038; 86160; 86225

== ENCOUNTER 2024-10-04 11:37 | Outpatient (CLI) | payer MEDICARE, SELFPAY ==
--- OUTSIDE RECORDS SUMMARY | 2024-10-04 12:06 | XMS_ITS | Referral Summary ---
Author Organization [facility] Address [address] [place] [address] Care Team Providers Care Riding Silks Custodian Name Role Phone Akash Saavedra MD Unavailable Feliciano Benitez MD Unavailable [phone] Krishna Conti MD Primary Care Provider Encounters Date Type Department Care Team Description 08/09/2024 11:45 AM CDT Office Visit [facility] Medical Group Cardiology at [address] [place] [phone] Gabriela Nance MD Coronary artery disease involving [place] coronary artery of [place] heart without angina pectoris (Primary Dx); Chronic obstructive pulmonary disease, unspecified COPD type (HCC); Chronic heart failure with preserved ejection fraction (HCC); Essential hypertension; Stenosis of carotid artery, unspecified laterality from Last 3 Months Allergies Active Allergy [...] by mouth daily 90 tablet 3 03/16/2024 12/26/202 5 Active albuterol HFA (PROVENTIL HFA,VENTOLIN HFA,PROAIR HFA) 90 mcg/actuation inhaler Inhale 1 puff every 4 hours 05/01/2024 Active furosemide (LASIX) 40 mg tablet Take 1 tablet (40 mg total) by mouth daily 30 tablet 11 05/11/2024 Active Breztri Aerosphere 160-9-4.8 mcg/actuation inhaler Inhale 2 puffs 2 (two) times a day Active Active Problems Problem Noted Date Diagnosed Date Chronic heart failure with preserved ejection fr action 05/11/2024 Coronary artery disease invo lving [place] coronary artery of [place] heart without angina pectoris 05/11/2024 Essential hypertension 05/11/2024 Mixed hyperlipidemia 05/11/2024 Stenosis of carotid artery 05/11/2024 Entropion of right eyelid 10/21/2022 Bladder stone 08/25/2021 Overview (08/25/2021): Added automatically from request for surgery [id number] Social History Tobacco Use Types Packs/Day Years [...] on file Legal Sex Male 5:10 PM DELIVERY STOCK CLERK Gender Identity Not on file Sexual Orientation Not on file Last Filed Vital Signs Vital Sign Reading Time Taken Comments Blood Pressure 128/60 08/09/2024 11:33 AM CDT Pulse 58 08/09/2024 11:33 AM CDT Temperature 35.8 C (96.4 F) 10/26/2022 2:20 PM CDT Respiratory Rate 22 10/26/2022 2:50 PM CDT Oxygen Saturation 94% 08/09/2024 11:33 AM CDT Inhaled Oxygen Concentration - - Weight 77.6 kg (171 lb) 08/09/2024 11:33 AM CDT Height 165.1 cm (5' 5) 08/09/2024 11:33 AM CDT Body Mass Index 28.46 08/09/2024 11:33 AM CDT Plan of Treatment Not on file Insurance MEDICARE [facility] TRADITIONAL AETNA MEDICARE GOLD Care Teams Riding Silks Custodian Relationship Specialty Start Date End Date Krishna Conti MD [address] [facility] 20 [place] [address] PCP - General Family Medicine 02/14/24 Akash Saavedra MD [address] [place] [address] [address] [place] [address] Consulting Physician Urology 09/11/21 Feliciano Benitez MD [address] DEPT OPHTHALMOLOGY, [facility] [address] [place] [address] Surgeon Ophthalmology 10/26/22
--- OUTSIDE RECORDS SUMMARY | 2024-10-04 12:06 | XMS_ITS | Clinical Summary ---
Author Organization [facility] Address [address] [place] [address] Care Team Providers Care Training Specialist Name Role Phone Akash Saavedra MD Unavailable Feliciano Benitez MD Unavailable [phone] Krishna Conti MD Primary Care Provider Allergies [...] daily 30 tablet 11 05/11/2024 6 Active Breztri Aerosphere 160-9-4.8 mcg/actuation inhaler Inhale 2 puffs 2 (two) times a day Active Active Problems Problem Noted Date Diagnosed Date Chronic heart failure with preserved ejection fr action 05/11/2024 Coronary artery disease invo lving [place] coronary artery of [place] heart without angina pectoris 05/11/2024 Essential hypertension 05/11/2024 Mixed hyperlipidemia 05/11/2024 Stenosis of carotid artery 05/11/2024 Entropion of right eyelid 10/21/2022 Bladder stone 08/25/2021 Overview (08/25/2021): Added automatically from request for surgery [id number] Encounters Date Type Department Care Team Description 08/09/2024 11:45 AM CDT Office Visit [facility] Medical Group Cardiology at [address] [place] [address] Gabriela Nance MD Coronary artery disease involving [place] coronary artery of [place] heart without angina pectoris (Primary Dx); Chronic obstructive pulmonary disease, unspecified COPD type (HCC); Chronic heart failure with preserved ejection fraction (HCC); Essential hypertension; Stenosis of carotid artery, unspecified laterality from Last 3 Months Surgical History Surgery [...] on file Legal Sex Male 5:10 PM TSO Gender Identity Not on file Sexual Orientation [...] 08/09/2024 11:33 AM CDT Plan of Treatment Health Maintenance Due Date Last Done Comments Depression Screening 1936 DTaP/Tdap/Td Vaccine (1 - Tdap) 10/26/1947 Hepatitis B Screening 1953 Pneumococcal vaccine 65+ (1 of 2 - PCV) 10/26/1955 Zoster Vaccine (1 of 2) 1986 Well Visit 65+ 2001 Fall Risk Assessment 10/27/2023 10/26/2022 Covid-19 Vaccine ( - season) 2023, 04/15/2020 Influenza Vaccine (Season Ended) 2024 Insurance MEDICARE [facility] TRADITIONAL AETNA MEDICARE [facility] Care Teams Training Specialist Relationship Specialty Start Date End Date Krishna Conti MD [address] [place] [address] PCP - General Family Medicine 02/14/24 Akash Saavedra MD [address] [place] [address] [facility] 12 [place] [address] Consulting Physician Urology 09/11/21 Feliciano Benitez MD [address] DEPT OPHTHALMOLOGY, [place] [address] Surgeon Ophthalmology 10/26/22
[2024-10-04 12:36] LABS: Albumin Level 3.6 g/dL (3.5-5.1); Anion Gap 8 mmol/L (4-12); Blood Urea Nitrogen 65 mg/dL (9-20); Calcium 9.0 mg/dL (8.4-10.2); Carbon Dioxide 25 mmol/L (22-30); Chloride 107 mmol/L (98-107); Estimated Glomerular Filt Rate 17; Glucose 122 mg/dL (65-110); Potassium 4.4 mmol/L (3.4-5.0); Sodium 140 mmol/L (137-145)
[2024-10-04 12:40] LABS: Total Protein Urine Random 11 mg/dL; Ur Ttl Prot Creatinine Ratio 0.13 mg/mg (0-0.20)
== END 2024-10-04 11:38 | disposition home or self-care (01) ==
PROVIDERS: PCP Emergency Medicine; Visit Provider Internal Medicine Nephrology
DX: I12.9 Hypertensive chronic kidney disease with stage 1 through stage 4 chronic kidney disease, or unspecified chronic kidney disease (principal); N18.4 Chronic kidney disease, stage 4 (severe); E55.9 Vitamin D deficiency, unspecified
CPT/HCPCS: 36415; 80069; 82306; 82570; 84156

== ENCOUNTER 2024-10-26 10:26 | Outpatient (CLI) | payer MEDICARE, SELFPAY ==
--- OUTSIDE RECORDS SUMMARY | 2024-10-26 10:33 | XMS_ITS | Clinical Summary ---
Author Organization [facility] Address [address] [place] [address] Care Team Providers Care Drafter Automotive Design Name Role Phone Akash Saavedra MD Unavailable Feliciano Benitez MD Unavailable Krishna Conti MD Primary Care Provider [phone] Allergies Active Allergy Reactions Criticality Noted Date [...] action 05/11/2024 Coronary artery disease invo lving [place] coronary artery of [place] heart without angina pectoris 05/11/2024 Essential hypertension 05/11/2024 Mixed hyperlipidemia 05/11/2024 Stenosis of carotid artery 05/11/2024 Entropion of right eyelid 10/21/2022 Bladder stone 08/25/2021 Overview (08/25/2021): Added automatically from request for surgery [id number] Encounters Date Type Department Care Team Description 08/09/2024 11:45 AM CDT Office Visit [facility] Medical Group Cardiology at [address] [place] [address] Gabriela Nance MD Coronary artery disease involving [place] coronary artery of [place] heart without angina pectoris (Primary Dx); Chronic [...] on file Legal Sex Male 5:10 PM DIAMOND MOUNTER Gender Identity Not on file Sexual Orientation [...] - season) 2023, 04/15/2020 Influenza Vaccine (#1) 2024 Insurance MEDICARE [facility] TRADITIONAL AETNA MEDICARE [facility] Care Teams Drafter Automotive Design Relationship Specialty Start Date End Date Krishna Conti MD [address] [place] [address] PCP - General Family Medicine 02/14/24 Akash Saavedra MD [address] [place] [address] [facility] 12 [place] [address] Consulting Physician Urology 09/11/21 Feliciano Benitez MD [address] DEPT OPHTHALMOLOGY, [place] [address] Surgeon Ophthalmology 10/26/22
--- OUTSIDE RECORDS SUMMARY | 2024-10-26 10:33 | XMS_ITS | Continuity of Care Document ---
Author Organization [facility] Address [address] [place] [address] Phone Care Team Providers Care Ribbon Weaver Name Role Phone Krishna Conti MD Unavailable Unavailable Allergies, Adverse Reactions, Alerts Substance Reaction Status Criticality PENICILLIN Hives / Skin Rash Active No Informa tion Medications Medication Instructions Dosage Effective Dates (start - stop) Status Comments levofloxacin 750 mg tablet take 1 tablet by oral route every day 750 MG - Active Breztri Aerosphere 160 mcg-9mcg-4.8mcg/actu ation HFA aerosol inhaler inhale 2 puff by inhalation route 2 times every day in the morning and evening 2.00 puff - Active FreeStyle Curtis 3 Plus Sensor device apply to upper arm and change every 14 days - Active Lasix 40 mg tablet take 1 tablet by oral route 2 times every day 40 MG - Active lisinopril 5 mg tablet take 1 tablet by oral route every day 5 MG - Active albuterol sulfate HFA 90 mcg/actuation aerosol inhaler inhale 1 puff by inhalation route every 4 - 6 hours as needed as needed 1 puff - Active PRN for sob FreeStyle Curtis 3 [place] use with freestyle curtis 3 plus sensor [...] Providers Copied on Encounter OFFICE/OUTPA TIENT VISIT, [facility], [address], [place], [place], [address], [place] tel:[phone] [facility] DM (chief complaint) bruising1 (chief complaint) cough1 (chief complaint) Acute bronchitisType 2 diabetes mellitus without complicationsCardia c failureSpontaneous ecchymoses 5 Gallito Keller. [address], [place], [place], [address] , [place]. tel:[phone] OFFICE/OUTPA TIENT VISIT, [facility], [address], [place], [place], [address], [place] tel:[phone] [facility] COPD1 (chief complaint) DM (chief complaint) Type 2 diabetes mellitus without complicationsCentri lobular emphysema 5 Gallito Keller. [address], [address], [place], [place], [address] , [place]. tel:[phone] OFFICE/OUTPA TIENT VISIT, [facility], [address], [place], [place], [address], [place] tel:[phone] [facility] COPD1 (chief complaint) CHF1 (chief complaint) DM (chief complaint) Chronic kidney disease, stage 4 (severe)Centrilobul ar emphysemaType 2 diabetes mellitus without complicationsCardia c failure 5 Gallito Keller. [address], [place], [place], [address] , [place]. tel:[phone] OFFICE/OUTPA TIENT VISIT, [facility], [address], [place], [place], [address], [place] tel:[phone] [facility] respirator y1 (chief complaint) Acute respiratory failure with hypoxiaChronic kidney disease, stage 4 (severe) 5 Gallito Keller. [address], [place], [place], [address] , [place]. tel:[phone] OFFICE/OUTPA TIENT VISIT, [facility], [address], [address], [place] tel:[phone] [facility] DM (chief complaint) cough1 (chief complaint) Type 2 diabetes mellitus without complicationsAcute bronchitis 5 Gallito Keller. [address], [place], [place], [address] , [place]. tel:[phone] OFFICE/OUTPA TIENT VISIT, [facility], [address] [place], [address], [place] tel:[phone] [facility] DM (chief complaint) back pain1 (chief complaint) renal failure1 (chief complaint) Type 2 diabetes mellitus without complicationsChroni c pain syndromeNevus, non-neoplasticAcute kidney failure 5 Gallito Kessler [address], [address] , [place]. tel:[phone] OFFICE/OUTPA TIENT VISIT, [facility], [address] [place], [address], [place] tel:[phone] [facility] DM (chief complaint) renal disease1 (chief complaint) HF (chief complaint) skin1 (chief complaint) Acute kidney failureCardiac failureEssential (primary) hypertensionType 2 diabetes mellitus without complicationsNevus, non-neoplastic 4 Gallito Kessler [address], [place], [place], [address] , [place]. tel:[phone] [facility], [address] [place], [address], [place] tel:[phone] [facility] No Information 4 Conti Krishna. [address], [place], [place], [address] , [place]. tel:[phone] OFFICE/OUTPA TIENT VISIT, EST [facility], [address], [place], [place], [address], [place] tel:[phone] [facility] CHF1 (chief complaint) Type 2 diabetes mellitus without complicationsAcute kidney failureCardiac failureEssential (primary) hypertension 4 Conti Krishna. [address], [place], [place], [address] , [place]. tel:[phone] PREV VISIT, NEW, 65 & OVER [facility], [address], [place], [place], [address], [place] tel:[phone] [facility] physical (chief complaint) Encounter for general adult medical examination without abnormal findings 4 Conti Krishna. [address], [place], [place], [address] , [place]. tel:[phone] Family History Family Member Type Diagnosis Age At Onset Sister Problem 93, still alive, but very si ck due to old age Brother Problem of sinus cancer 85 Father Problem of alcohol related 72 Mother Problem 52 due to unknown [place] Payers Payer name Insurance type Covered libertarian ID Rhonda devries(s) Aetna Medicare CI [id number] Social History Type Description Quantity Date Captured Comments Alcohol Use Details 2 drinks yearly Caffeine Use Details Unknown Tobacco Use Status Ex-cigarette smoker 025 Smoking Status Former smoker Sex Male Vital Signs Date / Time: Height Weight BMI Pulse Rate Blood Pressure Temperature Respiratory Rate Body Surface Area Head Circumference BMI percentile Pulse Ox Inhaled Ox 4:23 PM 65.00 in 164.00 lbs 27.2 9 kg/m eter (2) 69 /min 110/60 mm[Hg] 98.0 F 16 /min Chief Complaint And Reason For Visit From encounter dated '09/25/2024 16:22'. DM (chief complaint). Description: Pt has DM Pt is off amaryl due to frequent hypoglycemia episodes. His glucose is around 120s. Pt denies any polyuria, polydipsia. bruising1 (chief complaint). Description: Pt has multiple bruising spots on his skin pt is on baby ASA daily cough1 (chief complaint). Description: Pt c/o acute onset of dry and productive coughing for 2-3 days Pt states that his cough seems worse at night Pt denies any worsening sob. Pt does have COPD and he uses breztri daily and doing ok His states that his cough is well controlled with NyQuil. Ptdenies any fever, chill, hemoptysis. Pt denies any leg edema. Pt does have history of CHF Plan Of Treatment Date Type Action Status Referral Ordered: Endocrinology, Diabetes and Metabolism (related to Type 2 diabetes mellitus without complications) ordered Referral Ordered: Referrals: Endocrinology, Diabetes and Metabolism. Evaluate and treat ordered Referral Ordered: Dermatology (related to Nevus, non-neoplastic) ordered Referral Ordered: Referrals: Dermatology. Evaluate and treat ordered Appointment Vincent Wade BOOKED History Of Present Illness Encounter Date Complaint History Of Prese nt Illness DM Pt has DM Pt is off amaryl due to frequent hypoglycemia episodes. His glucose is around 120s. Pt denies any polyuria, polydipsia. bruising1 Pt has multiple bruising spots on his skin pt is on baby ASA daily cough1 Pt c/o acute ons et of dry and productive coughing for 2-3 days Pt states that his cough seems worse at night Pt denies any worsening sob. Pt does have COPD and he uses breztri daily and doing ok His states that his cough is well controlled with NyQuil. Pt denies any fever, chill, hemoptysis. Pt denies any leg edema. Pt does have history of CHF DM Pt has DM Pt onl y takes amaryl 0.5 mg in the morning and his glucose is around 100 during the day but keeps dropping at night to 50s. COPD1 Pt has COPD Pt i s on breztri and he is doing much better in terms of breathing. COPD1 Pt has COPD. Pt no longer smoking , Pt is on symbicort and he is breathing much better per Pt denies any hemoptysis CHF1 Pt has CHF with renal disease .Pt saw cardiology and he is on lasix 40 mg daily now. He denies any sob. Pt denies any swelling Pt had renal function done yesterday and his creatine is slightly worse .he does have alexandra with nephrology in two weeks. DM Pt has DM. Pt ta kes 0.5 mg amaryl and his glucose average around 130. Pt denies any hypoglycemia respiratory1 Pt was admitted to hospital 5 days ago due to acute respiratory failure with hypoxia due to fluid overload. Pt underwent diuresis, which stopped due to chronic renal disease. pt had cardiac echo done which showed preserved LVEF. Pt sees nephrology as outpatient. Pt also sees cardiology but he did not see the fashion illustrator during inpatient stay. Pt currently denies any [...] is on lipitor and lisinopril Pt saw fashion illustrator recently and was told to continue meds and follow up in 3 months renal disease1 pt has stage III renal disease .Pt is on lisinopril Pt has normal UO .Pt saw bookkeeper receptionist and he will do some lab work [...] complaints . Instructions Date Instruction Additional Infor vicky No Information Assessments Type Assessment Date assessment Acute bronchitis assessment Type 2 diabetes mellitus without complications assessment Cardiac failure assessment Spontaneous ecchymoses Mental Status Date Cognitive Assessment Orientation - [place] ed to time, place, person, situation.
[2024-10-26 11:30] LABS: Albumin Level 3.7 g/dL (3.5-5.1); Anion Gap 9 mmol/L (4-12); Blood Urea Nitrogen 70 mg/dL (9-20); Calcium 9.2 mg/dL (8.4-10.2); Carbon Dioxide 22 mmol/L (22-30); Chloride 107 mmol/L (98-107); Estimated Glomerular Filt Rate 19; Glucose 139 mg/dL (65-110); Potassium 4.2 mmol/L (3.4-5.0); Sodium 138 mmol/L (137-145)
== END 2024-10-26 10:27 | disposition home or self-care (01) ==
LOC: ANHLAB 10:27
PROVIDERS: PCP Emergency Medicine; Visit Provider Internal Medicine Nephrology
DX: I12.9 Hypertensive chronic kidney disease with stage 1 through stage 4 chronic kidney disease, or unspecified chronic kidney disease (principal); N18.4 Chronic kidney disease, stage 4 (severe)
CPT/HCPCS: 36415; 80069

== ENCOUNTER 2024-12-04 09:52 | Outpatient (CLI) | payer MEDICARE, SELFPAY ==
--- OUTSIDE RECORDS SUMMARY | 2024-11-22 09:18 | XMS_ITS | Continuity of Care Document ---
Author Organization [facility] Address [address] [place] [address] Phone Care Team Providers Care Ballpoint Pen Assembly Machine Operator Name Role Phone Krishna Conti MD Unavailable Unavailable Allergies, Adverse Reactions, Alerts Substance Reaction Status Criticality PENICILLIN Hives / Skin Rash Active No Informa tion Medications Medication Instructions Dosage Effective Dates (start - stop) Status Comments Breztri Aerosphere 160 mcg-9mcg-4.8mcg/act uation HFA aerosol inhaler inhale 2 puff by inhalation route 2 times every day in the morning and evening 2.00 puff - Active Lasix 40 mg tablet take [...] Active PRN for sob FreeStyle Curtis 3 [place] use with freestyle curtis 3 plus sensor - Active aspirin 81 mg tablet,delayed release take 1 tablet by oral route every day 81 MG - Active Lipitor 80 mg tablet take 1 tablet by oral route every day 80 MG - Active Procedures Procedure Date OFFICE/OUTPATIENT [...] Providers Copied on Encounter OFFICE/OUTPA TIENT VISIT, [facility], [address], [place], [place], [address], [place] tel:[phone] [facility] cough1 (chief complaint) ARF (chief complaint) Acute kidney failureAcute bronchitis Nov- 5 Gallito Keller. [address], [place], [place], [address] , [place]. [phone] OFFICE/OUTPA TIENT VISIT, [facility], [address], [place], [place], [address], [place] tel:[phone] [facility] DM (chief complaint) bruising1 (chief complaint) cough1 (chief complaint) Acute bronchitisType 2 diabetes mellitus without complicationsCardia c failureSpontaneous ecchymoses 5 Gallito Keller. [address], [address], [place], [place], [address] , [place]. [phone] OFFICE/OUTPA TIENT VISIT, [facility], [address], [place], [place], [address], [place] tel:[phone] [facility] COPD1 (chief complaint) DM (chief complaint) Type 2 diabetes mellitus without complicationsCentri lobular emphysema 5 Gallito Keller. [address], [place], [place], [address] , [place]. tel:[phone] OFFICE/OUTPA TIENT VISIT, [facility], [address], [place], [place], [address], [place] tel:[phone] [facility] COPD1 (chief complaint) CHF1 (chief complaint) DM (chief complaint) Chronic kidney disease, stage 4 (severe)Centrilobul ar emphysemaType 2 diabetes mellitus without complicationsCardia c failure 5 Gallito Keller. [address], [place], [place], [address] , [place]. tel:[phone] OFFICE/OUTPA TIENT VISIT, [facility], [address], [place], [place], [address], [place] tel:[phone] [facility] respirator y1 (chief complaint) Acute respiratory failure with hypoxiaChronic kidney disease, stage 4 (severe) 5 Galilto Keller. [address], [place], [place], [address] , [place]. tel:[phone] OFFICE/OUTPA TIENT VISIT, [facility], [address], [place], [place], [address], [place] tel:[phone] [facility] DM (chief complaint) cough1 (chief complaint) Type 2 diabetes mellitus without complicationsAcute bronchitis 5 Gallito Keller. [address], [place], [place], [address] , [place]. tel:[phone] OFFICE/OUTPA TIENT VISIT, [facility], [address], [place], [place], [address], [place] tel:[phone] [facility] DM (chief complaint) back pain1 (chief complaint) renal failure1 (chief complaint) Type 2 diabetes mellitus without complicationsChroni c pain syndromeNevus, non-neoplasticAcute kidney failure 5 Gallito Keller. [address], [place], [place], [address] , [place]. tel:[phone] OFFICE/OUTPA TIENT VISIT, [facility], [address], [place], [place], [address], [place] tel:[phone] [facility] DM (chief complaint) renal disease1 (chief complaint) HF (chief complaint) skin1 (chief complaint) Acute kidney failureCardiac failureEssential (primary) hypertensionType 2 diabetes mellitus without complicationsNevus, non-neoplastic 4 Gallito Keller. [address], [place], [place], [address] , [place]. tel:[phone] [facility], [address], [place], [place], [address], [place] tel:[phone] [facility] No Information 4 Gallito Keller. [address], [place], [place], [address] , [place]. tel:[phone] OFFICE/OUTPA TIENT VISIT, [facility], [address], [place], [place], [address], [place] tel:[phone] [facility] CHF1 (chief complaint) Type 2 diabetes mellitus without complicationsAcute kidney failureCardiac failureEssential (primary) hypertension 4 Gallito Keller. [address], [place], [place], [address] , [place]. tel:[phone] PREV VISIT, NEW, 65 & OVER [facility], [address], [place], [place], [address], [place] tel:[phone] [facility] physical (chief complaint) Encounter for general adult medical examination without abnormal findings 4 Gallito Keller. [address], [place], [place], [address] , [place]. tel:[phone] Family History Family Member Type Diagnosis Age At Onset Sister Problem 93, still alive, but very si ck due to old age Brother Problem of sinus cancer 85 Father Problem of alcohol related 72 Mother Problem 52 due to unknown [place] Payers Payer name Insurance type Covered alliance party ID Hosseina shelleywarren(s) Aetna Medicare CI [id number] Social History Type Description Quantity Date Captured Comments Alcohol Use Details 2 drinks yearly Caffeine Use Details Unknown Tobacco Use Status Ex-cigarette smoker 025 Smoking Status Former smoker Sex Male Vital Signs Date / Time: Height Weight BMI Pulse Rate Blood Pressure Temperature Respiratory Rate Body Surface Area Head Circumference BMI percentile Pulse Ox Inhaled Ox 2:25 PM 65.00 in 166.00 lbs 27.6 2 kg/m eter (2) 59 /min 120/60 mm[Hg] 98.2 F 16 /min Chief Complaint And Reason For Visit From encounter dated '11/22/2024 14:18'. cough1 (chief complaint). Description: pt c/o acute onset of dry and wet cough for several days Pt denies any sob pt denies any chest pain. pt denies any hemoptysis. Pt does have COPD Pt is on breztri and he is doing well ARF (chief complaint). Description: Pt has chronic renal failure Pt sees nephrology his GFR is 19 recently Pt has normal UO Pt was told by nephrology to take lasix every other day instead of daily Plan Of Treatment Date Type Action Status Referral Ordered: Endocrinology, Diabetes and Metabolism (related to Type 2 diabetes mellitus without complications) ordered Referral Ordered: Referrals: Endocrinology, Diabetes and Metabolism. Evaluate and treat ordered Referral Ordered: Dermatology (related to Nevus, non-neoplastic) ordered Referral Ordered: Referrals: Dermatology. Evaluate and treat ordered History Of Present Illness Encounter Date Complaint History Of Prese nt Illness cough1 pt c/o acute ons et of dry and wet cough for several days Pt denies any sob pt denies any chest pain. pt denies any hemoptysis. Pt does have COPD Pt is on breztri and he is doing well ARF Pt has chronic r enal failure Pt sees nephrology his GFR is 19 recently Pt has normal UO Pt was told by nephrology to take lasix every other day instead of daily DM Pt has DM Pt is off [...] edema. Pt does have history of CHF COPD Pt has COPD Pt i s on breztri and he is doing much better in terms of breathing. DM Pt has DM Pt onl y takes amaryl 0.5 mg in the morning and his glucose is around 100 during the day but keeps dropping at night to 50s. COPD1 Pt has COPD. Pt no longer smoking , Pt is on symbicort and he is breathing much better per Pt denies any hemoptysis CHF Pt has CHF with renal disease .Pt [...] cardiology but he did not see the grit removal operator during inpatient stay. Pt currently denies any worsening sob. Pt denies any chest pain DM Pt has DM pt is on 0.5 mg amaryl in the morning and he no longer has night time hypoglycemia. his glucose is around 150s during the day. cough1 Pt c/o acute dry cough, chest congestion, winded for 5 days Pt denies any fever, chill, sore throat Pt has mild sinus congestion as well DM Pt has DM pt yamilex es [...] function and creatine. Pt has normal UO DM Pt has DM Pt is taking amaryl and his glucose is around 115s. pt denies any hypoglycemia. He had couple of episode of BG drop to 50s around 1 am but rest of time, his glucose is ok renal disease1 pt has stage III renal disease .Pt is on lisinopril Pt has normal UO .Pt saw carton filling machine operator and he will do some lab work soon. he was told that his kidney is fine currently HF Pt has recent HF . Pt denies any swelling Pt is on lipitor and lisinopril Pt saw grit removal operator recently and was told to continue meds and follow up in 3 months skin1 Pt notices a sma ll recurrent scab left chin area for 6 weeks with bleeding whenever he shaves. CHF1 Pt was recently admitted to hospital [...] Information Assessments Type Assessment Date assessment Acute kidney failure assessment Acute bronchitis Mental Status Date Cognitive Assessment Orientation - [place] ed to time, place, person, situation.
[2024-12-04 10:49] LABS: Albumin Level 4.0 g/dL (3.5-5.1); Anion Gap 9 mmol/L (4-12); Blood Urea Nitrogen 63 mg/dL (9-20); Calcium 9.6 mg/dL (8.4-10.2); Carbon Dioxide 26 mmol/L (22-30); Chloride 105 mmol/L (98-107); Estimated Glomerular Filt Rate 19; Glucose 116 mg/dL (65-110); Potassium 4.3 mmol/L (3.4-5.0); Sodium 140 mmol/L (137-145)
--- OUTSIDE RECORDS SUMMARY | 2024-12-04 10:58 | XMS_ITS | Encounter Summary ---
Author Organization [facility] Healthcare Address [address] [place] [address] Care Team Providers Care Deckhand Fishing Vessel Name Role Phone Akash Saavedra MD Unavailable Feliciano Benitez MD Unavailable [phone] Krishna Conti MD Primary Care Provider Encounter Details Date Type Department Care Team (Late st Contact Info) Description 05/03/2024 Orders Only [facility] Health Information Management [address] [place] [address] Scanning, Provider Social History Tobacco Use Types Packs/Day Years Used Date Smoking Tobacco: Former Cigarettes 1 72 0 [birth year]/20/1949 - 07/20/2021 Smokeless Tobacco: Never Comments:Smoking History Pac ks/day: 1 Packs Alcohol Use Standard Drinks/Week Comments [...] on file 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 Gender Identity Not on file Sexual Orientation Not on file documented as of this encounter Plan of Treatment Not on file documented as of this encounter Procedures Procedure Name Priority Date/Time Associated Diagnosis Comments CARDIOLOGY DOCUMENT SCAN 05/03/2024 documented in this encounter Results * Cardiology Document Scan (05/03/2024) Anatomical Region Laterality Modality Other us Provider Scanning CV CARDIAC SERVICES PROCEDURES Final Result documented in this encounter Visit Diagnoses Not on filedocumented in this encounter Care Teams Deckhand Fishing Vessel Relationship Specialty Start Date End Date Krishna Conti MD [address] [place] [address] [address] [place] [address] PCP - General Family Medicine 02/14/24 Akash Saavedra MD [address] [facility] [address] [place] [address] Consulting Physician Urology 09/11/21 Feliciano Benitez MD [address] DEPT OPHTHALMOLOGY, [facility] [address] [place] [address] Surgeon Ophthalmology 10/26/22 documented as of this encounter
--- OUTSIDE RECORDS SUMMARY | 2024-12-04 10:58 | XMS_ITS | Clinical Summary ---
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/11/2024 Entropion of right eyelid 10/21/2022 Bladder stone 08/25/2021 Overview (08/25/2021): Added automatically from request for surgery [id number] Surgical History Surgery Date Site/Laterality Comments CAROTID [...] on file 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 Gender Identity Not on file Sexual Orientation [...] Assessment 10/27/2023 10/26/2022 Covid-19 Vaccine (3 - 2024- season) 2024, 04/15/2020 Influenza Vaccine (#1) 2024 Insurance MEDICARE [facility] TRADITIONAL [employer] MEDICARE GOLD Care Teams Professional Wrestler Relationship Specialty Start Date End Date Krishna Conti MD [address] [facility] [address] [place] [address] PCP - General Family Medicine 02/14/24 Akash Saavedra MD [address] [place] [address] [facility] [address] [place] [address] Consulting Physician Urology 09/11/21 Feliciano Benitez MD [address] DEPT OPHTHALMOLOGY, [facility] [address] [place] [address] Surgeon Ophthalmology 10/26/22
--- OUTSIDE RECORDS SUMMARY | 2024-12-04 10:58 | XMS_ITS | Encounter Summary ---
Author Organization [facility] Healthcare Address [address] [place] [address] Care Team Providers Care Precision Honer Name Role Phone Akash Saavedra MD Unavailable No, Physician Primary Care Provider [phone] Feliciano Benitez MD Unavailable [phone] Krishna Conti MD Primary Care Provider [phone] Encounter Details Date Type Department Care Team (Late st Contact Info) Description 01/24/2024 Orders Only [facility] [place] [facility] Information Management [address] [place] [address] Scanning, Provider Social History Tobacco Use Types [...] on file 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 Gender Identity Not on file Sexual Orientation Not on file documented as of this encounter Plan of Treatment Not on file documented as of this encounter Procedures Procedure Name Priority Date/Time Associated Diagnosis Comments SCAN - RADIOLOGY/IMAGING 01/24/2024 documented in this encounter Results * SCAN - RADIOLOGY/IMAGING (01/24/2024) Anatomical Region Laterality Modality Other us Provider Scanning Edited Result - Final documented in this encounter Visit Diagnoses Not on filedocumented in this encounter Care Teams Precision Honer Relationship Specialty Start Date End Date No, Physician PCP - General 10/20/22 02/13/24 Krishna Conti MD [address] [facility] 20 [place], [place] [id number] PCP - General Family Medicine 02/14/24 Akash Saavedra MD [address] [facility] 12 [place] [address] Consulting Physician Urology 09/11/21 Feliciano Benitez MD [address] DEPT OPHTHALMOLOGY, [facility] [address] [place] [address] Surgeon Ophthalmology 10/26/22 documented as of this encounter
== END 2024-12-04 09:53 | disposition home or self-care (01) ==
PROVIDERS: PCP Emergency Medicine; Visit Provider Internal Medicine Nephrology
DX: N17.9 Acute kidney failure, unspecified (principal); N18.4 Chronic kidney disease, stage 4 (severe)
CPT/HCPCS: 36415; 80069

== ENCOUNTER 2025-01-16 15:14 | Outpatient (CLI) | payer MEDICARE, SELFPAY ==
--- NOTE | ~2025-01-16 | US_ITS ---
EXAMINATION: US venous doppler LE RT, 01/16/2025 15:30 CDT HISTORY: pain in right lower leg Comparison: None Technique: Rai-scale and color Doppler images were attempted of the lower saphenofemoral junction, common femoral vein,superficial femoral vein, proximal deep femoral vein, proximal deep femoral vein, popliteal vein and posterior tibial veins. Findings: Deep Venous System:Normal flow, augmentation and compressibility. No echogenic thrombus identified. The contralateral saphenofemoral junction appears unremarkable. Superficial Venous SystemNo superficial thrombophlebitis. Soft tissues: Soft tissues are unremarkable. Impression: Negative for DVT. Reviewed, dictated and finalized at location P. Impression: Negative for DVT.
--- OUTSIDE RECORDS SUMMARY | 2025-01-16 17:26 | XMS_ITS | Encounter Summary ---
Author Organization [facility] Healthcare Address [address] [place] [address] Care Team Providers Care Quality Assurance Inspector Name Role Phone Akash Saavedra MD Unavailable No, Physician Primary Care Provider [phone] Feliciano Benitez MD Unavailable [phone] Krishna Conti MD Primary Care Provider [phone] Encounter Details Date Type Department Care Team (Late st Contact Info) Description 01/24/2024 Orders Only [facility] [place] [address] [place] [address] Scanning, Provider Social History Tobacco Use Types [...] on file 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 Gender Identity Not on file Sexual [...] on filedocumented in this encounter Care Teams Quality Assurance Inspector Relationship Specialty Start Date End Date No, Physician PCP - General 10/20/22 02/13/24 Krishna Conti MD [address] [facility] 20 [place], [place] [id number] PCP - General Family Medicine 02/14/24 Akash Saavedra MD [address] [facility] 12 [place] [address] Consulting Physician Urology 09/11/21 Feliciano Benitez MD [address] DEPT OPHTHALMOLOGY, [facility] [address] [place] [address] Surgeon Ophthalmology 10/26/22 documented as of this encounter
--- OUTSIDE RECORDS SUMMARY | 2025-01-16 17:26 | XMS_ITS | Encounter Summary ---
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
--- OUTSIDE RECORDS SUMMARY | 2025-01-16 17:26 | XMS_ITS | Clinical Summary ---
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 Entropion of right eyelid 10/21/2022 Bladder stone 08/25/2021 Overview (08/25/2021): Added automatically from request for surgery [id number] Surgical History Surgery Date Site/Laterality Comments CAROTID [...] on file 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 Gender Identity Not on file Sexual Orientation [...] 04/15/2020 Influenza Vaccine (#1) 2024 Insurance MEDICARE [facility] TRADITIONAL [employer] MEDICARE GOLD Care Teams Offset Platemaker Relationship Specialty Start Date End Date Krishna Conti MD [address] [facility] 20 [place] [address] PCP - General Family Medicine 02/14/24 Akash Saavedra MD [address] [place] [address] DEJUAN PERES [facility] 12 [place] [address] Consulting Physician Urology 09/11/21 Feliciano Benitez MD [address] DEPT OPHTHALMOLOGY, [facility] [address] [place] [address] Surgeon Ophthalmology 10/26/22
== END 2025-01-16 15:15 | disposition home or self-care (01) ==
PROVIDERS: PCP Emergency Medicine; Visit Provider Emergency Medicine
DX: M79.661 Pain in right lower leg (principal)
CPT/HCPCS: 93971

== ENCOUNTER 2025-02-16 10:48 | Outpatient (CLI) | payer MEDICARE, SELFPAY ==
--- OUTSIDE RECORDS SUMMARY | 2025-02-16 10:52 | XMS_ITS | Encounter Summary ---
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
--- OUTSIDE RECORDS SUMMARY | 2025-02-16 10:52 | XMS_ITS | Encounter Summary ---
Author Organization [facility] Healthcare Address [address] [place] [address] Care Team Providers Care Ballistician Name Role Phone Akash Saavedra MD Unavailable No, Physician Primary Care Provider [phone] Feliciano Benitez MD Unavailable [phone] Krishna Conti MD Primary Care Provider [phone] Encounter Details Date Type Department Care Team (Late st Contact Info) Description 01/24/2024 Orders Only [facility] [place] Information Management [address] [place] [address] Scanning, Provider Social History Tobacco Use Types [...] on file 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 Gender Identity Not on file Sexual [...] on filedocumented in this encounter Care Teams Ballistician Relationship Specialty Start Date End Date No, Physician PCP - General 10/20/22 02/13/24 Krishna Conti MD [address] [facility] 20 [place], [place] [phone] PCP - General Family Medicine 02/14/24 Akash Saavedra MD [address] [facility] 12 [place] [address] Consulting Physician Urology 09/11/21 Feliciano Benitez MD [address] DEPT OPHTHALMOLOGY, [facility] 260 [place] [address] Surgeon Ophthalmology 10/26/22 documented as of this encounter
--- OUTSIDE RECORDS SUMMARY | 2025-02-16 10:52 | XMS_ITS | Clinical Summary ---
Author Organization [facility] Address [address] [place] [address] Care Team Providers Care Oil Well Pumper Name Role Phone Akash Saavedra MD Unavailable Feliciano Benitez MD Unavailable [phone] Krishna Conti MD Primary Care Provider [phone] Allergies Active Allergy Reactions Criticality Noted Date Comments Penicillins Hives,Urticaria High 01/25/2012 Medications aspirin 81 mg enteric coated tablet Take 1 tablet (81 mg total) by mouth every morning 4 Active glimepiride (AMARYL) 1 mg tablet Take 0.5 tablets (0.5 mg total) by mouth daily 4 Active lisinopriL (PRINIVIL,ZEST RIL) 5 mg tablet Take 1 tablet (5 mg total) by mouth daily 4 Active albuterol HFA (PROVENTIL HFA,VENTOLIN HFA,PROAIR HFA) 90 mcg/actuation inhaler Inhale 1 puff every 4 hours 5 Active furosemide (LASIX) 40 mg tablet Take 1 tablet (40 mg total) by mouth daily 30 tablet 11 5 05/11/19 26 Active Breztri Aerosphere 160-9-4.8 mcg/actuation inhaler Inhale 2 puffs 2 (two) times a day Active atorvastatin (LIPITOR) 80 mg tablet TAKE 1 TABLET BY MOUTH EVERY DAY 90 tablet 3 5 Active atorvastatin (LIPITOR) 80 mg tablet Take 1 tablet (80 mg total) by mouth daily 90 tablet 3 4 01/31/20 25 Discontinued Active Problems Problem Noted Date Diagnosed Date Chronic heart failure with preserved ejection fr action 05/11/2024 Coronary artery disease invo lving [place] coronary artery of [place] heart without angina pectoris 05/11/2024 Essential hypertension 05/11/2024 Mixed hyperlipidemia 05/11/2024 Stenosis of carotid artery 05/11/2024 Entropion of right eyelid 10/21/2022 Bladder stone 08/25/2021 Overview (08/25/2021): Added automatically from request for surgery [id number] Surgical History Surgery Date Site/Laterality Comments CAROTID ENARTERECTOMYY Left Left Carotid Endarterectomy. 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 Gender Identity Not on file Sexual Orientation [...] 10/27/2023 10/26/2022 Covid-19 Vaccine (3 - season) 2024, 04/15/2020 Influenza Vaccine (#1) 2024 [place] [address] [facility] TRADITIONAL [facility] MEDICARE GOLD Care Teams Oil Well Pumper Relationship Specialty Start Date End Date Krishna Conti MD [address] [facility] 20 [place] [address] PCP - General Family Medicine 02/14/24 Akash Saavedra MD [address] [place] [address] DEJUAN PERES [facility] 12 [place] [address] Consulting Physician Urology 09/11/21 Feliciano Benitez MD [address] DEPT OPHTHALMOLOGY, [facility] [address] [place] [address] Surgeon Ophthalmology 10/26/22
[2025-02-16 11:47] LABS: Albumin Level 4.1 g/dL (3.5-5.1); Anion Gap 10 mmol/L (4-12); Blood Urea Nitrogen 69 mg/dL (9-20); Calcium 9.7 mg/dL (8.4-10.2); Carbon Dioxide 23 mmol/L (22-30); Chloride 107 mmol/L (98-107); Estimated Glomerular Filt Rate 18; Glucose 169 mg/dL (65-110); Potassium 4.5 mmol/L (3.4-5.0); Sodium 140 mmol/L (137-145)
[2025-02-16 11:50] LABS: Parathyroid Intact 34.4 pg/mL (14.5-75.2)
[2025-02-16 12:11] LABS: Total Protein Urine Random 20 mg/dL; Ur Ttl Prot Creatinine Ratio 0.17 mg/mg (0-0.20)
== END 2025-02-16 10:49 | disposition home or self-care (01) ==
LOC: ANHLAB 10:50
PROVIDERS: PCP Emergency Medicine; Visit Provider Internal Medicine Nephrology
DX: I12.9 Hypertensive chronic kidney disease with stage 1 through stage 4 chronic kidney disease, or unspecified chronic kidney disease (principal); N18.4 Chronic kidney disease, stage 4 (severe); N25.81 Secondary hyperparathyroidism of renal origin; E55.9 Vitamin D deficiency, unspecified
CPT/HCPCS: 36415; 80069; 82306; 82570; 83970; 84156